=== PATIENT | male | born 1960 | race Caucasian/White ===

== ENCOUNTER → 2018-03-14 07:01 | Outpatient (CLI) | payer MEDICARE, OTHER, SELFPAY ==
--- NOTE | 2018-03-14 07:04 | NM_ITS ---
History and Indications: Chest pain, shortness of breath, tobacco use, family history Procedure: Patient received 0.4 mg of Lexiscan, resting heart rate was 86 bpm, resting blood pressure 141/101 with Lexiscan maximum heart rate achieved was 105 bpm which is less than 85% of the maximum predicted heart rate and a blood pressure was 156/94. With Lexiscan patient complained of shortness of breath. Electrocardiogram: Resting electrocardiogram showed sinus rhythm, with Lexiscan there is less than 1.[address] segment depression noted from the baseline EKG. The EKG portion of the Lexiscan Myoview is nondiagnostic. Cardiac stress and resting SPECT images: Cardiac stress and rest SPECT images were obtained using technetium 99 Myoview 30.4 mCi at stress and 10.5 mCi at rest. Gated SPECT further analysis of segmental wall motion and calculation of the ejection fraction also done. Cardiac stress and rest SPECT images show mild reduced tracer activity in the wall which improves on the resting images suggestive of reversible ischemia, computer derived ejection fraction is 53% with no obvious regional wall motion abnormality, right ventricle is normal size and contractility. Conclusion: 1. The EKG portion of the Lexiscan Myoview is nondiagnostic. 2. Scintigraphic evidence of mild reversible ischemia involving the inferior wall, either derived ejection fraction is 53% with no obvious regional wall motion abnormality, right ventricle is normal size and contractility. 3. Abnormal Lexiscan Myoview study.
--- NOTE | 2018-03-14 07:04 | CA_ITS ---
PROCEDURE: 2-D M-mode and color Doppler study INDICATIONS FOR THE TEST: Chest pain+ COPD Heart Murmur Tobacco Smoking+ Palpitations Fatigue+ Syncope Edema Hypertension+Diabetes Mellitus Rheumatic Fever SOB+CORDERO+Obesity Hyperlipidemia Family History HD Additional History tachycardia PATIENT INFORMATION HEIGHT: 63 WEIGHT: 133 GENDER: Male B/P: 156/95 2-D/M-MODE INTERPRETATION: 2-D MEASUREMENTS OBSERVED VALUES IN CMS Right Ventricular Dimension (RVDd) 1.3 Interventricular Septum (Thickness)(IVsd) 0.9 Left Ventricular Internal Dimensions(LVIDd) 4.7 Left Ventricular Posterior Wall (Thickness)(LVPWd) 0.8 Aortic Root 2.8 Aortic Cusp Separation 2.1 Left Atrial Dimensions (LAD) 3.0 2D 1. Left atrium is mildly enlarged, left ventricle is normal size, there is no concentric left ventricular hypertrophy, visually estimated ejection fraction 55% with no obvious regional wall motion abnormality. 2. The right atrium and right ventricle are normal size and contractility. 3. The aortic, mitral and tricuspid valves are grossly normal. 4. The pulmonic valve is poorly visualized. 5. No significant pericardial effusion noted. DOPPLER INTERROGATION: Doppler interrogation of the aortic, mitral and tricuspid valvular presence of mild mitral and tricuspid regurgitation, tricuspid and jet velocity is insufficient for calculation of the right ventricular systolic pressure, grade 1 diastolic dysfunction seen without tissue Doppler evidence of raised left atrial pressure. CONCLUSION: 1. Mildly enlarged left atrium, normal left ventricular size, visually estimated ejection fraction 55% with no obvious regional wall motion abnormality, grade 1 diastolic dysfunction seen without tissue Doppler evidence of raised left atrial pressure. 2. Mild mitral and tricuspid regurgitation 3. No significant pericardial effusion noted.
--- NOTE | 2018-03-14 10:37 | HMH.ITSHM ---
bismatrol voltaren zanaflex thorazine metoprolol
== END ==
PROVIDERS: PCP Emergency Medicine; Visit Provider Internal Medicine Cardiovascular Disease
DX: R07.9 Chest pain, unspecified (principal); R06.09 Other forms of dyspnea; I20.8 Other forms of angina pectoris
CPT/HCPCS: 78452; 93017; 93306; A9502; J2785

== ENCOUNTER → 2021-04-12 07:13 | Outpatient (CLI) | payer MEDICARE, OTHER, MEDICAID, SELFPAY ==
--- NOTE | 2021-04-12 07:15 | CA_ITS ---
APPROVED REPORT EXAM: Comprehensive 2D, Doppler, and color-flow Echocardiogram Snowboard Designer: ROSA Quezada, RVS Ht: 5 ft 3 in Wt: 130lbs BSA: 1.61 BP: 112/70 mmHg Indications: Chest Pain, Smoker with constant cough Echo Enhancing Agent Comments: Poor acoustic windows due to body habitus, lung impedenceand constant motion with cough. 2D Dimensions IVSd 1.50 cm LVEF (Visual) 68.50 % PWd 0.98 cm LA Volume 30.00 mL LVDd 3.70 cm LA Volume Index 18.60 mL/m2 (M/F) 16-34 LVDs 2.31 cm Aortic Root 2.88 cm Left Atrium 2.34 cm LVOT 1.78 cm (M/F) 1.5-2.5 M-Mode Dimensions LA Diam 3.14 cm (1.9-4.0) Ao Diam 2.73 cm (2.0-3.7) TAPSE 1.88 (<1.7) LV Diastology E Decel Time 157.00 (160-240 msec) E/A Ratio 0.97 MED E' 8.30 (< 7 cm/sec) MED A' 7.00 cm/s E'/MED E' Ratio 8.17 (>14) LAT E' 8.70 (<10 cm/sec) LAT A' 9.80 cm/s E/LAT E' Ratio 7.79 (>14) Aortic Valve LVOT Max 87.00 (70-110 cm/s) LVOT VTI 17.75 cm AoV Peak Pj. 94.00 (50-130 cm/s) AO Peak GR. 3.60 mmHg AO Mean GR. 1.80 (<5 mmHg) AO VTI 19.97 (18-25 cm) DEV (VTI) 2.21 (2.5-4.5 cm2) Mitral Valve MV A Velocity 70.00 (40-130 cm/s) E/A Ratio 0.97 MV Decel. Time 157.00 (160-240 ms) Pulmonary Valve PV Peak Velocity 71.00 (50-150 cm/s) Tricuspid Valve TR P. Velocity 130.00 cm/s RAP Estimate 10.00 mmHg RVSP 16.80 mmHg Left Ventricle Left atrium is qualitatively mildly enlarged, left ventricle is normal size, mild concentric left ventricular hypertrophy, visually estimated ejection fraction approximately 50% with no regional wall motion abnormality, endocardial surface a very poorly visualized. Diastolic parameters are inconclusive. Right Ventricle Right atrium and right ventricle mildly enlarged with normal contractility. Aortic Valve Aortic valve is minimally thickened and fibrosed, there is no aortic stenosis or aortic insufficiency. Mitral Valve Mitral valve grossly normal, there is trace mitral regurgitation. Tricuspid Valve Tricuspid grossly normal, there is trace tricuspid regurgitation, tricuspid regurgitation jet velocity is inadequate calculation of the right ventricular systolic pressure. Pulmonic Valve Pulmonic valve is poorly visualized. Great Vessels Aortic root is normal size. Pericardium No significant pericardial effusion noted. Conclusion 1. Mild biatrial enlargement, normal left ventricular size, mild concentric left ventricular hypertrophy, visually estimated ejection fraction 50% with no regional wall motion abnormality, endocardial surfaces are poorly visualized. 2. Mildly enlarged right ventricle with normal contractility. 3. Trace mitral and tricuspid regurgitation. 4. No significant pericardial effusion noted. Electronically signed by : Sidney Bernard MD 04/12/2021 20:38:35
--- NOTE | 2021-04-12 07:15 | NM_ITS ---
APPROVED REPORT Exam: Nuclear Stress Test Indication: Chest pain, Fatigue, Tobacco use Patient Location: Outpatient Stress Tech: Janiya Morton NM Tech:Yakelin Smith, ARRT, RT (R)(N) Ht: 5 ft 3 in Wt: 130 lbs HR: 78 bpm BP: 140/93 mmHg BSA: 1.61 m2 BMI: 23.0 History: Chest pain, Fatigue, Tobacco use Procedure: Patient received a 0.4 mg of intravenous Lexiscan, resting heart rate 78 bpm, resting blood pressure 140/93 mmHg, with Lexiscan maximum heart rate achived was 96 bpm which is Less than 85 % of the maximum predicted heart rate and blood pressure was 140/95 mmHg. With Lexiscan, patient denied any complaint of chest pain. Electrocardiogram Resting electrocardiogram shows sinus rhythm, with Lexiscan there is less than 1.[address] segment depression noted from the baseline EKG. The EKG portion of the Lexiscan Myoview is nondiagnostic. Cardiac Stress and Resting SPECT Images: Cardiac Stress and Resting SPECT images were obtained using technetium 99m Myoview 30.3 mCi stress and 9.95 mCi at rest. Gated SPECT for analysis of segmental wall motion and calculation of the ejection fraction also done, prone images were also obtained. Cardiac stress and resting SPECT images show uniform myocardial activity without segmental perfusion abnormality, computer derived ejection fraction is 54% with no regional wall motion abnormality, right ventricle is mildly enlarged with normal contractility, there is transient ischemic dilatation of the left ventricle seen, raising the concerns for presence of balanced ischemia. Conclusion: 1. The EKG portion of the Lexiscan is nondiagnostic. 2. No scintigraphic evidence of reversible ischemia seen, computer derived ejection fraction is 54% with no regional wall motion abnormality, right ventricle is mildly enlarged with normal contractility, there is transient ischemic dilatation of the left ventricle seen, raising the concerns for presence of balanced ischemia, other causes for transient ischemic dilatation of the left ventricle includes microvascular disease, elevated left ventricular end-diastolic pressure, hypertensive heart disease and diabetes. Clinical correlation is recommended. 3. Abnormal Lexiscan Myoview study. Electronically signed by : Sidney Bernard MD 04/12/2021 19:36:41
--- NOTE | 2021-04-12 07:15 | CA_ITS ---
APPROVED REPORT Exam: Pharmacologic Technologist: Janiya Morton Ht: 5 ft 3 in Wt: 130 lbs BSA: 1.61 m2 HR: 78 bpm BP: 140/93 mmHg Indications: Chest pain Medical History Medications: Omeprazole,,,,, Aspirin,,,,, Mirtazopine,,,,, ClonAZEPAM,,,,, Acetaminophen,,,,, Sertraline,,,,, BenaDRYL,,,,, Trazodone,,,,, ZYprexa,,,,, Remeron,,,,, PEPTO-Bismol,,,,, CHlorpromazine,,,,, Stress Test Details Test: LEXISCAN HR Resting HR: 77 bpm Max Heart Rate (APMHR): 162.303261 bpm Max HR Achieved: 97 bpm Target HR (85% APMHR): 137.026182 bpm % of APMHR: 59.88 Recovery HR: 84 bpm BP Resting BP: 140.0/93.0 mmHg Max BP: 150.0/94.0 mmHg Recovery BP: 150.0/102.0 mmHg ECG Resting ECG: Normal sinus rhythm Clinical Exercise duration: 04:01 min Highest Stage Achieved: Stress ECG Conclusion Symptoms: Shortness of air, mild stomach discomfort, malaise. No chest pain. Arrhythmias/Ectopy: Brief, transient bradycardia with heart block. ST-T Changes: No significant changes. Conclusion: Unremarkable Lexiscan stress. Myoview images reported separately. Electronically signed by : Sidney Bernard MD 04/12/2021 19:30:20
--- NOTE | 2021-04-12 09:01 | HMH.ITSHM ---
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 []ASA OMEPRAZOLE CHLORPROMAZINE CLONAZEPAM DIPHEN METOPROLOL MIRTAZAPINE OLANZAPINE SERTRALINE TRAZADONE
== END ==
PROVIDERS: PCP Emergency Medicine; Visit Provider Urology
DX: F17.200 Nicotine dependence, unspecified, uncomplicated (principal); F41.9 Anxiety disorder, unspecified; R07.89 Other chest pain
CPT/HCPCS: 78452; 93017; 93306; A9502; J2785

== ENCOUNTER 2022-04-13 08:04 | Inpatient (IN) | payer MEDICARE, OTHER, SELFPAY ==
[2022-04-13] VITALS (19 sets, daily range): BP systolic 114–154; BP diastolic 68–98; PULSE 76–115; RESP 18–33; TEMP 36.6–37.6; O2SAT 91–100; BMI 20.9; BMI 19.7
--- NOTE | 2022-04-13 08:17 | XR_ITS ---
FINAL REPORT CLINICAL HISTORY: cough FINDINGS: The heart size is normal. The mediastinum is normal. There is mild scarring. There is no focal infiltrate or edema. There are no pleural effusions. There is no pneumothorax. There is no osseous abnormality. IMPRESSION: No acute cardiopulmonary process Reviewed, Interpreted and Dictated by Jim Urbina III, MD Transcribed by Tyler Oakley Authenticated and [facility]
--- NOTE | 2022-04-13 08:18 | CT_ITS ---
FINAL REPORT CLINICAL HISTORY: confusion FINDINGS: Axial images of the head were obtained without contrast. Coronal reformatted images were also obtained. This study was performed with techniques to keep radiation doses as low as reasonably achievable (ALARA). Individualized dose reduction techniques using automated exposure control or adjustment of mA and/or kV according to the patient's size were employed. There is generalized age-appropriate atrophy. Periventricular low-attenuation areas are seen consistent with mild chronic ischemic changes. There is no evidence of intracranial hemorrhage or mass. There is no evidence of acute infarct. There is no evidence of shift of the midline structures. No skull abnormality is seen on the bone window images. IMPRESSION: Atrophy and mild periventricular chronic ischemic changes. No acute intracranial abnormality identified. Reviewed, Interpreted and Dictated by Jim Urbina III, MD Transcribed by Tyler Oakley Authenticated and [facility]
--- NOTE | 2022-04-13 08:44 | PC.NURSE ---
pt to ct per stretcher
--- NOTE | 2022-04-13 08:47 | HMH.EDGENADL ---
Discharge Plan Disposition Patient Disposition: Admitted As Inpatient Condition: Fair Prescriptions Prescriptions: No Action acetaminophen [Tylenol Extra Strength] 500 mg tablet 500 mg PO Q6H PRN (Reason: unknown) chlorpromazine 200 mg tablet 200 mg PO QHS olanzapine [Zyprexa] 20 mg tablet 20 mg PO QHS omeprazole 40 mg capsule,delayed release(DR/EC) 40 mg PO DAILY metoprolol succinate 100 mg tablet extended release 24 hr 100 mg PO DAILY aspirin [Adult Low Dose Aspirin] 81 mg tablet,delayed release (DR/EC) 81 mg PO DAILY trazodone 100 mg tablet 100 mg PO HS mirtazapine 45 mg tablet 45 mg PO HS clonazepam 1 mg tablet 1 mg PO QHS sertraline [Zoloft] 100 mg Tablet 100 mg PO DAILY oxcarbazepine 300 mg Tablet 300 mg PO BID Referrals Follow up/Referrals: James Menchaca MD [Primary Care Provider] - See instructions Clinical Impressions Clinical Impression: Syncope, Rhabdomyolysis due to COVID-19 Discharge ED Provider: Anupam Villaseñor General Adult HPI General Chief complaint: Fall Stated complaint: AMS Time Seen by Provider: 04/13/22 08:10 Mode of Arrival: Ambulatory Source of Information: Patient Limitations: No Limitations Description of Symptoms (Recalled from ER Triage Doc. by RN): to ed per squad pt resident tigre ortiz sent for eval after fall in shower. unwitnessed fall unsure of how long pt laid on floor. pt confused denies any c/o at present. History of Present Illness HPI narrative: This is a 61-year-old male with history of ACS, COPD, psychiatric disease who is presenting with altered mental status. Per EMS, patient was found at residence in the bathroom for unknown downtime. Confused on initial evaluation, so brought to the [facility] ED for further evaluation. No other history able to be obtained secondary to patient's mental status Related Data Home Medications Medication Instructions Recorded Confirmed acetaminophen 500 mg tablet 500 mg PO Q6H PRN unknown 02/28/18 04/13/22 (Tylenol Extra Strength) chlorpromazine 200 mg tablet 200 mg PO QHS sleep 02/28/18 04/13/22 olanzapine 20 mg tablet (Zyprexa) 20 mg PO QHS sleep 02/28/18 04/13/22 aspirin 81 mg tablet,delayed 81 mg PO DAILY Heart disease 02/28/19 04/13/22 release (Adult Low Dose Aspirin) metoprolol succinate 100 mg 100 mg PO DAILY High blood pressure 02/28/19 04/13/22 tablet,extended release 24 hr omeprazole 40 mg capsule,delayed 40 mg PO DAILY GERD 02/28/19 04/13/22 release mirtazapine 45 mg tablet 45 mg PO HS sleep 11/26/20 04/13/22 trazodone 100 mg tablet 100 mg PO HS sleep 11/26/20 04/13/22 clonazepam 1 mg tablet 1 mg PO QHS Anxiety 04/13/22 04/13/22 oxcarbazepine 300 mg tablet 300 mg PO BID unknown 04/13/22 04/13/22 sertraline 100 mg tablet (Zoloft) 100 mg PO DAILY Depression 04/13/22 04/13/22 Allergies Allergy/AdvReac Type Severity Reaction Status Date / Time No Known Allergies Allergy Verified 06/02/21 14:19 [facility] Medical History (Updated 04/13/22 @ 11:01 by Anupam Villaseñor MD) Abnormal stress test Angina, class IV Anxiety Chest pain Dyspnea Palpitations Tobacco dependence syndrome Social History Smoking Status: Current every day smoker tobacco type: cigarettes alcohol intake: former substance use type: denies use current occupational status: disabled Travel in the last 8 weeks: None ROS Obtained: Yes unobtainable due to mental status Physical Exam General General appearance: alert and other Comment: Disheveled, unkempt. No acute distress, but confused Head Head exam: atraumatic, normocephalic and normal inspection Eye Eye exam: Present normal appearance, PERRL, EOMI and conjunctival injection; Absent nystagmus ENT ENT exam: Present normal exam and mucous membranes moist Neck Neck exam: Present normal inspection and full ROM Chest Chest inspection: Present normal inspection and symmetric
--- NOTE | 2022-04-13 08:58 | PC.NURSE ---
pt return from ct
--- NOTE | 2022-04-13 08:59 | ECG_ITS ---
APPROVED REPORT Exam: Resting ECG HR:96 bpm ECG Measurements Heart Rate 96 AXES NE 137 P 69 QRSd 90 QRS 70 QT 348 T 76 QTc 402 Conclusion SINUS RHYTHM WITH OCCASIONAL SUPRAVENTRICULAR PREMATURE COMPLEXES BORDERLINE ECG UNCONFIRMED REPORT Electronically signed by : Kenji James MD 04/14/2022 17:10:07
[2022-04-13 09:12] LABS: Microscopic, Urine URINE MICROSCOPIC (MICROSCOPIC)
[2022-04-13 09:14] LABS: VBG Base Excess 6.1 mmol/L (-2.4-2.3); VBG HCO3 31.7 mmol/L (23-30); VBG Oxygen Saturation 53.4 % (50-70); VBG PCO2 58.4 mmol/L (35-51); VBG PH 7.35 mmol/L (7.31-7.41); VBG PO2 29.2 mmol/L (28-40); VBG Total CO2 33.5 mmol/L (23-27)
[2022-04-13 09:23] LABS: Influenza A, PCR Not Detected (NotDetected); Influenza B, PCR Not Detected (NotDetected)
[2022-04-13 09:27] LABS: Basophils # 0.1 K/mm3 (0-0.2); Basophils % 0.5 % (0.1-2.0); Eosinophils % 0.2 % (0.1-12.0); Hematocrit 53.6 % (42.0-52.0); Hemoglobin 16.8 g/dL (14.1-18.0); Lymphocytes # 0.2 K/mm3 (0.7-4.5); Lymphocytes % 1.3 % (10-50); Mean Corpuscular HGB Conc 31.3 g/dL (31.8-35.4); Mean Corpuscular Hemoglobin 31.9 pg (27.0-31.2); Mean Corpuscular Volume 101.9 fl (80-94); Mean Platelet Volume 7.8 fl (7.4-10.4); Monocytes # 0.9 K/mm3 (0.1-1.0); Monocytes % 7.3 % (1.7-9.3); Neutrophils # 11.7 K/mm3 (1.8-7.8); Neutrophils % 90.7 % (37.0-80.0); Platelet Count 344 K/mm3 (142-424); Red Blood Count 5.26 M/mm3 (4.60-6.20); Red Cell Distribution Width 14.3 % (11.5-17.5); White Blood Count 12.9 K/mm3 (4.8-10.8)
[2022-04-13 09:29] LABS: Appearance,Urine CLEAR (Clear); Bilirubin,Urine Negative (Negative); Blood, Urine 2+ (Negative); Color,Urine YELLOW (Yellow); Glucose,Urine (UA) Negative (Negative); Ketones,Urine Negative (Negative); Leukocyte Esterase,Urine Negative (Negative); MANUAL DIFFERENTIAL MANUAL DIFFERENTIAL (MANUAL DIFF); Nitrate,Urine Negative (Negative); PH,Urine 7.5 (5.0-8.5); Protein,Urine 1+ (Negative); Urobilinogen,Urine 0.2 EU/dl (0.2)
[2022-04-13 09:30] LABS: Lactic Acid 1.9 mmol/L (0.7-2.1)
[2022-04-13 09:32] LABS: Alanine Aminotransferase 24 U/L (12-78); Albumin Level 4.2 g/dl (3.5-5.0); Albumin/Globulin Ratio 1.3 (1.1-1.8); Alkaline Phosphatase 102 U/L (38-126); Anion Gap 9.7 mEq/L (5-15); Aspartate Amino Transferase 94 U/L (17-59); Bilirubin,Total 0.5 mg/dl (0.2-1.3); Blood Urea Nitrogen 7 mg/dl (9-20); Calcium 9.6 mg/dl (8.4-10.2); Carbon Dioxide 36 mmol/L (22.0-30.0); Chloride 92 mmol/L (98-107); Creatinine Clearance Estimated 74 mL/min (50-200); Estimated Glomerular Filt Rate 86 ml/min (>60); GFR (African American) 105 ML/MIN (>60); Globulin 3.2 g/dL (1.3-3.2); Glucose 102 mg/dl (74-100); Potassium 3.7 mmoL/L (3.5-5.1); Sodium 134 mmol/L (136-145); Total Protein,Serum 7.4 g/dl (6.3-8.2)
[2022-04-13 09:33] LABS: Ethyl Alcohol < 10 mg/dl (0-10)
[2022-04-13 09:43] LABS: Coronavirus 19, PCR Detected (NotDetected); Troponin I < 0.01 ng/ml (0.00-0.034)
[2022-04-13 09:52] LABS: Bacteria,Urine Trace /lpf; Squamous Epithelial Cell,Urine Occasional #/hpf (0-5)
[2022-04-13 10:03] LABS: Creatine Kinase 7663 U/L (55-170); Hypochromasia 1+; Lymphocytes % 3 % (10-50); Macrocytosis 1+; Monocytes % 6 % (2-9); Neutrophils % 91 % (42-76); Platelet Estimate Normal; Total Cells Counted 100
--- NOTE | 2022-04-13 10:08 | PC.NURSE ---
paged who is flight surgeon for
--- NOTE | 2022-04-13 10:45 | PC.NURSE ---
2ND CALL OUT FOR DR CABRERA
--- NOTE | 2022-04-13 10:57 | PC.NURSE ---
called care management
--- NOTE | 2022-04-13 11:29 | PC.NURSE ---
attempted to call report
--- NOTE | 2022-04-13 11:49 | PC.NURSE ---
report called to floor
--- NOTE | 2022-04-13 12:11 | PC.NURSE ---
urine output 475cc
--- NOTE | 2022-04-13 12:21 | EXP.PULM.CON ---
[facility] Medical History (Updated 04/13/22 @ 15:46 by Rose Hansen MD) Abnormal stress test Acute respiratory failure with hypoxia Angina, class IV Anxiety Chest pain Dyspnea Palpitations Pneumonia due to COVID-19 virus Tobacco dependence syndrome Social History Smoking Status: Current every day smoker tobacco type: cigarettes alcohol intake: former substance use type: denies use current occupational status: disabled Travel in the last 8 weeks: None Review of Systems Review of Systems Review of systems (narrative): Limited review of systems obtained. Constitutional Constitutional: Reports body ache(s) and Reports fatigue Eyes Eyes: Denies dry eyes, Denies irritation and Denies itchy eyes ENT Ears, Nose, Mouth, and Throat: Denies facial pain, Denies lip swelling and Denies throat swelling *Cardiovascular Cardiovascular: Reports dyspnea and Reports dyspnea on exertion *Respiratory Respiratory: Reports chest congestion, Reports cough, Reports dyspnea, Reports dyspnea on exertion and Reports wheezing *Gastrointestinal Gastrointestinal: Denies abdominal pain, Denies belching and Denies cramping *Musculoskeletal Musculoskeletal: Reports muscle weakness, Reports myalgias and Reports other (No small joint swelling or Pain) Psychiatric Psychiatric: Denies homicidal ideation and Denies suicidal ideation Endocrine Endocrine: Reports fatigue and Denies heat intolerance Hematologic/Lymphatic Hematologic/Lymphatic: Denies easy bleeding and Denies lymphadenopathy Allergic/Immunologic Allergic/Immunologic: Denies itchy eyes, Denies lip swelling, Denies throat swelling and Reports wheezing Pulmonology Exam Inpatient Vital signs and Labs for Last 24 Hours: Temp Pulse Resp BP Pulse Ox 98.7 F 92 H 18 141/91 H 100 04/13/22 08:06 04/13/22 12:00 04/13/22 12:00 04/13/22 12:00 04/13/22 12:00 Laboratory Results - last 24 hr 04/13/22 08:25: Urine Color Yellow, Urine Appearance Clear, Urine pH 7.5, Ur Specific [place] 1.010, Urine Protein 1+, Urine Glucose (UA) Negative, Urine Ketones Negative, Urine Blood 2+, Urine Nitrate Negative, Urine Bilirubin Negative, Urine Urobilinogen 0.2, Ur Leukocyte Esterase Negative, Urine RBC 5-10, Urine WBC None, Ur Squamous Epith Cells Occasional, Urine Bacteria Trace 04/13/22 08:25: WBC 12.9 H, RBC 5.26, Hgb 16.8, Hct 53.6 H, MCV 101.9 H, MCH 31.9 H, MCHC 31.3 L, RDW 14.3, Plt Count 344, MPV 7.8, Neut % (Auto) 90.7 H, Lymph % (Auto) 1.3 L, [place] % (Auto) 7.3, Eos % (Auto) 0.2, Baso % (Auto) 0.5, Neut # (Auto) 11.7 H, Lymph # (Auto) 0.2 L, [place] # (Auto) 0.9, Eos # (Auto) 0.0, Baso # (Auto) 0.1, Total Counted 100, Neutrophils % (Manual) 91 H, Lymphocytes % (Manual) 3 L, Monocytes % (Manual) 6, Platelet Estimate Normal, Hypochromasia 1+, Macrocytosis 1+ 04/13/22 08:25: Sodium 134 L, Potassium 3.7, Chloride 92 L, Carbon Dioxide 36 H, Anion Gap 9.7, BUN 7 L, Creatinine 0.90, Estimated Creat Clear 74, Estimated GFR 86, Est GFR ( Amer) 105, Glucose 102 H, Calcium 9.6, Total Bilirubin 0.5, AST 94 H, ALT 24, Alkaline Phosphatase 102, Total Creatine Kinase 7663 H*, Troponin I < 0.01, Total Protein 7.4, Albumin 4.2, Globulin 3.2, Albumin/Globulin Ratio 1.3 04/13/22 08:25: Lactate 1.9 04/13/22 08:25: SARS-CoV-2 (PCR) Detected A, Influenza A Untype (PCR) Not detected, Influenza Type B (PCR) Not detected 04/13/22 08:25: Plasma/Serum Alcohol < 10 04/13/22 08:33: VBG pH 7.35, VBG pCO2 58.4 H, VBG pO2 29.2, VBG HCO3 31.7 H, VBG Total CO2 33.5 H, VBG O2 Saturation 53.4, VBG Base Excess 6.1 H I & O for Labs for Last 24 Hours: Intake & Output 04/10/22 04/11/22 04/12/22 04/13/22 23:59 23:59 23:59 23:59 Weight 130 lb Head: normocephalic ENT: normal exam, normal oropharynx and mucous membranes moist Neck: normal inspection Respiratory: CTA bilaterally, respiratory distress, rhonchi, wheezes, diminished air movement and able to speak in complete sentences Cardiac: Tachycardia and radial pulses prese
--- NOTE | 2022-04-13 13:37 | PC.NURSE ---
patient arrived to floor by stretcher from ED
--- NOTE | 2022-04-13 14:32 | P.CONPHA_ITS ---
[facility] Pharmacy VTE Monitoring Patient Demographics Admission date: 04/13/22 Report Date: 04/13/22 Time: 14:32 Patient Allergies No Known Allergies Allergy (Verified 06/02/21 14:19) Height: 1.6 m Weight: 50.519 kg Current Active Problems (Updated 04/13/22 @ 11:01 by Anupam Villaseñor MD) Syncope (Acute) Rhabdomyolysis due to COVID-19 (Acute) VTE Risk Labs: VTE Related Lab Results Hgb 16.8 g/dL (14.1-18.0) 04/13/22 08:25 Hct 53.6 % (42.0-52.0) H 04/13/22 08:25 Plt Count 344 K/mm3 (142-424) 04/13/22 08:25 BUN 7 mg/dl (9-20) L 04/13/22 08:25 Creatinine 0.90 mg/dl (0.66-1.25) 04/13/22 08:25 Estimated Creat Clear 74 mL/min (50-200) 04/13/22 08:25 Clinical Trial Participant: Yes Prophylaxis VTE Prophylaxis Ordered?: Yes Types of VTE Prophylaxis: TEDS Knee High
--- NOTE | 2022-04-13 14:36 | P.CONPHA_ITS ---
Pharmacy Intervention Comments: verified home medication list using list from [facility] in [place]
--- NOTE | 2022-04-13 14:36 | HMH.PHAINT1 ---
Pharmacy Intervention Comments: verified home medication list using list from [facility] in [place]
--- NOTE | 2022-04-13 16:00 | PC.NURSE ---
Patient VSS, 3L NC, B/L expiratory wheezing throughout with dry cough; respiratory did PRN breathing treatment and patient states it helped. Shows no s/s of acute distress noted, call light within reach, bed at lowest level for safety; will continue to monitor.
--- NOTE | 2022-04-13 21:25 | PC.NURSE ---
received call back from [facility] that they are unable to fax patient information to us for admission documentation, states logistic manager will be here first thing in the morning with paperwork. pt is unable to answer questions.
[2022-04-14] VITALS (7 sets, daily range): BP systolic 132–149; BP diastolic 64–89; PULSE 77–109; RESP 16–20; TEMP 36.6–37.2; O2SAT 94–99; BMI 20.6
[2022-04-14 07:26] LABS: Chloride 102 mmol/L (98-107)
[2022-04-14 07:27] LABS: Sodium 135 mmol/L (136-145)
[2022-04-14 07:30] LABS: Alanine Aminotransferase 23 U/L (12-78); Albumin Level 3.3 g/dl (3.5-5.0); Albumin/Globulin Ratio 1.3 (1.1-1.8); Alkaline Phosphatase 52 U/L (38-126); Aspartate Amino Transferase 233 U/L (17-59); Bilirubin,Total 0.5 mg/dl (0.2-1.3); Blood Urea Nitrogen 10 mg/dl (9-20); Carbon Dioxide 28 mmol/L (22.0-30.0); Creatinine Clearance Estimated 99 mL/min (50-200); Estimated Glomerular Filt Rate 138 ml/min (>60); GFR (African American) 167 ML/MIN (>60); Globulin 2.5 g/dL (1.3-3.2); Total Protein,Serum 5.8 g/dl (6.3-8.2)
[2022-04-14 07:36] LABS: Calcium 8.1 mg/dl (8.4-10.2); Glucose 86 mg/dl (74-100)
--- NOTE | 2022-04-14 07:41 | PC.NURSE ---
Pt a/o x2. Pt did not voice any c/o to staff. Pt tolerating 3 L nc well with sats >90%. Call light within reach.
--- NOTE | 2022-04-14 09:36 | EXP.PULM.PN ---
Subjective *Date: 04/21/22 *Time: 14:32 Interval history: Denies any new respiratory complaints. Admits improvement in his symptoms. Pulmonology Exam Inpatient Vital signs and Labs for Last 24 Hours: Temp Pulse Resp BP Pulse Ox 98.5 F 109 H 16 148/89 H 97 04/14/22 08:00 04/14/22 08:00 04/14/22 08:00 04/14/22 08:00 04/14/22 08:00 Laboratory Results - last 24 hr 04/13/22 08:25: Urine RBC 5-10, Urine WBC None, Ur Squamous Epith Cells Occasional, Urine Bacteria Trace 04/13/22 08:25: Total Counted 100, Neutrophils % (Manual) 91 H, Lymphocytes % (Manual) 3 L, Monocytes % (Manual) 6, Platelet Estimate Normal, Hypochromasia 1+, Macrocytosis 1+ 04/13/22 08:25: Total Creatine Kinase 7663 H*, Troponin I < 0.01 04/13/22 08:25: SARS-CoV-2 (PCR) Detected A, Influenza A Untype (PCR) Not detected, Influenza Type B (PCR) Not detected 04/14/22 05:50: Sodium 135 L, Potassium 4.0, Chloride 102, Carbon Dioxide 28, Anion Gap 9.0, BUN 10 D, Creatinine 0.60 L D, Estimated Creat Clear 99, Estimated GFR 138, Est GFR ( Amer) 167 D, Glucose 86, Calcium 8.1 L, Total Bilirubin 0.5, AST 233 H D, ALT 23, Alkaline Phosphatase 52, Total Protein 5.8 L, Albumin 3.3 L D, Globulin 2.5, Albumin/Globulin Ratio 1.3 I & O for Labs for Last 24 Hours: Intake & Output 04/11/22 04/12/22 04/13/22 04/14/22 23:59 23:59 23:59 23:59 Intake Total 1158 / 1278 120 / 120 Output Total 400 / 400 Balance 758 / 878 120 / 120 Weight 111 lb 6 oz 116 lb 9 oz Head: normocephalic ENT: normal exam, normal oropharynx and mucous membranes moist Neck: normal inspection Respiratory: CTA bilaterally, respiratory distress, rhonchi, wheezes, diminished air movement or able to speak in complete sentences Cardiac: Tachycardia and radial pulses present GI: soft, distention, tenderness or guarding Rectal (male): deferred Skin: intact, cyanosis or jaundice Neuro: alert and awake Extremities: normal inspection, clubbing or cyanosis Psychiatric: normal affect and cooperative Assessment and Plan *Assessment and plan (1) Pneumonia due to COVID-19 virus: Status: Acute Category: Medical Code(s): U07.1 - COVID-19; J12.82 - Pneumonia due to coronavirus disease 2019 (2) Acute respiratory failure with hypoxia: Status: Resolved Category: Medical Code(s): J96.01 - Acute respiratory failure with hypoxia Plan #COVID-19 pneumonia: #Acute hypoxic respiratory failure: Poor historian. Limited history obtained with the patient and from chart review. Found down, presented to the ER found to be positive for COVID-19 pneumonia. Needing new oxygen requirement. Denies any oxygen usage prior On admission, Requiring 3 L nasal oxygen supplementation. Mild leukocytosis, neutrophil predominant. Lymphopenia noted. CK significantly elevated at 7663. eGFR at 74 COVID-19 PCR positive. Chest x-ray increased interstitial markings/vascular congestion noted. Interval Update: No acute respiratory events overnight. Weaned to room air this morning. Significant improvement in auscultation, no wheezing noted today Plan: -Continue nasal cannula maintain O2 saturation goal of 90% above, wean as tolerated. -Continue remdesivir x 5 days OR untill Discharge -Continue dexamethasone x5 days OR untill Discharge -Continue ceftriaxone azithromycin, can be weaned to levofloxacin to complete total of 6-day course upon discharge -Continue Advair 250 twice daily scheduled along with DuoNebs every 6 hours as needed. Recommend continuing upon discharge -Continue IV fluids at 125 mill per hour for noted rhabdomyolysis, follow repeat a.m. lab -Recommend chemical prophylactic anticoagulation and GI ulcer prophylaxis #Thank you for involving pulmonary in this patient care. We will follow the patient in pulmonary clinic in 4 to 6 weeks post discharge. This Pulmonary noted was changed to draft status (and was resigned today) due to a technical error in the EMR with physician ex
--- NOTE | 2022-04-14 10:15 | SW/DCPLANNER ---
This patient currently resides at [facility]. PT/OT has been ordered today for this patient. Once completed I will speak with patient/family regarding safe discharge plans.
--- NOTE | 2022-04-14 11:12 | HMH.PTEV ---
Physical Therapy Evaluation Rehab PT IP Evaluation Start: 04/14/22 09:57 Freq: ONCE Status: Active Protocol: Document 04/14/22 10:01 VIRGIL (Rec: 04/14/22 11:12 PHOMICHAEL [id number]) Subjective/History History History 61 yowm adm to [facility] with AMS, rhabdo, and found to be COVID+ . He reports he lives at a personal mcc and is generally independent with all mobility. Subjective Subjective Pt has no c/o this am. Rehab PT IP Eval Objective Appearance Patient Behavior Appropriate Patient Orientation Person,Place Difficulty following instructions none Speech Pattern Clear Ambulation Patient Able to Ambulate Yes Ambulation Observation IP General Gait Pattern Observation No Deviations/Normal Ambulation Distance (feet) 30 Ambulation Assistive Device None Ambulation Ability Supervision/Stand by Balance Ability to Arise Able, w/o using arms Sitting Balance Steady, safe Standing Balance Narrow stance w/o support Dynamic Sitting Balance Ability Normal Dynamic Standing Balance Ability Good Transfers Bed Transfer Ability Supervision/Stand by Chair Transfer Ability Supervision/Stand by Sit to Stand Bed Transfer Ability Supervision/Stand by Sit to Stand Chair Transfer Ability Supervision/Stand by MMT All Extremities PT MMT WFL Rehab PT IP prob,goals,plan Problems Date of Evaluation: 04/14/22 Discharge Plan PT Discharge Plan Pt is appropriate to return to prior living situation once medically stable, no inpatient therapy needs at this time. G -code Required No Eval Complexity Eval Charge Codes 20083 - Moderate Complexity PHYSICIAN CERTIFICATION: I certify the specified therapy services for Dov Abrams are required, authorized, and reviewed every 30 days.
--- NOTE | 2022-04-14 11:42 | HMH.OTEV ---
OT Inpatient Evaluation Rehab OT IP Evaluation Start: 04/14/22 10:01 Freq: ONCE Status: Complete Protocol: Document 04/14/22 11:31 SUSAN (Rec: 04/14/22 11:41 SUSAN [id number]) Rehab OT IP Assessment Subjective History Medical Decision Narrative: This is a 61-year-old male with history of ACS, COPD, psychiatric disease who is presenting with altered mental status. On arrival, patient hemodynamically stable, but tachycardic, alert, but confused and disoriented, pupils equal and reactive to light, moving all extremities spontaneously. GCS 14. Differential includes intoxication, withdrawal, intracranial bleed, seizure, stroke, intracranial mass, metabolic disturbance, hyper versus hypoglycemia, hypoxemia , hypercarbia, infectious, among others. Work-up significant for leukocytosis 13 with neutrophilic shift, nonactionable CMP. Troponin negative. VBG with chronic, compensated respiratory acidosis. CK 7600. UA negative, alcohol negative. COVID positive. Patient placed on 3 L nasal cannula given 84% on room air. Chest x-ray negative for any acute cardiopulmonary disease or airspace disease. CT head without evidence of acute intracranial abnormality. Given wheezes, altered mental status, work-up, physical exam , this likely represents a Subjective I can get up. Instructed Patient on proper hand and foot placement to complete bed mobility, transfers, ambulation and ADLs . Patient independent with all tasks. Objective Patient Orientation Person,Name Upper Extremity Gross ROM WFL Bed
--- NOTE | 2022-04-14 14:08 | EXP.HP ---
History of Present Illness *Admission Date: 04/13/22 *Reason for visit:: Syncope *History of present illness: 61-year-old male patient presented to the emergency department via EMS after being found down in room for unknown length of time. In the emergency department he denied any concerns/needs/complaints. He does have a history of COPD, long-term tobacco dependence, and CAD. Chest x-ray revealed no acute cardiopulmonary process. Head CT revealed atrophy and mild periventricular chronic ischemic changes, no acute intracranial abnormality identified Lab work revealed CK of 5900 and COVID-19 positive He received azithromycin, IV fluids, and DuoNebs in the emergency department Pulmonary consulted [facility] Medical History Abnormal stress test Acute respiratory failure with hypoxia Angina, class IV Anxiety Chest pain Dyspnea Palpitations Pneumonia due to COVID-19 virus Tobacco dependence syndrome Family History (Updated 04/14/22 @ 15:45 by Coby Cortez RN) Other Poor historian Social History (Updated 04/14/22 @ 15:45 by Coby Cortez RN) Smoking Status: Current every day smoker tobacco type: cigarettes alcohol intake: former substance use type: denies use current occupational status: disabled Travel in the last 8 weeks: None household members: other housing: assisted living facility lives independently: Yes marital status: single service: No Review of Systems Review of Systems Review of systems:: unable to obtain Review of systems (narrative): Unable to complete review of systems due to patient reports mental status and states I do not remember anything . Denies any concerns/needs before the incident Meds Home Medications and Allergies Home Medications Medication Instructions Recorded Confirmed Type acetaminophen 500 mg tablet 500 mg PO Q6H PRN Mild Pain (Scale 02/28/18 04/13/22 History (Tylenol Extra Strength) Score 1-4) chlorpromazine 200 mg tablet 200 mg PO HS sleep 02/28/18 04/13/22 History olanzapine 20 mg tablet (Zyprexa) 20 mg PO HS sleep 02/28/18 04/13/22 History aspirin 81 mg tablet,delayed 81 mg PO DAILY Heart disease 02/28/19 04/13/22 History release (Adult Low Dose Aspirin) metoprolol succinate 100 mg 100 mg PO DAILY High blood pressure 02/28/19 04/13/22 History tablet,extended release 24 hr omeprazole 40 mg capsule,delayed 40 mg PO DAILY acid reflux 02/28/19 04/13/22 History release mirtazapine 45 mg tablet 45 mg PO HS sleep 11/26/20 04/13/22 History trazodone 100 mg tablet 100 mg PO HS sleep 11/26/20 04/13/22 History clonazepam 1 mg tablet 1 mg PO HS Anxiety 04/13/22 04/13/22 History oxcarbazepine 300 mg tablet 300 mg PO BID seizures 04/13/22 04/13/22 History sertraline 100 mg tablet (Zoloft) 100 mg PO DAILY Depression 04/13/22 04/13/22 History New Prescriptions to Start Prescriptions: Allergies Allergy/AdvReac Type Severity Reaction Status Date / Time No Known Allergies Allergy Verified 06/02/21 14:19 Exam Data for Last 24 hours Vital signs and Labs for Last 24 Hours: Temp Pulse Resp BP Pulse Ox 98.9 F 93 H 18 146/85 H 94 L 04/14/22 12:00 04/14/22 12:00 04/14/22 12:00 04/14/22 12:00 04/14/22 12:00 Laboratory Results - last 24 hr 04/14/22 05:50: Sodium 135 L, Potassium 4.0, Chloride 102, Carbon Dioxide 28, Anion Gap 9.0, BUN 10 D, Creatinine 0.60 L D, Estimated Creat Clear 99, Estimated GFR 138, Est GFR ( Amer) 167 D, Glucose 86, Calcium 8.1 L, Total Bilirubin 0.5, AST 233 H D, ALT 23, Alkaline Phosphatase 52, Total Protein 5.8 L, Albumin 3.3 L D, Globulin 2.5, Albumin/Globulin Ratio 1.3 I & O for Last 24 hours: Intake & Output 04/11/22 04/12/22 04/13/22 04/14/22 23:59 23:59 23:59 23:59 Intake Total 1158 / 1278 240 / 240 Output Total 400 / 400 900 / 900 Balance 758 / 878 -660 / -660 Weight 111 lb 6 oz 116 lb 6.465 oz Co
--- NOTE | 2022-04-14 14:20 | PC.NURSE ---
Per Dr. Hansen placed Pt on Room Air. Pt SPO2 85% on Room Air. Placed Pt on 1 LPM NC. RN aware.
[2022-04-14 15:26] LABS: Creatine Kinase 20307 U/L (55-170)
--- NOTE | 2022-04-14 15:28 | PC.NURSE ---
admission documentation delayed due to difficulty obtaining paperwork from care facility
--- NOTE | 2022-04-14 17:00 | PC.NURSE ---
VSS, patient on RA with O2 sat 85% increased to 1L O2 sat >90%, no s/s of acute distress noted, call light within reach, bed at lowest level; will continue to monitor.
[2022-04-15] VITALS (7 sets, daily range): BP systolic 132–179; BP diastolic 64–94; PULSE 64–96; RESP 16–18; TEMP 36.6–37.1; O2SAT 90–96; BMI 20.6
--- NOTE | 2022-04-15 04:17 | PC.NURSE ---
Pt is alert to self only. Pt has had no complaints this shift. Pt has been up to the chair through the shift, pull alarm attached to pt clothing and working. Pt is receiving NS @ 125. Pt has been incontinent of bladder this shift, tech found urine in the floor, pt was cleaned and room cleaned up. Pt lung sounds clear, no wheezing heard, bowel sounds active, abdomen soft and nontender. O2 sat >90% on 1L NC. Call light in reach and working.
[2022-04-15 08:08] LABS: Chloride 99 mmol/L (98-107); Potassium 3.5 mmoL/L (3.5-5.1); Sodium 135 mmol/L (136-145)
[2022-04-15 08:11] LABS: Alanine Aminotransferase 27 U/L (12-78); Albumin Level 3.5 g/dl (3.5-5.0); Albumin/Globulin Ratio 1.3 (1.1-1.8); Alkaline Phosphatase 74 U/L (38-126); Anion Gap 7.5 mEq/L (5-15); Aspartate Amino Transferase 215 U/L (17-59); Blood Urea Nitrogen 11 mg/dl (9-20); Calcium 7.7 mg/dl (8.4-10.2); Carbon Dioxide 32 mmol/L (22.0-30.0); Creatinine Clearance Estimated 119 mL/min (50-200); Estimated Glomerular Filt Rate 170 ml/min (>60); GFR (African American) 206 ML/MIN (>60); Globulin 2.7 g/dL (1.3-3.2); Glucose 100 mg/dl (74-100); Total Protein,Serum 6.2 g/dl (6.3-8.2)
[2022-04-15 08:12] LABS: Bilirubin,Total < 0.1 mg/dl (0.2-1.3)
--- NOTE | 2022-04-15 10:00 | PC.NURSE ---
Patient O2 sat 90-93% on RA x 30 mins; will continue to monitor. Dr. Hansen notified and he states if medical d/c's patient he wants patient to have 1 week f/u in office. Medical provider Dr. Tan notified.
--- NOTE | 2022-04-15 11:57 | EXP.DC.SUM ---
General Admission date:: 04/13/22 Discharge date: 04/15/22 HPI HPI HPI: 61-year-old male patient presented to the emergency department via EMS after being found down in room for unknown length of time. In the emergency department he denied any concerns/needs/complaints. He does have a history of COPD, long-term tobacco dependence, and CAD. Chest x-ray revealed no acute cardiopulmonary process. Head CT revealed atrophy and mild periventricular chronic ischemic changes, no acute intracranial abnormality identified Lab work revealed CK of 5900 and COVID-19 positive He received azithromycin, IV fluids, and DuoNebs in the emergency department Pulmonary consulted Hospital Course Hospital Course Hospital Course: Patient was admitted to our service from the emergency room. Work-up in the ER was positive for COVID. He was seen in consultation with pulmonary solar sales consultant. He was also found to be in rhabdo, was given IV fluids and had normal creatinine. He was saturating in the low 90s on room air and was insisting on going home. We will send him out on Levaquin per pulmonary recommendations. We will ask him to follow-up with us later this week. Patient is a very poor historian, he relays little recollection of how he came to be here. Blood alcohol in the ER was negative, UDS was not obtained .CT of the brain showed atrophy with no acute process. Exam Data for Last 24 hours Vital signs and Labs for Last 24 Hours: Temp Pulse Resp BP Pulse Ox 98.7 F 96 H 16 134/69 90 L 04/15/22 11:33 04/15/22 11:33 04/15/22 11:33 04/15/22 11:33 04/15/22 11:33 Laboratory Results - last 24 hr 04/14/22 05:50: Total Creatine Kinase H* 04/15/22 07:55: Sodium 135 L, Potassium 3.5, Chloride 99, Carbon Dioxide 32 H, Anion Gap 7.5, BUN 11, Creatinine 0.50 L, Estimated Creat Clear 119, Estimated GFR 170, Est GFR ( Amer) 206 D, Glucose 100, Calcium 7.7 L, Total Bilirubin < 0.1 L, AST 215 H, ALT 27, Alkaline Phosphatase 74, Total Protein 6.2 L, Albumin 3.5, Globulin 2.7, Albumin/Globulin Ratio 1.3 I & O for Last 24 hours: Intake & Output 04/12/22 04/13/22 04/14/22 04/15/22 23:59 23:59 23:59 23:59 Intake Total 1158 / 1278 840 / 840 1248 / 1248 Output Total 400 / 400 1700 / 1700 0 / 0 Balance 758 / 878 -860 / -860 1248 / 1248 Weight 111 lb 6 oz 116 lb 6.465 oz 116 lb 6.465 oz Microbiology Reports for the Last 24 Hours: Microbiology 04/13/22 08:25 Blood Blood Culture - Preliminary NO GROWTH AFTER 48 HOURS 04/13/22 08:25 Blood Blood Culture - Preliminary NO GROWTH AFTER 48 HOURS Constitutional Constitutional: no acute distress and chronically ill appearing *Routine HEENT Exam Head: Present normocephalic Eye: Present EOMI ENT: Present mucous membranes moist *Routine Neck Exam Neck: Present supple *Routine Respiratory Exam Respiratory: Present decreased breath sounds; Absent accessory muscle use or respiratory distress *Routine Cardiovascular Exam Cardiovascular: Present RRR *Routine Abdominal Exam Abdominal: Present soft; Absent tenderness *Routine Extremities Exam Extremities: Absent cyanosis *Routine Skin Exam Skin: Present intact; Absent jaundice *Routine Neurological Exam Neurological: Present alert Results Data Completed and Pending Labs on day of discharge: Labs from last 24 hours 04/15/22 04/14/22 07:55 05:50 Sodium 135 L Potassium 3.5 Chloride 99 Carbon Dioxide 32 H Anion Gap 7.5 BUN 11 Creatinine 0.50 L Estimated Creat Clear 119 Estimated GFR 170 Est GFR ( Amer) 206 D Glucose 100 Calcium 7.7 L Total Bilirubin < 0.1 L AST 215 H ALT 27 Alkaline Phosphatase 74 Total Creatine Kinase 46000 H* Total Protein 6.2 L Albumin 3.5 Globulin 2.7 Albumin/Globulin Ratio 1.3 Preliminary micro results at discharge 04/13/22 08:25 Blood Culture - Preliminary Blood NO G
--- NOTE | 2022-04-15 12:40 | P.CONPHA_ITS ---
Pharmacy Intervention Comments: DISCHARGE MEDICATION COUNSELING PROVIDED. DISCUSSED SHORT-COURSE LEVAQUIN THERAPY. TAKE DAILY, WITH FOOD. WATCH FOR UPSET STOMACH, NAUSEA, DIARRHEA. RARE RISK OF TENDON RUPTURE. POSSIBLE DRUG INTERACTION WITH CHLORPROMAZINE INCREASING RISK OF ARRHYTHMIAS (IRREGULAR HEARTBEAT) WATCH FOR DIZZINESS, LIG HTHEADEDNESS, OR A FLUTTERING IN YOUR CHEST AND IF THIS HAPPENS GO TO THE ER.
--- NOTE | 2022-04-18 12:43 | CARE MANAGER ---
Spoke with someone at [facility] who states initially when the patient came back to them he seemed more short of breath and confused, but he is much better today and back to his normal self. ZBIGNIEW Rubalcava
== END 2022-04-15 13:52 | disposition home or self-care (01) | DRG 177 ==
LOC: ER 10:23 → 2ND 11:38
PROVIDERS: Internal Medicine Pulmonary Disease; Admitting Provider Emergency Medicine; Emergency Provider Emergency Medicine; PCP Emergency Medicine; Visit Provider Emergency Medicine
DX: U07.1 COVID-19 (principal); J12.82 Pneumonia due to coronavirus disease 2019; J96.01 Acute respiratory failure with hypoxia; M62.82 Rhabdomyolysis; J44.0 Chronic obstructive pulmonary disease with (acute) lower respiratory infection; F17.210 Nicotine dependence, cigarettes, uncomplicated
CPT/HCPCS: 36415; 70450; 71045; 80053; 81001; 82550; 82803; 83605; 84484; 85007; 85025; 87040; 93005; 94640; 94761; 97162; 97165; 99285; C9803; J0456; J0696; U0003; U0005

== ENCOUNTER 2022-07-14 06:09 | Inpatient (IN) | payer MEDICARE, OTHER, MEDICAID, SELFPAY ==
[2022-07-14] VITALS (10 sets, daily range): BP systolic 128–149; BP diastolic 70–85; PULSE 62–95; RESP 18–22; TEMP 36.4–39.8; O2SAT 84–99; BMI 18.2; BMI 19.6
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
--- NOTE | 2022-07-14 06:16 | ECG_ITS ---
APPROVED REPORT Exam: Resting ECG HR:96 bpm ECG Measurements Heart Rate 96 AXES [place] 136 P 74 QRSd 92 QRS 71 QT 321 T 83 QTc 374 Conclusion SINUS RHYTHM POSSIBLE LEFT ATRIAL ENLARGEMENT [-0.1mV P-WAVE IN V1/V2] BORDERLINE ECG UNCONFIRMED REPORT Electronically signed by : Kenji James MD 07/15/2022 12:15:35
[2022-07-14 06:27] LABS: ABG Base Excess 5.8 mmol/L (-2.4-2.3); ABG HCO3 30.2 mmhg (22.0-26.0); ABG Oxygen Saturation 88 % (90-100); ABG PCO2 46.7 mmhg (35.0-45.0); ABG PH 7.43 mmol/L (7.35-7.45); ABG PO2 52.8 mmhg (80-100); ABG TCO2 31.6 mmhg (23-27)
[2022-07-14 06:29] LABS: Allen's Test Acceptable; Oxygen 2L %; Source Right Radial
--- NOTE | 2022-07-14 06:31 | XR_ITS ---
FINAL REPORT CLINICAL HISTORY: fever COMPARISON: 04/13/2022 FINDINGS: SINGLE-VIEW CHEST The heart size is normal. The mediastinum is normal. There are chronic changes in both lungs, particularly in the left perihilar region and left base. There is no pneumothorax. IMPRESSION: No acute cardiopulmonary process. Reviewed, Interpreted and Dictated by Emanuel Garcia MD Transcribed by Alena Maxwell Authenticated and . [facility]
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
[2022-07-14 06:41] LABS: Coronavirus 19, PCR Not Detected (NotDetected); Influenza B, PCR Not Detected (NotDetected)
[2022-07-14 06:44] LABS: Basophils # 0.2 K/mm3 (0-0.2); Basophils % 2.4 % (0.1-2.0); Eosinophils % 0.1 % (0.1-12.0); Hematocrit 50.2 % (42.0-52.0); Hemoglobin 16.2 g/dL (14.1-18.0); Lymphocytes # 1.1 K/mm3 (0.7-4.5); Lymphocytes % 12.8 % (10-50); Mean Corpuscular HGB Conc 32.4 g/dL (31.8-35.4); Mean Corpuscular Hemoglobin 32.3 pg (27.0-31.2); Mean Corpuscular Volume 99.7 fl (80-94); Mean Platelet Volume 7.3 fl (7.4-10.4); Monocytes # 0.8 K/mm3 (0.1-1.0); Monocytes % 9.8 % (1.7-9.3); Neutrophils # 6.3 K/mm3 (1.8-7.8); Neutrophils % 74.9 % (37.0-80.0); Platelet Count 252 K/mm3 (142-424); Red Blood Count 5.03 M/mm3 (4.60-6.20); Red Cell Distribution Width 13.9 % (11.5-17.5); White Blood Count 8.5 K/mm3 (4.8-10.8)
[2022-07-14 06:47] LABS: Microscopic, Urine URINE MICROSCOPIC (MICROSCOPIC)
[2022-07-14 06:52] LABS: Chloride 90 mmol/L (98-107); Potassium 3.9 mmoL/L (3.5-5.1); Sodium 131 mmol/L (136-145)
[2022-07-14 06:55] LABS: Alanine Aminotransferase 16 U/L (12-78); Albumin Level 4.4 g/dl (3.5-5.0); Albumin/Globulin Ratio 1.5 (1.1-1.8); Alkaline Phosphatase 83 U/L (38-126); Anion Gap 9.9 mEq/L (5-15); Aspartate Amino Transferase 31 U/L (17-59); Bilirubin,Total 0.3 mg/dl (0.2-1.3); Blood Urea Nitrogen 15 mg/dl (9-20); Carbon Dioxide 35 mmol/L (22.0-30.0); Creatinine Clearance Estimated 56 mL/min (50-200); Estimated Glomerular Filt Rate 69 ml/min (>60); GFR (African American) 83 ML/MIN (>60); Total Protein,Serum 7.4 g/dl (6.3-8.2)
[2022-07-14 06:56] LABS: Calcium 9.4 mg/dl (8.4-10.2); Glucose 99 mg/dl (74-100); Lactic Acid 1.2 mmol/L (0.7-2.1)
[2022-07-14 07:01] LABS: C-Reactive Protein 41.1 mg/L (0-4)
[2022-07-14 07:05] LABS: Appearance,Urine CLEAR (Clear); Bilirubin,Urine Negative (Negative); Blood, Urine 2+ (Negative); Color,Urine YELLOW (Yellow); Glucose,Urine (UA) Negative (Negative); Ketones,Urine Negative (Negative); Leukocyte Esterase,Urine Negative (Negative); Nitrate,Urine Negative (Negative); Protein,Urine 2+ (Negative); Specific Gravity, Urine 1.015 (1.005-1.030); Urobilinogen,Urine 0.2 EU/dl (0.2)
[2022-07-14 07:09] LABS: Influenza A, PCR Detected (NotDetected)
--- NOTE | 2022-07-14 07:13 | HMH.EDAMS ---
Discharge Plan Disposition Patient Disposition: Admitted As Inpatient Chief Complaint: Altered Mental Status Clinical Impressions Clinical Impression: Tobacco dependence syndrome, Delirium due to general medical condition, COPD (chronic obstructive pulmonary disease) with acute bronchitis, Flu syndrome Discharge ED Provider: James Menchaca Altered Mental Status HPI General Chief Complaint: Altered Mental Status Stated Complaint: AMS Time Seen by Provider: 07/14/22 07:13 Mode of Arrival: EMS Source of Information: EMS Limitations: Altered Mental Status Description of Symptoms (Recalled from ER Triage Doc. by RN): EMs called out for an AMS. upin arrival pt had fever 103.7 and room air 84 History of Present Illness HPI narrative: sent from long term with fever and change in mental status - with cough MD complaint: altered mental status Onset (ago): hour(s) Timing confirmed by: caregiver Severity: moderate Associated symptoms: fever Related Data Home Medications Medication Instructions Recorded Confirmed acetaminophen 500 mg tablet 500 mg PO Q6H PRN Mild Pain (Scale 02/28/18 04/13/22 (Tylenol Extra Strength) Score 1-4) chlorpromazine 200 mg tablet 200 mg PO HS sleep 02/28/18 04/13/22 olanzapine 20 mg tablet (Zyprexa) 20 mg PO HS sleep 02/28/18 04/13/22 aspirin 81 mg tablet,delayed 81 mg PO DAILY Heart disease 02/28/19 04/13/22 release (Adult Low Dose Aspirin) metoprolol succinate 100 mg 100 mg PO DAILY High blood pressure 02/28/19 04/13/22 tablet,extended release 24 hr omeprazole 40 mg capsule,delayed 40 mg PO DAILY acid reflux 02/28/19 04/13/22 release mirtazapine 45 mg tablet 45 mg PO HS sleep 11/26/20 04/13/22 trazodone 100 mg tablet 100 mg PO HS sleep 11/26/20 04/13/22 oxcarbazepine 300 mg tablet 300 mg PO BID seizures 04/13/22 04/13/22 sertraline 100 mg tablet (Zoloft) 100 mg PO DAILY Depression 04/13/22 04/13/22 Previous Rx's Medication Instructions Recorded levofloxacin 750 mg tablet 750 mg PO DAILY 7 days #7 tabs 04/15/22 clonazepam 1 mg tablet 1 mg PO HS Anxiety #30 tabs 05/19/22 Allergies Allergy/AdvReac Type Severity Reaction Status Date / Time No Known Allergies Allergy Verified 07/14/22 08:35 [facility] Disclaimer: The information contained in this section may have been updated after the patient was seen, as this information can be updated by other users. Medical History (Updated 07/14/22 @ 08:37 by James Menchaca MD) Abnormal stress test Acute respiratory failure with hypoxia Angina, class IV Anxiety Chest pain Dyspnea Palpitations Pneumonia due to COVID-19 virus Tobacco dependence syndrome Family History (Updated 04/14/22 @ 15:45 by Coby Cortez, ZBIGNIEW) Poor historian Social History (Updated 04/14/22 @ 15:45 by Coby Cortez, ZBIGNIEW) Smoking Status: Current every day smoker tobacco type: cigarettes alcohol intake: former substance use type: denies use current occupational status: disabled Travel in the last 8 weeks: None household members: other housing: assisted living facility lives independently: Yes marital status: single service: No ROS Obtained: Yes All systems reviewed & no additional complaints except as documented Physical Exam General General appearance: alert Head Head exam: normocephalic Eye Eye exam: Present PERRL and EOMI ENT ENT exam: Present mucous membranes dry Neck Neck exam: Present trachea midline; Absent meningismus Respiratory Respiratory exam: Present wheezes and prolonged expiratory phase; Absent respiratory distress Cardiovascular Cardiovascular exam: Present regular rate Abdominal Exam Abdominal exam: Present soft Extremities Exam Extremities exam: Present full ROM Neurological Exam Neurological exam: Present alert, oriented X3 and CN II-XII intact; Absent motor sensory deficit Skin Skin exam: Absent rash Medical Decision Making Medical Records Medical records reviewed: Yes I reviewed
[2022-07-14 07:17] LABS: Bacteria,Urine Trace /lpf; Squamous Epithelial Cell,Urine Occasional #/hpf (0-5); WBC,Urine Occasional #/hpf (0-3)
--- NOTE | 2022-07-14 07:31 | PC.NURSE ---
RT at the bedside
--- NOTE | 2022-07-14 07:43 | PC.NURSE ---
Attempted to wean pt off of O2, sats decreased to 85% on room air. O2 turned back on at 3lpm. notified
[2022-07-14 07:46] LABS: Troponin I < 0.01 ng/ml (0.00-0.034)
[2022-07-14 07:48] LABS: Erythrocyte Sedimentation Rate 2 mm/hr (0-20)
--- NOTE | 2022-07-14 07:49 | PC.NURSE ---
Called care management with admission
[2022-07-14 08:11] LABS: Procalcitonin 0.056 ng/mL (0.0-2.0)
--- NOTE | 2022-07-14 08:35 | PC.NURSE ---
Called report to Dianna
--- NOTE | 2022-07-14 08:52 | PC.NURSE ---
patient arrived to floor by stretcher from ED
[2022-07-14 09:15] LABS: ABG Base Excess -4.3 mmol/L (-2.4-2.3); ABG HCO3 18.7 mmhg (22.0-26.0); ABG Oxygen Saturation 98 % (90-100); ABG PCO2 24.1 mmhg (35.0-45.0); ABG PH 7.51 mmol/L (7.35-7.45); ABG TCO2 19.5 mmhg (23-27)
[2022-07-14 09:16] LABS: Oxygen 3 %
[2022-07-14 09:17] LABS: Allen's Test acceptable; Source Left Radial
--- NOTE | 2022-07-14 10:13 | HMH.PTEV ---
Physical Therapy Evaluation Rehab PT IP Evaluation Start: 07/14/22 09:02 Freq: ONCE Status: Active Protocol: Document 07/14/22 10:07 [facility] (Rec: 07/14/22 10:13 [facility] [id number]) Subjective/History History History This is the initial IP PT evaluation for Dov Abrams. Pt is a 61 y/o male resident of [facility]. Pt was admitted thru the ED w/ flu, respiratory distress, and AMS. Subjective Subjective Pt agree to ambulate w/ PT and participate w/ OT for initial evaluation Rehab PT IP Eval Objective Appearance Patient Behavior Cooperative Patient Orientation Name,Birthday,Year Difficulty following instructions mild Speech Pattern Soft-Spoken Ambulation Patient Able to Ambulate Yes Ambulation Observation IP General Gait Pattern Observation Shuffling Step Ambulation Distance (feet) 25 Ambulation Assistive Device None Ambulation Ability Supervision/Stand by,Contact Guard/Hand Hold Balance Ability to Arise Able, uses arms to help Sitting Balance Steady, safe Standing Balance Steady, wide stance Dynamic Sitting Balance Ability Good Dynamic Standing Balance Ability Fair Transfers Bed Transfer Ability Independent Chair Transfer Ability Independent Sit to Stand Bed Transfer Ability Supervision/Stand by Sit to Stand Chair Transfer Ability Supervision/Stand by Rehab PT IP prob,goals,plan Problems Date of Evaluation: 07/14/22 PT IP Problems Transfers,Gait,Balance,Self care,Safety Rehab Potential Rehab Potential Fair Equipment Needs Assistive Devices None / NA Plan PT Intervention Plan Transfers,Gait,Balance,Self care,Safety,Therapeutic Exercise PT Plan Frequency BID Duration LOS Discharge Goals Bed Transfer Ability Independent,Supervision/Stand by Sit to Stand Chair Transfer Ability Independent,Supervision/Stand by Ambulation Assistive Device None Ambulation Distance (feet) 25 Discharge Plan PT Discharge Plan Pt will benefit from skilled therapy while in [facility] to allow return to PLOF and return to PLOI. Upon dc pt may return
--- NOTE | 2022-07-14 10:19 | HMH.OTEV ---
OT Inpatient Evaluation Rehab OT IP Evaluation Start: 07/14/22 09:02 Freq: ONCE Status: Complete Protocol: Document 07/14/22 10:06 [facility] (Rec: 07/14/22 10:18 [facility] [id number]) Rehab OT IP Assessment Subjective History Pt oriented x 3 on arrival. Pt agreeable to engage in therapy evaluation. Pt was admitted on 07/14/22 via ED due to altered mental status and cough (Flu positive). Prior to being in the hospital, pt lived at [facility]. Pt claims he was independent with ADLs such as dressing, bathing, and feeding . 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 Pt claims he did not use any type of AE during ambulation. Pt has a past medical history: Abnormal stress test Acute respiratory failure with hypoxia Angina, class IV Anxiety Chest pain Dyspnea Palpitations Pneumonia due to COVID-19 virus Tobacco dependence syndrome Subjective I think it's 2024 or something like that. Objective Patient Orientation Person,Place,Birthday Upper Extremity Gross ROM WFL Bed Mobility bed mobility-scooting,bed mobility - supine/sit,bed mobility - rolling Assist Level Contact Guard/Hand Hold Transfer Training Sit/Stand Transfer Assist Level Contact Guard/Hand Hold Lower Body Dressing Ability Assistance X1 Rehab OT IP prob,goals,plan Problems Date of Evaluation: 07/14/22 OT IP Problems Bed Mobility,Transfers,Balance ,Self care,Safety Rehab Potential Rehab Potential Good Equipment Needs Assistive Devices None / NA Plan OT intervention Plan Bed Mobility,Transfers,Balance ,Self care,Safety,Therapeutic Exercise OT Plan Frequency BID Duration
--- NOTE | 2022-07-14 10:58 | HMH.PHAINT1 ---
Pharmacy Intervention Comments: Medication reconciliation completed via chart review and MAR from Akash Robin. -Mackenzie Macario, PharmD Candidate 2022
[2022-07-14 11:21] LABS: Troponin I < 0.01 ng/ml (0.00-0.034)
--- NOTE | 2022-07-14 11:45 | EXP.DC.SUM ---
General Admission date:: 07/14/22 Exam Data for Last 24 hours Vital signs and Labs for Last 24 Hours: Temp Pulse Resp BP Pulse Ox 98.0 F 81 22 140/70 90 L 07/14/22 09:04 07/14/22 09:04 07/14/22 09:04 07/14/22 09:04 07/14/22 09:01 Laboratory Results - last 24 hr 07/14/22 06:20: Urine Color Yellow, Urine Appearance Clear, Urine pH 7.0, Ur Specific [place] 1.015, Urine Protein 2+, Urine Glucose (UA) Negative, Urine Ketones Negative, Urine Blood 2+, Urine Nitrate Negative, Urine Bilirubin Negative, Urine Urobilinogen 0.2, Ur Leukocyte Esterase Negative, Urine RBC 5-10, Urine WBC Occasional, Ur Squamous Epith Cells Occasional, Urine Bacteria Trace 07/14/22 06:20: WBC 8.5, RBC 5.03, Hgb 16.2, Hct 50.2, MCV 99.7 H, MCH 32.3 H, MCHC 32.4, RDW 13.9, Plt Count 252, MPV 7.3 L, Neut % (Auto) 74.9, Lymph % (Auto) 12.8, [place] % (Auto) 9.8 H, Eos % (Auto) 0.1, Baso % (Auto) 2.4 H, Neut # (Auto) 6.3, Lymph # (Auto) 1.1, [place] # (Auto) 0.8, Eos # (Auto) 0.0, Baso # (Auto) 0.2, ESR 2 07/14/22 06:20: Sodium 131 L, Potassium 3.9, Chloride 90 L, Carbon Dioxide 35 H, Anion Gap 9.9, BUN 15, Creatinine 1.10, Estimated Creat Clear 56, Estimated GFR 69, Est GFR ( Amer) 83, Glucose 99, Calcium 9.4, Total Bilirubin 0.3, AST 31, ALT 16, Alkaline Phosphatase 83, C-Reactive Protein 41.1 H, Total Protein 7.4, Albumin 4.4, Globulin 3.0, Albumin/Globulin Ratio 1.5, Procalcitonin 0.056 07/14/22 06:20: Lactate 1.2 07/14/22 06:20: SARS-CoV-2 (PCR) Not detected, Influenza A Untype (PCR) Detected A, Influenza Type B (PCR) Not detected 07/14/22 06:20: Troponin I < 0.01 07/14/22 06:24: Specimen Source Right radial, O2 % 2l, ABG pH 7.43, ABG pCO2 46.7 H, ABG pO2 52.8 L, ABG HCO3 30.2 H, ABG Total CO2 31.6 H, ABG O2 Saturation 88 L, ABG Base Excess 5.8 H, Beny Test Acceptable 07/14/22 07:27: Specimen Source Left radial, O2 % 3, ABG pH 7.51 H, ABG pCO2 24.1 L, ABG pO2 130.0 H, ABG HCO3 18.7 L, ABG Total CO2 19.5 L, ABG O2 Saturation 98, ABG Base Excess -4.3 L, Beny Test acceptable 07/14/22 10:42: Troponin I < 0.01 I & O for Last 24 hours: Intake & Output 07/11/22 07/12/22 07/13/22 07/14/22 23:59 23:59 23:59 23:59 Output Total 750 / 750 Balance -750 / -750 Weight 50.349 kg Results Data Completed and Pending Labs on day of discharge: Labs from last 24 hours 07/14/22 07/14/22 07/14/22 10:42 07:27 06:24 WBC RBC Hgb Hct MCV MCH MCHC RDW Plt Count MPV Neut % (Auto) Lymph % (Auto) [place] % (Auto) Eos % (Auto) Baso % (Auto) Neut # (Auto) Lymph # (Auto) [place] # (Auto) Eos # (Auto) Baso # (Auto) ESR Specimen Source Left radial Right radial O2 % 3 2l ABG pH 7.51 H 7.43 ABG pCO2 24.1 L 46.7 H ABG pO2 130.0 H 52.8 L ABG HCO3 18.7 L 30.2 H ABG Total CO2 19.5 L 31.6 H ABG O2 Saturation 98 88 L ABG Base Excess -4.3 L 5.8 H Beny Test acceptable Acceptable Sodium Potassium Chloride Carbon Dioxide Anion Gap BUN Creatinine Estimated Creat Clear Estimated GFR Est GFR ( Amer) Glucose Lactate Calcium Total Bilirubin AST ALT Alkaline Phosphatase Troponin I < 0.01 C-Reactive Protein Total Protein Albumin Globulin Albumin/Globulin Ratio Procalcitonin Urine Color Urine Appearance Urine pH Ur Specific [place] Urine Protein Urine Glucose (UA) Urine Ketones Urine Blood Urine Nitrate Urine Bilirubin Urine Urobilinogen Ur Leukocyte Esterase Urine RBC Urine WBC Ur Squamous Epith Cells Urine Bacteria SARS-CoV-2 (PCR) Influenza A Untype (PCR) Influenza Type B (PCR) 07/14/22 07/14/22 07/14/22 06:20 06:20 06:20 WBC RBC Hgb Hct MCV MCH MCHC RDW Plt Count MPV Neut % (Auto) Lymph % (Auto) [place] % (Auto) Eos % (Auto) Baso % (Auto) Neut # (Auto)
--- NOTE | 2022-07-14 14:00 | CARE MANAGER ---
Addendum entered by Annabel Pendleton 07/17/22 11:27: The plan for this patient is to return to [facility] Personal correction today. Pili hollins/ Akash Robin is fine with this patient discharging back w/ O2 requirement as long as puts instructions for weaning O2. Pili will transport this patient once O2 is set up at [facility] and discharge orders are in place. Original Note: Spoke with Pili Nelson from [facility]. Discussed patient's health status and care. They will be able to take patient back as long as he is not on Oxygen and functioning at his baseline. ZBIGNIEW Rubalcava
[2022-07-14 15:20] LABS: Troponin I < 0.01 ng/ml (0.00-0.034)
--- NOTE | 2022-07-14 17:26 | EXP.HP ---
History of Present Illness *Admission Date: 07/14/22 *Reason for visit:: Shortness of breath, flu *History of present illness: Mr. Abrams is a 61-year-old male who [facility] He was brought to the ER via EMS due to cough, mild confusion, and fever of 103.7. Patient's saturations were 84% on room air. On arrival he appears fatigued, is hypoxic and febrile. Initiated on 4 L nasal cannula oxygen. Testing on arrival positive for flu A. Chest imaging with no acute process or airspace disease. Given oxygen requirement, patient unable to return back to his personal residential. Admitted for further management. Medicine contacted for admission. After arriving to the floor, patient is pleasant but unable to give much history or review of systems. Appears comfortable and is tolerating 2 L nasal cannula [facility] Disclaimer: The information contained in this section may have been updated after the patient was seen, as this information can be updated by other users. Medical History Abnormal stress test Acute respiratory failure with hypoxia Angina, class IV Anxiety Chest pain Dyspnea Palpitations Pneumonia due to COVID-19 virus Tobacco dependence syndrome Family History Poor historian Social History Smoking Status: Current every day smoker tobacco type: cigarettes alcohol intake: former substance use type: denies use current occupational status: disabled Travel in the last 8 weeks: None household members: other housing: assisted living facility lives independently: Yes marital status: single service: No Review of Systems Review of Systems Review of systems (narrative): 14 point review of systems performed, pertinent positives and negatives as per HPI. Difficult to obtain as patient is a poor historian Meds Home Medications and Allergies Home Medications Medication Instructions Recorded Confirmed Type acetaminophen 500 mg tablet 500 mg PO Q6H PRN Mild Pain (Scale 02/28/18 07/14/22 History (Tylenol Extra Strength) Score 1-4) chlorpromazine 200 mg tablet 200 mg PO HS sleep 02/28/18 07/14/22 History olanzapine 20 mg tablet (Zyprexa) 20 mg PO HS mood 02/28/18 07/14/22 History aspirin 81 mg tablet,delayed 81 mg PO DAILY Heart disease 02/28/19 07/14/22 History release (Adult Low Dose Aspirin) metoprolol succinate 100 mg 100 mg PO DAILY High blood pressure 02/28/19 07/14/22 History tablet,extended release 24 hr omeprazole 40 mg capsule,delayed 40 mg PO DAILY acid reflux 02/28/19 07/14/22 History release mirtazapine 45 mg tablet 45 mg PO HS sleep 11/26/20 07/14/22 History trazodone 100 mg tablet 100 mg PO HS sleep 11/26/20 07/14/22 History oxcarbazepine 300 mg tablet 300 mg PO BID seizures 04/13/22 07/14/22 History sertraline 100 mg tablet (Zoloft) 100 mg PO DAILY Depression 04/13/22 07/14/22 History clonazepam 1 mg tablet 1 mg PO HS Anxiety #30 tabs 05/19/22 07/14/22 Rx bismuth subsalicylate 262 mg/15 mL 524 mg PO Q3HP PRN Diarrhea 07/14/22 07/14/22 History oral suspension diphenhydramine HCl 25 mg capsule 25 mg PO Q6HP PRN allergies 07/14/22 07/14/22 History (Banophen) guaifenesin 100 mg/5 mL oral syrup 200 mg PO Q4H PRN Cough 07/14/22 07/14/22 History New Prescriptions to Start Prescriptions: Allergies Allergy/AdvReac Type Severity Reaction Status Date / Time No Known Allergies Allergy Verified 07/14/22 08:35 Exam Data for Last 24 hours Vital signs and Labs for Last 24 Hours: Temp Pulse Resp BP Pulse Ox 97.5 F L 67 20 128/71 99 07/14/22 16:00 07/14/22 16:00 07/14/22 16:00 07/14/22 16:00 07/14/22 16:00 Laboratory Results - last 24 hr 07/14/22 06:20: Urine Color Yellow, Urine Appearance Clear, Urine pH 7.0, Ur Specific [place] 1.015, Urine Protein 2+, Urine Gluco
--- NOTE | 2022-07-14 21:08 | PC.NURSE ---
Pt is A/O to self. He has been up to the chair most of the day. I was able to wean down o2 to 2L NC. He has tolerated diet well.
[2022-07-15] VITALS (9 sets, daily range): BP systolic 123–148; BP diastolic 62–89; PULSE 56–98; RESP 16–18; TEMP 36.6–37.8; O2SAT 89–96; BMI 20.4
--- NOTE | 2022-07-15 05:26 | PC.NURSE ---
NO ACUTE CHANGES SINCE PREVIOUS ASSESSMENT. PT HAS RESTED WELL THIS SHIFT. PT WAS PLACED ON 4L NASAL CANNULA AT THE START OF THE SHIFT AND IS NOW ON 1L. BED ALARM IN PLACE FOR PT SAFETY.
--- NOTE | 2022-07-15 06:39 | PC.NURSE ---
PT DESATED TO 86% ON 1L SO PT TITRATED BACK UP TO 3L AND PT IS NOW AT 90%
[2022-07-15 07:32] LABS: Basophils # 0.2 K/mm3 (0-0.2); Basophils % 1.6 % (0.1-2.0); Eosinophils # 0.1 K/mm3 (0.0-0.4); Eosinophils % 0.6 % (0.1-12.0); Hematocrit 48.1 % (42.0-52.0); Hemoglobin 14.9 g/dL (14.1-18.0); Lymphocytes # 1.6 K/mm3 (0.7-4.5); Lymphocytes % 16.4 % (10-50); Mean Corpuscular Hemoglobin 31.3 pg (27.0-31.2); Mean Platelet Volume 7.7 fl (7.4-10.4); Monocytes # 0.8 K/mm3 (0.1-1.0); Monocytes % 8.8 % (1.7-9.3); Neutrophils # 6.9 K/mm3 (1.8-7.8); Neutrophils % 72.7 % (37.0-80.0); Platelet Count 219 K/mm3 (142-424); Red Blood Count 4.76 M/mm3 (4.60-6.20); Red Cell Distribution Width 13.8 % (11.5-17.5); White Blood Count 9.5 K/mm3 (4.8-10.8)
[2022-07-15 07:34] LABS: Chloride 94 mmol/L (98-107)
[2022-07-15 07:35] LABS: Potassium 4.1 mmoL/L (3.5-5.1); Sodium 132 mmol/L (136-145)
[2022-07-15 07:37] LABS: Alanine Aminotransferase 12 U/L (12-78); Aspartate Amino Transferase 34 U/L (17-59); Blood Urea Nitrogen 17 mg/dl (9-20); Creatinine Clearance Estimated 84 mL/min (50-200); Estimated Glomerular Filt Rate 115 ml/min (>60); GFR (African American) 140 ML/MIN (>60)
[2022-07-15 07:38] LABS: Albumin Level 3.3 g/dl (3.5-5.0); Albumin/Globulin Ratio 1.3 (1.1-1.8); Alkaline Phosphatase 72 U/L (38-126); Anion Gap 7.1 mEq/L (5-15); Calcium 8.5 mg/dl (8.4-10.2); Carbon Dioxide 35 mmol/L (22.0-30.0); Globulin 2.6 g/dL (1.3-3.2); Glucose 84 mg/dl (74-100); Magnesium 1.7 mg/dl (1.6-2.3); Total Protein,Serum 5.9 g/dl (6.3-8.2)
[2022-07-15 07:43] LABS: Bilirubin,Total 0.1 mg/dl (0.2-1.3)
--- NOTE | 2022-07-15 13:53 | EXP.ACUTE.PN ---
Subjective *Date: 07/15/22 *Time: 13:53 Interval history: Improved mentation today. Sitting up at bedside to eat meals. Tolerating oxygen wean, still requiring 1 to 2 L nasal cannula oxygen. Cough improved. Denies nausea, vomiting, chest pain, headache. Afebrile, vitals within normal limits Medical Exam Vital signs and Labs for Last 24 Hours: Vital Signs Temp Pulse Pulse Resp BP Pulse Ox 07/15/22 11:50 74 07/15/22 11:50 72 07/15/22 12:00 98.2 F 98 H 18 131/74 89 L 07/15/22 08:00 98.2 F 87 18 135/71 96 07/15/22 06:15 72 07/15/22 06:15 70 07/15/22 06:15 94 L 07/15/22 04:00 97.9 F 74 16 123/62 96 07/15/22 00:25 56 L 07/15/22 00:25 56 L 07/14/22 23:38 98.4 F 62 18 140/82 98 07/14/22 19:35 97.9 F 66 20 133/78 92 L 07/14/22 16:00 97.5 F L 67 20 128/71 99 Intake and Output 07/14/22 07/15/22 07/15/22 23:59 07:59 15:59 Intake Total 480 / 600 Output Total 550 / 1300 250 / 1250 1000 / 1250 Balance -70 / -700 -250 / -1250 -1000 / -1250 Intake: Intake, Oral Amount 480 / 600 Output: Output, Urine Amount 550 / 1300 250 / 1250 1000 / 1250 Other: Number of Unmeasured Voids 0 0 Number of Bowel Movements 1 Weight 52.277 kg Patient Weight 07/15/22 23:59 Weight 52.277 kg Laboratory Results - last 24 hr 07/14/22 13:33: Troponin I < 0.01 07/15/22 06:50: WBC 9.5, RBC 4.76, Hgb 14.9, Hct 48.1, MCV 101.0 H, MCH 31.3 H, MCHC 31.0 L, RDW 13.8, Plt Count 219, MPV 7.7, Neut % (Auto) 72.7, Lymph % (Auto) 16.4, [place] % (Auto) 8.8, Eos % (Auto) 0.6, Baso % (Auto) 1.6, Neut # (Auto) 6.9, Lymph # (Auto) 1.6, [place] # (Auto) 0.8, Eos # (Auto) 0.1, Baso # (Auto) 0.2 07/15/22 06:50: Sodium 132 L, Potassium 4.1, Chloride 94 L, Carbon Dioxide 35 H, Anion Gap 7.1, BUN 17, Creatinine 0.70 D, Estimated Creat Clear 84, Estimated GFR 115, Est GFR ( Amer) 140 D, Glucose 84, Calcium 8.5, Magnesium 1.7, Total Bilirubin 0.1 L, AST 34, ALT 12, Alkaline Phosphatase 72, Total Protein 5.9 L, Albumin 3.3 L D, Globulin 2.6, Albumin/Globulin Ratio 1.3 I & O for Labs for Last 24 Hours: Intake & Output 07/12/22 07/13/22 07/14/22 07/15/22 23:59 23:59 23:59 23:59 Intake Total 600 / 600 Output Total 1300 / 1300 1250 / 1250 Balance -700 / -700 -1250 / -1250 Weight 50.349 kg 52.277 kg Constitutional: Present no acute distress, thin and chronically ill appearing Head: Present atraumatic and normocephalic ENT: Present normal exam Neck: Present normal inspection Respiratory: Present wheezes and normal respiratory effort; Absent accessory muscle use, rhonchi or crackles Cardiac: Present Reg Rate and Rhythm GI: Present normal bowel sounds; Absent tenderness Extremities: Present normal inspection and full ROM Skin: Present intact; Absent erythema Neuro: Present Grossly Intact, alert, awake and moves all extremities Assessment and Plan *Assessment and plan (1) Influenza A: Status: Acute Category: Medical Code(s): J10.1 - Influenza due to other identified influenza virus with other respiratory manifestations (2) COPD (chronic obstructive pulmonary disease) with acute bronchitis: Status: Acute Category: Medical Code(s): J44.0 - Chronic obstructive pulmonary disease with (acute) lower respiratory infection; J20.9 - Acute bronchitis, unspecified (3) Delirium due to general medical condition: Status: Acute Category: Medical Code(s): F05 - Delirium due to known physiological condition (4) Anxiety: Status: Chronic Category: Medical Code(s): F41.9 - Anxiety disorder, unspecified (5) Tobacco dependence syndrome: Status: Chronic Category: Medical Code(s): F17.200 - Nicotine dependence, unspecified, uncomplicated (6) Moderate protein-calorie malnutrition: Status: Acute Category: Medical Code(s): E44.0 - Moderate protein-damian
[2022-07-16] VITALS (11 sets, daily range): BP systolic 115–142; BP diastolic 60–74; PULSE 70–90; RESP 16–18; TEMP 36.8–37.3; O2SAT 81–92; BMI 19.5
--- NOTE | 2022-07-16 04:33 | PC.NURSE ---
NO ACUTE CHANGES SINCE PREVIOUS ASSESSMENT. PT ALERT TO SELF. PT IS CURRENTLY ON 1.5 L NC W/ O2 SAT OF 92% AT REST. LUNG SOUNDS - WHEEZES. PT HAS RESTED WELL THIS SHIFT. PT IS TOLERATING DIET WELL. NO NEEDS VOICED AT THIS TIME. CALL LIGHT IN REACH.
--- NOTE | 2022-07-16 06:55 | PC.NURSE ---
AFTER PT GOT UP FROM BED TO CHAIR AND GOT CLEANED UP - PT WAS 83% ON 1.5 L NC. RT INCREASED PTS O2 TO 3 L NC. RT SAID SHE WILL ATTEMPT TO WEAN HIM LATER ON.
[2022-07-16 10:36] LABS: Chloride 91 mmol/L (98-107); Potassium 4.1 mmoL/L (3.5-5.1); Sodium 128 mmol/L (136-145)
[2022-07-16 10:39] LABS: Anion Gap 7.1 mEq/L (5-15); Blood Urea Nitrogen 15 mg/dl (9-20); Calcium 9.1 mg/dl (8.4-10.2); Carbon Dioxide 34 mmol/L (22.0-30.0); Creatinine Clearance Estimated 80 mL/min (50-200); Estimated Glomerular Filt Rate 115 ml/min (>60); GFR (African American) 140 ML/MIN (>60); Glucose 104 mg/dl (74-100)
--- NOTE | 2022-07-16 11:12 | PC.NURSE ---
O2 TITRATED TO 1LNC O2 SATS 92% AT THIS TIME.
--- NOTE | 2022-07-16 13:52 | EXP.ACUTE.PN ---
Subjective *Date: 07/16/22 *Time: 13:52 Interval history: Baseline mentation. Ambulating independently to bathroom. Continues to require oxygen however. Currently on 1 L. Unable to go back to personal retirement as long as he requires oxygen. Aggressively weaning today. Cough improved. Denies nausea, vomiting, chest pain, headache. Afebrile, vitals within normal limits Medical Exam Vital signs and Labs for Last 24 Hours: Vital Signs Temp Pulse Pulse Resp BP Pulse Ox 07/16/22 12:59 73 07/16/22 12:59 74 07/16/22 12:59 91 L 07/16/22 11:11 98.2 F 77 18 130/74 92 L 07/16/22 07:31 98.4 F 83 18 116/67 90 L 07/16/22 06:53 77 07/16/22 06:53 78 07/16/22 04:00 98.4 F 70 18 115/65 92 L 07/16/22 00:00 98.5 F 83 16 141/66 H 92 L 07/15/22 19:57 100.0 F H 89 18 134/74 91 L 07/15/22 17:26 86 07/15/22 17:26 83 07/15/22 17:26 92 L 07/15/22 16:00 98.1 F 84 18 148/89 H 92 L Intake and Output 07/15/22 07/16/22 07/16/22 23:59 07:59 15:59 Intake Total 240 / 600 480 / 840 360 / 840 Output Total 1200 / 2450 450 / 450 Balance -960 / -1850 30 / 390 360 / 390 Intake: Intake, Oral Amount 240 / 600 480 / 840 360 / 840 Output: Output, Urine Amount 1200 / 2450 450 / 450 Output, Urine Amount (Catheter) 0 / 0 Joseph 0 / 0 Other: Number of Unmeasured Voids 0 0 0 Weight 50.065 kg 50 kg Patient Weight 07/16/22 23:59 Weight 50 kg Laboratory Results - last 24 hr 07/16/22 10:00: Sodium 128 L, Potassium 4.1, Chloride 91 L, Carbon Dioxide 34 H, Anion Gap 7.1, BUN 15, Creatinine 0.70, Estimated Creat Clear 80, Estimated GFR 115, Est GFR ( Amer) 140, Glucose 104 H, Calcium 9.1 I & O for Labs for Last 24 Hours: Intake & Output 07/13/22 07/14/22 07/15/22 07/16/22 23:59 23:59 23:59 23:59 Intake Total 600 / 600 480 / 600 840 / 840 Output Total 1300 / 1300 2450 / 2450 450 / 450 Balance -700 / -700 -1970 / -1850 390 / 390 Weight 50.349 kg 52.277 kg 50 kg Microbiology Reports for the Last 24 Hours: Microbiology 07/14/22 06:20 Blood Blood Culture - Preliminary NO GROWTH AFTER 48 HOURS 07/14/22 06:20 Blood Blood Culture - Preliminary NO GROWTH AFTER 48 HOURS Constitutional: Present no acute distress, thin and chronically ill appearing Head: Present atraumatic and normocephalic ENT: Present normal exam Neck: Present normal inspection Respiratory: Present wheezes and normal respiratory effort; Absent accessory muscle use, rhonchi or crackles Cardiac: Present Reg Rate and Rhythm GI: Present normal bowel sounds; Absent tenderness Extremities: Present normal inspection and full ROM Skin: Present intact; Absent erythema Neuro: Present Grossly Intact, alert, awake and moves all extremities Assessment and Plan *Assessment and plan (1) Influenza A: Status: Acute Category: Medical Code(s): J10.1 - Influenza due to other identified influenza virus with other respiratory manifestations (2) COPD (chronic obstructive pulmonary disease) with acute bronchitis: Status: Acute Category: Medical Code(s): J44.0 - Chronic obstructive pulmonary disease with (acute) lower respiratory infection; J20.9 - Acute bronchitis, unspecified (3) Delirium due to general medical condition: Status: Acute Category: Medical Code(s): F05 - Delirium due to known physiological condition (4) Anxiety: Status: Chronic Category: Medical Code(s): F41.9 - Anxiety disorder, unspecified (5) Tobacco dependence syndrome: Status: Chronic Category: Medical Code(s): F17.200 - Nicotine dependence, unspecified, uncomplicated (6) Moderate protein-calorie malnutrition: Status: Acute Category: Medical Code(s): E44.0 - Moderate protein-calorie malnutrition Plan 61-year-old
[2022-07-16 14:20] LABS: Basophils % 0.4 % (0.1-2.0); Eosinophils # 0.1 K/mm3 (0.0-0.4); Eosinophils % 0.6 % (0.1-12.0); Hematocrit 49.8 % (42.0-52.0); Hemoglobin 15.6 g/dL (14.1-18.0); Lymphocytes # 1.4 K/mm3 (0.7-4.5); Lymphocytes % 15.5 % (10-50); Mean Corpuscular HGB Conc 31.4 g/dL (31.8-35.4); Mean Corpuscular Hemoglobin 31.8 pg (27.0-31.2); Mean Corpuscular Volume 101.3 fl (80-94); Mean Platelet Volume 7.3 fl (7.4-10.4); Monocytes # 0.4 K/mm3 (0.1-1.0); Monocytes % 4.3 % (1.7-9.3); Neutrophils # 7.3 K/mm3 (1.8-7.8); Neutrophils % 79.2 % (37.0-80.0); Platelet Count 212 K/mm3 (142-424); Red Blood Count 4.92 M/mm3 (4.60-6.20); Red Cell Distribution Width 13.8 % (11.5-17.5); White Blood Count 9.2 K/mm3 (4.8-10.8)
--- NOTE | 2022-07-16 18:13 | PC.NURSE ---
pt was up to chair for most of shift. 1 lnc for o2 support and tolerated well. nelson removed this evening
[2022-07-17] VITALS: BP 133/80; PULSE 84; RESP 20; TEMP 37.7; O2SAT 98
[2022-07-17 04:00] VITALS: BP 129/78; PULSE 81; RESP 20; TEMP 36.9; O2SAT 93
[2022-07-17 04:43] VITALS: BMI 19.9
--- NOTE | 2022-07-17 05:15 | PC.NURSE ---
PT 86% ON 2 L NC WHILE SLEEPING. INCREASED O2 TO 3.5 L NC FOR O2 SAT OF 90%. WASHCLOTH FOLDER AWARE.
[2022-07-17 06:34] VITALS: PULSE 78; PULSE 79; O2SAT 92
[2022-07-17 06:45] LABS: Basophils % 0.5 % (0.1-2.0); Eosinophils # 0.1 K/mm3 (0.0-0.4); Hematocrit 46.1 % (42.0-52.0); Hemoglobin 14.8 g/dL (14.1-18.0); Lymphocytes # 1.8 K/mm3 (0.7-4.5); Lymphocytes % 20.2 % (10-50); Mean Corpuscular Hemoglobin 32.3 pg (27.0-31.2); Mean Corpuscular Volume 100.9 fl (80-94); Mean Platelet Volume 7.9 fl (7.4-10.4); Monocytes # 0.7 K/mm3 (0.1-1.0); Neutrophils # 6.2 K/mm3 (1.8-7.8); Neutrophils % 70.4 % (37.0-80.0); Platelet Count 243 K/mm3 (142-424); Red Blood Count 4.57 M/mm3 (4.60-6.20); Red Cell Distribution Width 13.9 % (11.5-17.5); White Blood Count 8.9 K/mm3 (4.8-10.8)
[2022-07-17 06:48] LABS: Chloride 92 mmol/L (98-107)
[2022-07-17 06:49] LABS: Sodium 129 mmol/L (136-145)
[2022-07-17 06:52] LABS: Blood Urea Nitrogen 15 mg/dl (9-20); Calcium 8.5 mg/dl (8.4-10.2); Carbon Dioxide 36 mmol/L (22.0-30.0); Creatinine Clearance Estimated 96 mL/min (50-200); Estimated Glomerular Filt Rate 138 ml/min (>60); GFR (African American) 167 ML/MIN (>60); Glucose 88 mg/dl (74-100)
[2022-07-17 07:18] VITALS: BP 137/79; PULSE 75; RESP 18; TEMP 37.3; O2SAT 95
[2022-07-17 10:59] VITALS: BP 117/78; PULSE 85; RESP 18; TEMP 36.9; O2SAT 92
--- NOTE | 2022-07-17 11:26 | EXP.DC.SUM ---
General Admission date:: 07/14/22 Discharge date: 07/17/22 HPI HPI HPI: Mr. Abrams is a 61-year-old male who resides at [facility]. He was brought to the ER via EMS due to cough, mild confusion, and fever of 103.7. Patient's saturations were 84% on room air. On arrival he appears fatigued, is hypoxic and febrile. Initiated on 4 L nasal cannula oxygen. Testing on arrival positive for flu A. Chest imaging with no acute process or airspace disease. Given oxygen requirement, patient unable to return back to his personal intermediate. Admitted for further management. Medicine contacted for admission. After arriving to the floor, patient is pleasant but unable to give much history or review of systems. Appears comfortable and is tolerating 2 L nasal cannula Hospital Course Hospital Course Hospital Course: 61-year-old male who resides in a personal intermediate.? Presents with new oxygen requirement and COPD exacerbation secondary to influenza A.? Admitted to medicine for further management.? Problems addressed as follows: Influenza A COPD exacerbation Acute hypoxemic respiratory failure -Admitted for flu and oxygen requirement. Patient has remained stable for the past 48 hours. Requiring 1 L oxygen during the day, 3 L at night when he sleeps. Room air saturation of 86% on day of discharge. Anticipate he will have an oxygen requirement for the next few weeks during the day, would benefit from continuous nighttime oxygen moving forward. Recommend 3 L nightly continuous. Would recommend weaning daytime oxygen as tolerated based on daily pulse ox monitoring. Recommend pulse ox in the morning after breakfast and in the evening after dinner. Goal saturation greater than 90% to wean off oxygen during the day. Initiated LABA LAMA combo for daytime as needed usage and once a day long-acting usage. Finish Tamiflu as ordered, 5 more doses. First oral dose at personal intermediate this evening. Patient otherwise stable for transfer back to personal intermediate to continue to wean oxygen. Resume remainder of chronic medications for his chronic conditions including his psychiatric diagnoses. Patient has been tolerating good oral intake and ambulating independently to the bathroom without difficulty during admission. Recommend close follow-up/reevaluation at personal care facility to assess for continued improvement. Continue medications for chronic conditions including extensive psychiatric panel.? See med list for full details. Exam Data for Last 24 hours Vital signs and Labs for Last 24 Hours: Temp Pulse Resp BP Pulse Ox 98.4 F 85 18 117/78 92 L 07/17/22 10:59 07/17/22 10:59 07/17/22 10:59 07/17/22 10:59 07/17/22 10:59 Laboratory Results - last 24 hr 07/16/22 14:10: WBC 9.2, RBC 4.92, Hgb 15.6, Hct 49.8, MCV 101.3 H, MCH 31.8 H, MCHC 31.4 L, RDW 13.8, Plt Count 212, MPV 7.3 L, Neut % (Auto) 79.2, Lymph % (Auto) 15.5, [place] % (Auto) 4.3, Eos % (Auto) 0.6, Baso % (Auto) 0.4, Neut # (Auto) 7.3, Lymph # (Auto) 1.4, [place] # (Auto) 0.4, Eos # (Auto) 0.1, Baso # (Auto) 0.0 07/17/22 06:03: WBC 8.9, RBC 4.57 L, Hgb 14.8, Hct 46.1, MCV 100.9 H, MCH 32.3 H, MCHC 32.0, RDW 13.9, Plt Count 243, MPV 7.9, Neut % (Auto) 70.4, Lymph % (Auto) 20.2, [place] % (Auto) 8.0, Eos % (Auto) 1.0, Baso % (Auto) 0.5, Neut # (Auto) 6.2, Lymph # (Auto) 1.8, [place] # (Auto) 0.7, Eos # (Auto) 0.1, Baso # (Auto) 0.0 07/17/22 06:03: Sodium 129 L, Potassium 4.0, Chloride 92 L, Carbon Dioxide 36 H, Anion Gap 5.0, BUN 15, Creatinine 0.60 L, Estimated Creat Clear 96, Estimated GFR 138, Est GFR ( Amer) 167, Glucose 88, Calcium 8.5 I & O for Last 24 hours: Intake & Output 07/14/22 07/15/22 07/16/22 07/17/22 23:59 23:59 23:59 23:59 Intake Total 600 / 600 480 / 600 1200 / 1680 720 / 720 Output Total 1300 / 1300 2450 / 2450 850 / 1150 300 / 300 Balance -700 / -700 -1969 / -1849 350 / 530 420 / 420 Weight 50.349 kg 52.277 kg 50 kg 51 kg Microbiology
--- NOTE | 2022-07-18 13:28 | CARE MANAGER ---
Attempted post-discharge phone interview with Akash Robin, no answer.
== END 2022-07-17 14:35 | disposition home or self-care (01) | DRG 193 ==
LOC: ER 06:19 → 2ND 08:12
PROVIDERS: Admitting Provider Internal Medicine Adolescent Medicine; Emergency Provider Emergency Medicine; PCP Emergency Medicine; Visit Provider Internal Medicine Adolescent Medicine
DX: J10.1 Influenza due to other identified influenza virus with other respiratory manifestations (principal); J96.01 Acute respiratory failure with hypoxia; E44.0 Moderate protein-calorie malnutrition; J44.0 Chronic obstructive pulmonary disease with (acute) lower respiratory infection; Z68.1 Body mass index [BMI] 19.9 or less, adult; J44.1 Chronic obstructive pulmonary disease with (acute) exacerbation; F17.210 Nicotine dependence, cigarettes, uncomplicated; J20.9 Acute bronchitis, unspecified; F41.9 Anxiety disorder, unspecified
CPT/HCPCS: 36415; 51702; 71045; 80048; 80053; 81001; 82803; 83605; 83735; 84145; 84484; 85025; 85651; 86140; 87040; 93005; 94640; 94761; 97110; 97161; 97165; 97530; 99285; C9803; U0003; U0005

== ENCOUNTER 2022-10-09 14:40 | Inpatient (IN) | payer MEDICARE, OTHER, SELFPAY ==
[2022-10-09] VITALS (20 sets, daily range): BP systolic 97–147; BP diastolic 63–84; PULSE 97–154; RESP 20–41; TEMP 37.1–39.8; O2SAT 62–97; BMI 18.8; BMI 16.9
--- NOTE | 2022-10-09 14:37 | ECG_ITS ---
APPROVED REPORT Exam: Resting ECG HR:152 bpm ECG Measurements Heart Rate 152 AXES NC 123 P 77 QRSd 90 QRS 17 QT 271 T 84 QTc 357 Conclusion SINUS TACHYCARDIA, POSSIBLE ATRIAL FLUTTER CRITICAL TEST RESULT UNCONFIRMED REPORT Electronically signed by : Kenji James MD 10/10/2022 20:30:31
[2022-10-09 14:45] LABS: ABG HCO3 30.4 mmhg (22.0-26.0); ABG Oxygen Saturation 92 % (90-100); ABG PH 7.36 mmol/L (7.35-7.45); ABG PO2 65.3 mmhg (80-100); Allen's Test Acceptable; Oxygen 100% %; Source Right Radial
[2022-10-09 14:46] LABS: ABG PCO2 54.6 mmhg (35.0-45.0)
--- NOTE | 2022-10-09 14:52 | HMH.EDGENADL ---
Discharge Plan Disposition Patient Disposition: Admitted As Inpatient Condition: Serious Prescriptions Prescriptions: No Action metoprolol succinate 100 mg tablet extended release 24 hr 100 mg PO DAILY oxcarbazepine 300 mg tablet 300 mg PO BID omeprazole 40 mg capsule,delayed release(DR/EC) 40 mg PO DAILY trazodone 100 mg tablet 100 mg PO HS mirtazapine 45 mg tablet 45 mg PO HS aspirin 81 mg tablet,chewable 81 mg PO DAILY chlorpromazine 200 mg tablet 200 mg PO HS sertraline 50 mg tablet 50 mg PO DAILY olanzapine 20 mg tablet 20 mg PO HS Anoro Ellipta 62.5-25 mcg/actuation Blister With Device 1 inh INHALATION DAILY Referrals Follow up/Referrals: James Menchaca MD [Primary Care Provider] - See instructions Discharge ED Provider: Anupam Bailey General Adult HPI General Chief complaint: Fever Stated complaint: soa Time Seen by Provider: 10/09/22 14:44 History of Present Illness HPI narrative: Patient presents with a 3 to 4-day history of fever. Symptoms are described as moderate without exacerbating alleviating factors. He denies cough he denies UTI symptoms such as hematuria dysuria. Related Data Home Medications Medication Instructions Recorded Confirmed aspirin 81 mg chewable tablet 81 mg PO DAILY Heart 10/09/22 10/09/22 chlorpromazine 200 mg tablet 200 mg PO HS Anxiety 10/09/22 10/09/22 metoprolol succinate 100 mg 100 mg PO DAILY Heart 10/09/22 10/09/22 tablet,extended release 24 hr mirtazapine 45 mg tablet 45 mg PO HS Mood 10/09/22 10/09/22 olanzapine 20 mg tablet 20 mg PO HS Mood 10/09/22 10/09/22 omeprazole 40 mg capsule,delayed 40 mg PO DAILY GERD 10/09/22 10/09/22 release oxcarbazepine 300 mg tablet 300 mg PO BID Seizure Control 10/09/22 10/09/22 sertraline 50 mg tablet 50 mg PO DAILY Mood 10/09/22 10/09/22 trazodone 100 mg tablet 100 mg PO HS Sleep 10/09/22 10/09/22 umeclidinium 62.5 mcg-vilanterol 1 inh inhalation DAILY Lungs 10/09/22 10/09/22 25 mcg/actuation powdr for inhalation (Anoro Ellipta) Allergies Allergy/AdvReac Type Severity Reaction Status Date / Time No Known Allergies Allergy Verified 07/14/22 08:35 [facility] Disclaimer: The information contained in this section may have been updated after the patient was seen, as this information can be updated by other users. Medical History Abnormal stress test Acute respiratory failure with hypoxia Angina, class IV Anxiety Chest pain Dyspnea Palpitations Pneumonia due to COVID-19 virus Tobacco dependence syndrome Family History Other Poor historian Social History Smoking Status: Current every day smoker tobacco type: cigarettes alcohol intake: former substance use type: denies use current occupational status: disabled Travel in the last 8 weeks: None household members: other housing: assisted living facility lives independently: Yes marital status: single service: No ROS Obtained: Yes All systems reviewed & no additional complaints except as documented Physical Exam General General appearance: lethargic (Patient appears mildly lethargic but is oriented person place although thought year was 2023.) Head Head exam: atraumatic Eye Eye exam: Present normal appearance ENT ENT exam: Present normal exam Neck Neck exam: Present normal inspection Chest Chest inspection: Present normal inspection Respiratory Respiratory exam: Present other (Diffuse rhonchi) Cardiovascular Cardiovascular exam: Present tachycardia Abdominal Exam Abdominal exam: Present soft; Absent tenderness Extremities Exam Extremities exam: Present normal inspection Back Exam Back exam: Present normal inspection Neurological Exam Neurological exam: Present other (Mild lethargy); Absent oriente
[2022-10-09 15:10] LABS: Activated Partial Thrombo Time 27.3 seconds (22.8-30.6); INR 1.12 (0.9-1.1)
[2022-10-09 15:14] LABS: Basophils # 0.1 K/mm3 (0-0.2); Basophils % 0.3 % (0.1-2.0); Eosinophils # 0.1 K/mm3 (0.0-0.4); Eosinophils % 0.5 % (0.1-12.0); Hematocrit 51.1 % (42.0-52.0); Hemoglobin 16.4 g/dL (14.1-18.0); Lymphocytes # 0.5 K/mm3 (0.7-4.5); Lymphocytes % 2.6 % (10-50); Mean Corpuscular HGB Conc 32.1 g/dL (31.8-35.4); Mean Corpuscular Hemoglobin 33.2 pg (27.0-31.2); Mean Corpuscular Volume 103.2 fl (80-94); Mean Platelet Volume 7.8 fl (7.4-10.4); Monocytes % 4.6 % (1.7-9.3); Platelet Count 325 K/mm3 (142-424); Red Blood Count 4.96 M/mm3 (4.60-6.20); Red Cell Distribution Width 14.8 % (11.5-17.5); White Blood Count 20.6 K/mm3 (4.8-10.8)
[2022-10-09 15:16] LABS: Alanine Aminotransferase 21 U/L (12-78); Albumin Level 4.4 g/dl (3.5-5.0); Alkaline Phosphatase 112 U/L (38-126); Anion Gap 8.3 mEq/L (5-15); Aspartate Amino Transferase 45 U/L (17-59); Bilirubin,Direct 0.6 mg/dl (0.0-0.4); Bilirubin,Indirect 0.5 mg/dL (0.0-0.9); Bilirubin,Total 1.1 mg/dl (0.2-1.3); Bilirubin,Unconjugated 0.5 mg/dL (0.0-1.1); Blood Urea Nitrogen 51 mg/dl (9-20); Carbon Dioxide 37 mmol/L (22.0-30.0); Chloride 97 mmol/L (98-107); Creatinine Clearance Estimated 38 mL/min (50-200); Estimated Glomerular Filt Rate 44 ml/min (>60); GFR (African American) 54 ML/MIN (>60); Glucose 125 mg/dl (74-100); Potassium 4.3 mmoL/L (3.5-5.1); Sodium 138 mmol/L (136-145); Total Protein,Serum 8.6 g/dl (6.3-8.2)
[2022-10-09 15:19] LABS: Ethyl Alcohol < 10 mg/dl (0-10)
[2022-10-09 15:20] LABS: MANUAL DIFFERENTIAL MANUAL DIFFERENTIAL (MANUAL DIFF)
[2022-10-09 15:24] LABS: Coronavirus 19, PCR Not Detected (NotDetected); Influenza A, PCR Not Detected (NotDetected); Influenza B, PCR Not Detected (NotDetected)
--- NOTE | 2022-10-09 15:26 | XR_ITS ---
FINAL REPORT CLINICAL HISTORY: soa COMPARISON: 07/14/2022 FINDINGS: A portable view of the chest was obtained. Cardiac and mediastinal silhouettes are within normal limits. New bilateral interstitial opacities with peripheral airspace disease on the right favored to be pneumonia. Underlying pulmonary edema not excluded. There is no pleural effusion or pneumothorax. IMPRESSION: Findings favoring pneumonia. Recommend follow-up to resolution. Reviewed, Interpreted and Dictated by Aimee Mcnamara MD Transcribed by Jayshree Moncada Authenticated and [facility]
--- NOTE | 2022-10-09 15:27 | PC.NURSE ---
Spoke to attending regarding WBC 20, Lactate 20, and his GFR which was lower than anticipated. CT PE study canceled and changing to plain film
--- NOTE | 2022-10-09 15:27 | HMH.ITSTN ---
GFR only 44 I advised he wants to hold on scan
[2022-10-09 15:28] LABS: Troponin I 0.08 ng/ml (0.00-0.034)
[2022-10-09 15:33] LABS: Procalcitonin 1.81 ng/mL (0.0-2.0)
--- NOTE | 2022-10-09 15:33 | PC.NURSE ---
Attending has deferred sepsis abx at this time. Awaiting UA and CXR
[2022-10-09 15:44] LABS: Microscopic, Urine URINE MICROSCOPIC (MICROSCOPIC)
[2022-10-09 15:46] LABS: Appearance,Urine CLEAR (Clear); Blood, Urine 2+ (Negative); Color,Urine YELLOW (Yellow); Glucose,Urine (UA) Negative (Negative); Ketones,Urine Negative (Negative); Leukocyte Esterase,Urine Negative (Negative); Nitrate,Urine Negative (Negative); PH,Urine 7.5 (5.0-8.5); Protein,Urine 3+ (Negative); Specific Gravity, Urine 1.015 (1.005-1.030)
[2022-10-09 15:49] LABS: Magnesium 2.3 mg/dl (1.6-2.3)
[2022-10-09 15:50] LABS: Bilirubin,Urine 1+ (Negative)
--- NOTE | 2022-10-09 15:59 | PC.NURSE ---
Patient titrated from 15L 100% NRB mask to 10L 100% NRB mask. Tolerating well. Per attending, we will keep saturation >88%. Will attempt to change to NC.
--- NOTE | 2022-10-09 16:34 | PC.NURSE ---
Patient tried on NC at 2, 4, 6 LPM, but did not tolerate well. Dropped saturation 78%-80% almost immediately. Placed back on 15L 100% NRB. Breathing tx given. Placed on Venturi Mask at 50%/15L. Tolerating well with saturations >88%
[2022-10-09 16:37] LABS: Lymphocytes % 6 % (10-50); Monocytes % 4 % (2-9); Neutrophils % 90 % (42-76); Platelet Estimate Normal; RBC Morphology Normal; Total Cells Counted 100
--- NOTE | 2022-10-09 16:39 | PC.NURSE ---
Patient's saturations staying 80%-83%. Spoke to attending and will now start Vapotherm
[2022-10-09 16:42] LABS: RBC,Urine Occasional #/hpf (0-3); Squamous Epithelial Cell,Urine Occasional #/hpf (0-5)
--- NOTE | 2022-10-09 16:50 | PC.NURSE ---
Patient now on 30L/80% Vapotherm. Tolerating well with saturations >88%
--- NOTE | 2022-10-09 17:09 | EXP.HP ---
[facility] Disclaimer: The information contained in this section may have been updated after the patient was seen, as this information can be updated by other users. Medical History Abnormal stress test Acute respiratory failure with hypoxia Angina, class IV Anxiety Chest pain Dyspnea Palpitations Pneumonia due to COVID-19 virus Tobacco dependence syndrome Family History Other Poor historian Social History Smoking Status: Current every day smoker tobacco type: cigarettes alcohol intake: former substance use type: denies use current occupational status: disabled Travel in the last 8 weeks: None household members: other housing: assisted living facility lives independently: Yes marital status: single service: No Meds Home Medications and Allergies Home Medications Medication Instructions Recorded Confirmed Type aspirin 81 mg chewable tablet 81 mg PO DAILY Heart 10/09/22 10/09/22 History chlorpromazine 200 mg tablet 200 mg PO HS Anxiety 10/09/22 10/09/22 History metoprolol succinate 100 mg 100 mg PO DAILY Heart 10/09/22 10/09/22 History tablet,extended release 24 hr mirtazapine 45 mg tablet 45 mg PO HS Mood 10/09/22 10/09/22 History olanzapine 20 mg tablet 20 mg PO HS Mood 10/09/22 10/09/22 History omeprazole 40 mg capsule,delayed 40 mg PO DAILY GERD 10/09/22 10/09/22 History release oxcarbazepine 300 mg tablet 300 mg PO BID Seizure Control 10/09/22 10/09/22 History sertraline 50 mg tablet 50 mg PO DAILY Mood 10/09/22 10/09/22 History trazodone 100 mg tablet 100 mg PO HS Sleep 10/09/22 10/09/22 History umeclidinium 62.5 mcg-vilanterol 1 inh inhalation DAILY Lungs 10/09/22 10/09/22 History 25 mcg/actuation powdr for inhalation (Anoro Ellipta) New Prescriptions to Start Prescriptions: Allergies Allergy/AdvReac Type Severity Reaction Status Date / Time No Known Allergies Allergy Verified 07/14/22 08:35 Exam Data for Last 24 hours Vital signs and Labs for Last 24 Hours: Temp Pulse Resp BP Pulse Ox FiO2 99.6 F 125 H 22 111/71 90 L 50 10/09/22 16:51 10/09/22 16:51 10/09/22 16:51 10/09/22 16:30 10/09/22 16:51 10/09/22 16:38 Laboratory Results - last 24 hr 10/09/22 14:40: WBC 20.6 H*, RBC 4.96, Hgb 16.4, Hct 51.1, MCV 103.2 H, MCH 33.2 H, MCHC 32.1, RDW 14.8, Plt Count 325, MPV 7.8, Neut % (Auto) 92.0 H, Lymph % (Auto) 2.6 L, [place] % (Auto) 4.6, Eos % (Auto) 0.5, Baso % (Auto) 0.3, Neut # (Auto) 19.0 H, Lymph # (Auto) 0.5 L, [place] # (Auto) 1.0, Eos # (Auto) 0.1, Baso # (Auto) 0.1, Total Counted 100, Neutrophils % (Manual) 90 H, Lymphocytes % (Manual) 6 L, Monocytes % (Manual) 4, Platelet Estimate Normal, RBC Morphology Normal 10/09/22 14:40: Sodium 138, Potassium 4.3, Chloride 97 L, Carbon Dioxide 37 H, Anion Gap 8.3, BUN 51 H, Creatinine 1.60 H, Estimated Creat Clear 38, Estimated GFR 44 L, Est GFR ( Amer) 54 L, Glucose 125 H, Calcium 9.0, Total Bilirubin 1.1, Direct Bilirubin 0.6 H, Conjugated Bilirubin 0.0, Indirect Bilirubin 0.5, Unconjugated Bilirubin 0.5, AST 45, ALT 21, Alkaline Phosphatase 112, Troponin I 0.08 H, Total Protein 8.6 H D, Albumin 4.4 10/09/22 14:40: Plasma/Serum Alcohol < 10 10/09/22 14:40: Lactate 2.0 10/09/22 14:40: Procalcitonin 1.81 10/09/22 14:40: PT 12.0, INR 1.12 H, APTT 27.3 10/09/22 14:40: Magnesium 2.3 10/09/22 14:42: Specimen Source Right radial, O2 % 100%, ABG pH 7.36, ABG pCO2 54.6 H, ABG pO2 65.3 L, ABG HCO3 30.4 H, ABG Total CO2 32.0 H, ABG O2 Saturation 92, ABG Base Excess 5.0 H, Beny Test Acceptable 10/09/22 15:07: SARS-CoV-2 (PCR) Not detected, Influenza A Untype (PCR) Not detected, Influenza Type B (PCR) Not detected 10/09/22 15:38: Urine Color Yellow, Urine Appearance Clear, Urine pH 7.5, Ur Specific [place] 1.015, Urine Protein 3+, Urine Glucose (UA) Negative, Urin
--- NOTE | 2022-10-09 18:04 | PC.NURSE ---
[id number] BED ASSIGNMENT REQUESTED, ROOM 207. ALL STAFF NOTIFIED
--- NOTE | 2022-10-09 18:14 | PC.NURSE ---
Attempted to call report, asked to call back in 15 min
[2022-10-09 20:13] LABS: ABG Base Excess 0.6 mmol/L (-2.4-2.3); ABG HCO3 27.9 mmhg (22.0-26.0); ABG Oxygen Saturation 91 % (90-100); ABG PH 7.25 mmol/L (7.35-7.45); ABG PO2 70.9 mmhg (80-100); ABG TCO2 29.9 mmhg (23-27)
--- NOTE | 2022-10-09 20:14 | ECG_ITS ---
APPROVED REPORT Exam: Resting ECG HR:113 bpm ECG Measurements Heart Rate 113 AXES AL 124 P 64 QRSd 92 QRS 65 QT 322 T 81 QTc 389 Conclusion SINUS TACHYCARDIA Left atrial abnormality O/w normal ECG UNCONFIRMED REPORT Electronically signed by : Kenji James MD 10/10/2022 20:30:01
[2022-10-09 20:16] LABS: Allen's Test Acceptable; Source Right Radial
[2022-10-09 20:17] LABS: ABG PCO2 65.2 mmhg (35.0-45.0)
--- NOTE | 2022-10-09 20:25 | PC.NURSE ---
Received pt report from Renaldo Ibrahim to assume pt care at this time.
--- NOTE | 2022-10-09 20:43 | EXP.HP ---
History of Present Illness *Admission Date: 10/09/22 *Reason for visit:: Fevers, Shortness of air *History of present illness: Mr. Abrams is a 62-year-old male who is a resident of a local Assisted Living Facility, [facility]. He has a past medical history per chart review of Chronic Tobacco Use, history of Covid Pneumonia, history of Admissions for acute hypoxic respiratory failure, Schizophrenia, HTN and CAD. He presented to [facility] due to a 3-4 day history of fevers. On evaluation of the patient on admission to the floor he is lethargic and unable to answer subjective questioning. In the ER on admission he was noted to be hypoxic, oxygen saturation on admission was noted to be 62 on 2L, also in the ER he was documented to be 82% on 15L. ABG obtained on admission showed a pH of 7.36, pCO2 54.6, pO2 65.3, HCO3 30.4. On arrival to the Medical Surgical unit he was on 30L 80% FiO2 and per REPOSSESSION AGENT his SpO2 was 89%. ABG was obtained upon arrival to the floor, pH is 7.25, pCO2 65.2, pO2 70.9, HCO3 27.9, spO2 91%. In the ER on admission the patient had a CBC that showed WBC 20.6, Temperature was 103.6, HR was 154, RR was 41. Cxray showed new bilateral interstitial opacities with peripheral airspace disease on the right. Troponin was elevated in the ER at 0.08. EKG obtained on the floor showed ST with Rate of [address] segment elevation or depression. The patient will be admitted with initial impression: Sepsis, Acute Hypoxic and Hypercapnic Respiratory Failure, Acute Respiratory Acidosis, Pneumonia, NSTEMI, JASS. The patient was placed on the step-down unit for close monitoring, ABG will be repeated on the BIPAP after 2 hours. Pulmonary will be consulted for the am. [facility] Disclaimer: The information contained in this section may have been updated after the patient was seen, as this information can be updated by other users. Medical History Abnormal stress test Acute respiratory failure with hypoxia Acute respiratory failure with hypoxia and hypercapnia JASS (acute kidney injury) Angina, class IV Anxiety Chest pain COPD (chronic obstructive pulmonary disease) with acute bronchitis Coronary artery disease Dyspnea Elevated brain natriuretic peptide (BNP) level Elevated d-dimer Elevated troponin Hypertension NSTEMI (non-ST elevated myocardial infarction) Palpitations Pneumonia Pneumonia due to COVID-19 virus Respiratory acidosis Schizophrenia Sepsis Tobacco dependence syndrome Family History Other Poor historian Social History Smoking Status: Current every day smoker tobacco type: cigarettes alcohol intake: former substance use type: denies use current occupational status: disabled Travel in the last 8 weeks: None household members: other housing: assisted living facility lives independently: Yes marital status: single service: No Review of Systems Review of Systems Review of systems:: unable to obtain Meds Home Medications and Allergies Home Medications Medication Instructions Recorded Confirmed Type aspirin 81 mg chewable tablet 81 mg PO DAILY Heart health 10/09/22 10/09/22 History chlorpromazine 200 mg tablet 200 mg PO HS Anxiety 10/09/22 10/09/22 History metoprolol succinate 100 mg 100 mg PO DAILY High blood pressure 10/09/22 10/09/22 History tablet,extended release 24 hr mirtazapine 45 mg tablet 45 mg PO HS Depression 10/09/22 10/09/22 History olanzapine 20 mg tablet 20 mg PO HS Depression 10/09/22 10/09/22 History omeprazole 40 mg capsule,delayed 40 mg PO DAILY acid reflux 10/09/22 10/09/22 History release oxcarbazepine 300 mg tablet 300 mg PO BID Seizure Control 10/09/22 10/09/22 History trazodone 100 mg tablet 100 mg PO HS Sleep 10/09/22 10/09/22 History umeclidinium 62.5 mcg-vilanterol 1 inh
[2022-10-09 20:47] LABS: NT Pro Brain Natriuretic Pep. 1010 pg/mL (0-125)
[2022-10-09 20:51] LABS: Troponin I 0.07 ng/ml (0.00-0.034)
[2022-10-09 20:55] LABS: Procalcitonin 1.51 ng/mL (0.0-2.0)
[2022-10-09 21:28] LABS: Adenovirus,PCR Not Detected (NotDetected); Bordetella Pertussis Not Detected (NotDetected); Chlamydophila Pneumoniae, PCR Not Detected (NotDetected); Coronavirus 19, PCR Not Detected (NotDetected); Coronavirus 229E Not Detected (NotDetected); Coronavirus NL63 Not Detected (NotDetected); Coronavirus OC43 Not Detected (NotDetected); Coronovirus HKU1,PCR Not Detected (NotDetected); Human Metapneumovirus Not Detected (NotDetected); Influenza A, PCR Not Detected (NotDetected); Influenza AH1, 2009 Not Detected (NotDetected); Influenza AH1, PCR Not Detected (NotDetected); Influenza AH3,PCR Not Detected (NotDetected); Influenza B, PCR Not Detected (NotDetected); Mycoplasma Pneumoniae, PCR Not Detected (NotDetected); Parainfluenza 1, PCR Not Detected (NotDetected); Parainfluenza 2, PCR Not Detected (NotDetected); Parainfluenza 3, PCR Not Detected (NotDetected); Parainfluenza 4, PCR Not Detected (NotDetected); Respiratory Syncytial Virus Not Detected (NotDetected); Rhinovirus/Enterovirus Not Detected (NotDetected)
[2022-10-09 22:58] LABS: ABG Base Excess 3.3 mmol/L (-2.4-2.3); ABG HCO3 30.5 mmhg (22.0-26.0); ABG Oxygen Saturation 96 % (90-100); ABG PH 7.26 mmol/L (7.35-7.45); ABG PO2 96.5 mmhg (80-100); ABG TCO2 32.6 mmhg (23-27)
[2022-10-09 22:59] LABS: Oxygen 80 %
[2022-10-09 23:00] LABS: Allen's Test Acceptable; Source Right Radial; Vent Rate 20
[2022-10-09 23:03] LABS: ABG PCO2 70.3 mmhg (35.0-45.0)
--- NOTE | 2022-10-09 23:40 | EXP.SEPSISRE ---
[facility] Tissue Perfusion Eval Sepsis Re-Evaluation Performed: Yes Date Performed: 10/09/22 Time Performed: 22:00
[2022-10-09 23:45] LABS: Troponin I 0.05 ng/ml (0.00-0.034)
[2022-10-10] VITALS (31 sets, daily range): BP systolic 105–135; BP diastolic 71–86; PULSE 82–113; RESP 20–31; TEMP 35.9–36.6; O2SAT 90–99; BMI 16.9
[2022-10-10 00:23] LABS: ABG Base Excess -1.3 mmol/L (-2.4-2.3); ABG HCO3 25.7 mmhg (22.0-26.0); ABG Oxygen Saturation 91 % (90-100); ABG PH 7.26 mmol/L (7.35-7.45); ABG PO2 69.3 mmhg (80-100); ABG TCO2 27.5 mmhg (23-27)
[2022-10-10 00:24] LABS: Allen's Test Acceptable; Oxygen 50 %; Source Right Radial; Vent Rate 20
[2022-10-10 00:25] LABS: ABG PCO2 58.8 mmhg (35.0-45.0)
--- NOTE | 2022-10-10 03:35 | PC.NURSE ---
Notified GAMBLING COUNSELLOR pt has not been able to produce urine t/o shift. GAMBLING COUNSELLOR states to insert nelson at this time.
--- NOTE | 2022-10-10 03:46 | PC.NURSE ---
Notified MASH PREPARATORY OPERATOR pt is very lethargic. Pt had no response to insertion of nelson catheter. Slightly opened eyes to sternal rub. MASH PREPARATORY OPERATOR states to notify RT to get ABG.
[2022-10-10 04:01] LABS: ABG Base Excess 2.2 mmol/L (-2.4-2.3); ABG Oxygen Saturation 94 % (90-100); ABG PH 7.28 mmol/L (7.35-7.45); ABG PO2 77.9 mmhg (80-100); ABG TCO2 30.9 mmhg (23-27)
[2022-10-10 04:02] LABS: Oxygen 50 %; Vent Rate 20
[2022-10-10 04:03] LABS: ABG PCO2 63.4 mmhg (35.0-45.0); Allen's Test Acceptable; Source Left Radial
--- NOTE | 2022-10-10 06:11 | EXP.EVENT.NO ---
Patient monitored closely overnight, had sitter at bedside. Overnight the patient became more alert, requested a drink. Given a bipap break, unable to urinate. No urine output recorded since admission to the floor. Joseph placed resulted in 1200 ml. Placed back on bipap commercial glazier. At bedside commercial glazier arouses to touch on bipap. Able to answer questioning. Sitter at bedside.
[2022-10-10 06:46] LABS: Chloride 104 mmol/L (98-107); Sodium 139 mmol/L (136-145)
[2022-10-10 06:47] LABS: Potassium 4.5 mmoL/L (3.5-5.1)
[2022-10-10 06:49] LABS: Alanine Aminotransferase 14 U/L (12-78); Albumin Level 3.3 g/dl (3.5-5.0); Alkaline Phosphatase 80 U/L (38-126); Anion Gap 7.5 mEq/L (5-15); Aspartate Amino Transferase 34 U/L (17-59); Bilirubin,Total 0.5 mg/dl (0.2-1.3); Blood Urea Nitrogen 36 mg/dl (9-20); Carbon Dioxide 32 mmol/L (22.0-30.0); Creatinine Clearance Estimated 68 mL/min (50-200); Estimated Glomerular Filt Rate 99 ml/min (>60); GFR (African American) 119 ML/MIN (>60); Globulin 3.3 g/dL (1.3-3.2); Total Protein,Serum 6.6 g/dl (6.3-8.2)
[2022-10-10 06:50] LABS: Calcium 7.7 mg/dl (8.4-10.2); Glucose 129 mg/dl (74-100)
[2022-10-10 06:55] LABS: Basophils # 0.1 K/mm3 (0-0.2); Basophils % 0.3 % (0.1-2.0); Eosinophils # 0.1 K/mm3 (0.0-0.4); Eosinophils % 0.5 % (0.1-12.0); Hematocrit 44.7 % (42.0-52.0); Lymphocytes # 0.9 K/mm3 (0.7-4.5); Lymphocytes % 4.6 % (10-50); Mean Corpuscular HGB Conc 30.1 g/dL (31.8-35.4); Mean Corpuscular Hemoglobin 31.8 pg (27.0-31.2); Mean Corpuscular Volume 105.4 fl (80-94); Mean Platelet Volume 7.8 fl (7.4-10.4); Monocytes # 0.6 K/mm3 (0.1-1.0); Monocytes % 3.2 % (1.7-9.3); Neutrophils # 17.2 K/mm3 (1.8-7.8); Neutrophils % 91.5 % (37.0-80.0); Platelet Count 297 K/mm3 (142-424); Red Blood Count 4.24 M/mm3 (4.60-6.20); Red Cell Distribution Width 15.3 % (11.5-17.5); White Blood Count 18.8 K/mm3 (4.8-10.8)
[2022-10-10 06:56] LABS: Hemoglobin 13.5 g/dL (14.1-18.0); MANUAL DIFFERENTIAL MANUAL DIFFERENTIAL (MANUAL DIFF); NT Pro Brain Natriuretic Pep. 702 pg/mL (0-125)
[2022-10-10 07:34] LABS: Lymphocytes % 4 % (10-50); Monocytes % 2 % (2-9); Neutrophils % 94 % (42-76); Platelet Estimate Normal; RBC Morphology Normal; Total Cells Counted 100
--- NOTE | 2022-10-10 08:03 | EXP.PHA.CONS ---
Pharmacy Consult Date: 10/10/22 Time: 08:03 Referring provider: DR BEST Reason for Consult:: VANCOMYCIN DOSING CONSULT Allergies Allergy/AdvReac Type Severity Reaction Status Date / Time No Known Allergies Allergy Verified 07/14/22 08:35 Home Medications Medication Instructions Recorded Confirmed Type aspirin 81 mg chewable tablet 81 mg PO DAILY Heart 10/09/22 10/09/22 History chlorpromazine 200 mg tablet 200 mg PO HS Anxiety 10/09/22 10/09/22 History metoprolol succinate 100 mg 100 mg PO DAILY Heart 10/09/22 10/09/22 History tablet,extended release 24 hr mirtazapine 45 mg tablet 45 mg PO HS Mood 10/09/22 10/09/22 History olanzapine 20 mg tablet 20 mg PO HS Mood 10/09/22 10/09/22 History omeprazole 40 mg capsule,delayed 40 mg PO DAILY GERD 10/09/22 10/09/22 History release oxcarbazepine 300 mg tablet 300 mg PO BID Seizure Control 10/09/22 10/09/22 History sertraline 50 mg tablet 50 mg PO DAILY Mood 10/09/22 10/09/22 History trazodone 100 mg tablet 100 mg PO HS Sleep 10/09/22 10/09/22 History umeclidinium 62.5 mcg-vilanterol 1 inh inhalation DAILY Lungs 10/09/22 10/09/22 History 25 mcg/actuation powdr for inhalation (Anoro Ellipta) New Prescriptions to Start Prescriptions: Height: 1.7 m Weight: 48.988 kg Laboratory Results:: Laboratory Results - last 24 hr 10/09/22 14:40: WBC 20.6 H*, RBC 4.96, Hgb 16.4, Hct 51.1, MCV 103.2 H, MCH 33.2 H, MCHC 32.1, RDW 14.8, Plt Count 325, MPV 7.8, Neut % (Auto) 92.0 H, Lymph % (Auto) 2.6 L, [place] % (Auto) 4.6, Eos % (Auto) 0.5, Baso % (Auto) 0.3, Neut # (Auto) 19.0 H, Lymph # (Auto) 0.5 L, [place] # (Auto) 1.0, Eos # (Auto) 0.1, Baso # (Auto) 0.1, Total Counted 100, Neutrophils % (Manual) 90 H, Lymphocytes % (Manual) 6 L, Monocytes % (Manual) 4, Platelet Estimate Normal, RBC Morphology Normal 10/09/22 14:40: Sodium 138, Potassium 4.3, Chloride 97 L, Carbon Dioxide 37 H, Anion Gap 8.3, BUN 51 H, Creatinine 1.60 H, Estimated Creat Clear 38, Estimated GFR 44 L, Est GFR ( Amer) 54 L, Glucose 125 H, Calcium 9.0, Total Bilirubin 1.1, Direct Bilirubin 0.6 H, Conjugated Bilirubin 0.0, Indirect Bilirubin 0.5, Unconjugated Bilirubin 0.5, AST 45, ALT 21, Alkaline Phosphatase 112, Troponin I 0.08 H, Total Protein 8.6 H D, Albumin 4.4 10/09/22 14:40: Plasma/Serum Alcohol < 10 10/09/22 14:40: Lactate 2.0 10/09/22 14:40: Procalcitonin 1.81 10/09/22 14:40: PT 12.0, INR 1.12 H, APTT 27.3 10/09/22 14:40: Magnesium 2.3 10/09/22 14:42: Specimen Source Right radial, O2 % 100%, ABG pH 7.36, ABG pCO2 54.6 H, ABG pO2 65.3 L, ABG HCO3 30.4 H, ABG Total CO2 32.0 H, ABG O2 Saturation 92, ABG Base Excess 5.0 H, Beny Test Acceptable 10/09/22 15:07: SARS-CoV-2 (PCR) Not detected, Influenza A Untype (PCR) Not detected, Influenza Type B (PCR) Not detected 10/09/22 15:07: Chlamy pneumoniae PCR Not detected, Adenovirus (PCR) Not detected, B. pertussis DNA (PCR) Not detected, Coronavirus OC43 (PCR) Not detected, Coronavirus HKU1 (PCR) Not detected, Coronavirus 229E (PCR) Not detected, SARS-CoV-2 (PCR) Not detected, Coronavirus NL63 (PCR) Not detected, Human Metapneumovir PCR Not detected, Influenza A (H1) PCR Not detected, Influ A (H1N1/09) PCR Not detected, Influenza A (H3) PCR Not detected, Influenza Type A (PCR) Not detected, Influenza Type B (PCR) Not detected, M. pneumoniae (PCR) Not detected, Parainfluenza 1 (PCR) Not detected, Parainfluenza 2 (PCR) Not detected, Parainfluenza 3 (PCR) Not detected, Parainfluenza 4 (PCR) Not detected, RSV (PCR) Not detected, Entero/Rhino (PCR) Not detected 10/09/22 15:38: Urine Color Yellow, Urine Appearance Clear, Urine pH 7.5, Ur Specific [place] 1.015, Urine Protein 3+, Urine Glucose (UA) Negative, Urine Ketones Negative, Urine Blood 2+, Urine Nitrate Negative, Urine Bilirubin 1+ A, Urine Urobilinogen 1.0, Ur Leukocyte Esterase Negative, Urine RBC Occasional, Urine WBC None, Ur Squamous Epith Cells Occasional, Urine Bacteria None 10/09/22 20:00: Specimen Source Right radial, O2 % 3
--- NOTE | 2022-10-10 08:15 | PC.NURSE ---
RESP CARE NOTE: Pt BIPAP settings changed to 22/6 cmH2O, Rate 20 bpm, and FIO2 decreased to 35% to adjust ABG values, Dr Tejeda aware and at bedside to approve setting changes. ABG to be drawn in 1-2 hours to confirm adjustments.
--- NOTE | 2022-10-10 08:23 | EXP.ACUTE.PN ---
Subjective *Date: 10/10/22 *Time: 16:43 Interval history: Patient had worsening respiratory acidosis and hypercarbia on initial ABG this morning. Made some adjustments prior to pulmonology's arrival, so no improvement. Pulmonology took over and has made significant improvement in patient's respiratory acidosis. More alert as the day has gone on. Denies chest pain. No nausea or vomiting. Afebrile. Remains tachycardic with heart rate in the low 100s. Blood pressure within a normal range. Medical Exam Vital signs and Labs for Last 24 Hours: Vital Signs Temp Pulse Pulse Resp BP BP Pulse Ox 10/10/22 07:08 96.7 F L 103 H 24 119/71 99 10/10/22 06:00 101 H 23 124/73 98 10/10/22 06:00 90 10/10/22 04:00 103 H 99 10/10/22 05:27 102 H 10/10/22 05:27 107 H 10/10/22 05:27 10/10/22 04:00 97.8 F 10/10/22 04:00 90 26 H 115/84 97 10/10/22 00:00 110 H 10/09/22 20:01 120 H 10/09/22 22:00 96 10/10/22 01:45 10/10/22 02:00 102 H 24 114/74 97 10/10/22 02:00 10/10/22 00:00 97.5 F L 10/09/22 23:20 98 H 10/09/22 23:20 101 H 10/10/22 00:00 94 H 28 H 121/79 94 L 10/09/22 20:00 104 H 97 10/09/22 22:00 97 H 24 97/66 L 97 10/09/22 20:50 10/09/22 21:02 98.9 F 10/09/22 20:53 98.9 F 10/09/22 20:30 112 H 32 H 127/79 95 10/09/22 19:24 98.7 F 41 H 117/73 89 L 10/09/22 18:30 124 H 28 H 134/82 90 L 10/09/22 18:00 120 H 28 H 117/71 89 L 10/09/22 17:30 130 H 28 H 126/84 88 L 10/09/22 18:45 99 F 120 H 21 117/63 10/09/22 17:00 123 H 24 123/76 92 L 10/09/22 16:51 99.6 F 125 H 22 90 L 10/09/22 16:30 132 H 111/71 94 L 10/09/22 16:00 131 H 120/72 97 10/09/22 14:41 22 64 L 10/09/22 15:30 143 H 20 132/72 97 10/09/22 16:38 82 L 10/09/22 14:41 103.6 F H 154 H 22 147/83 H 62 L FiO2 10/10/22 07:08 10/10/22 06:00 10/10/22 06:00 10/10/22 04:00 10/10/22 05:27 10/10/22 05:27 10/10/22 05:27 50 10/10/22 04:00 10/10/22 04:00 10/10/22 00:00 10/09/22 20:01 10/09/22 22:00 80 10/10/22 01:45 50 10/10/22 02:00 10/10/22 02:00 50 10/10/22 00:00 10/09/22 23:20 10/09/22 23:20 10/10/22 00:00 10/09/22 20:00 10/09/22 22:00 10/09/22 20:50 80 10/09/22 21:02 10/09/22 20:53 10/09/22 20:30 10/09/22 19:24 10/09/22 18:30 10/09/22 18:00 10/09/22 17:30 10/09/22 18:45 10/09/22 17:00 10/09/22 16:51 10/09/22 16:30 10/09/22 16:00 10/09/22 14:41 10/09/22 15:30 10/09/22 16:38 50 10/09/22 14:41 Intake and Output 10/09/22 10/10/22 10/10/22 23:59 07:59 15:59 Intake Total 2200 / 2200 0 / 0 Output Total 1650 / 1650 Balance 2200 / 2200 -1650 / -1650 Intake: Intake, Oral Amount 200 / 200 0 / 0 Intake, Total IV Amount 1999 Output: Output, Urine Amount 165 / 165 Other: Number of Voids 1 Number of Unmeasured Voids 0 Weight 49.073 kg 48.988 kg 48.988 kg Patient Weight 10/10/22 23:59 Weight 48.988 kg Laboratory Results - last 24 hr 10/09/22 14:40: WBC 20.6 H*, RBC 4.96, Hgb 16.4, Hct 51.1, MCV 103.2 H, MCH 33.2 H, MCHC 32.1, RDW 14.8, Plt Count 325, MPV 7.8, Neut % (Auto) 92.0 H, Lymph % (Auto) 2.6 L, [place] % (Auto) 4.6, Eos % (Auto) 0.5, Baso % (Auto) 0.3, Neut # (Auto) 19.0 H, Lymph # (Auto) 0.5 L, [place] # (Auto) 1.0, Eos # (Auto) 0.1, Baso # (Auto) 0.1, Total Counted 100, Neutrophils % (Manual) 90 H, Lymphocytes % (Manual) 6 L, Monocytes % (Manual) 4, Platelet Estimate Normal, RBC Morphology Normal 10/09/22 14:40: Sodium 138, Potassium 4.3, Chloride 97 L, Carbon Dioxide 37 H, Anion Gap 8.3, BUN 51 H, Creatinine 1.60 H, Estimated Creat Clear 38, Estimated GFR 44 L, Est GFR ( Amer) 54 L, Glucose 125 H, Calcium 9.0, Total Bilirubin 1.1, Direct Bilirubin 0.6 H
[2022-10-10 08:26] LABS: ABG Base Excess 1.2 mmol/L (-2.4-2.3); ABG HCO3 29.5 mmhg (22.0-26.0); ABG Oxygen Saturation 95 % (90-100); ABG PO2 93.2 mmhg (80-100); ABG TCO2 31.9 mmhg (23-27)
[2022-10-10 08:27] LABS: Allen's Test acceptable; Oxygen 50 %; Pressure Support BIPAP 18/6; Source Right Radial; Vent Rate 20
--- NOTE | 2022-10-10 08:27 | HMH.PHAINT1 ---
Pharmacy Intervention Comments: Medication reconciliation completed using MAR from nursing facility
[2022-10-10 08:28] LABS: ABG PH 7.18 mmol/L (7.35-7.45)
--- NOTE | 2022-10-10 08:43 | XR_ITS ---
FINAL REPORT CLINICAL HISTORY: worsening ABG FINDINGS: A portable view of the chest was obtained. Comparison is made to a prior exam dated 10/09/2022. The heart and mediastinum are stable. Increased interstitial markings is unchanged. There has been slight improvement in peripheral right lung opacity but slight worsening of medial basilar opacities bilaterally. There is no pleural effusion or pneumothorax. IMPRESSION: Slight improvement in peripheral right lung opacity but slight worsening of medial basilar opacities bilaterally, pneumonia not excluded. Recommend continued follow-up. Reviewed, Interpreted and Dictated by Aimee Mcnamara MD Transcribed by Mariajose Casillas Authenticated and [facility]
--- NOTE | 2022-10-10 09:29 | EXP.PULM.CON ---
History of Present Illness History of present illness: Much of the history is obtained from chart review and primary team. Patient altered and barely responding to verbal commands. Mr. Abrams is a 62-year-old male prior history of tach ongoing tobacco abuse, schizophrenia hypertension CAD presented to the hospital with 3 to 4-day history of fevers and worsening respiratory distress upon admission patient found to be in hypoxic respiratory failure, altered mentation needing high flow nasal cannula and BiPAP, pulmonary was called for further evaluation. [facility] Disclaimer: The information contained in this section may have been updated after the patient was seen, as this information can be updated by other users. Medical History Abnormal stress test Acute respiratory failure with hypoxia Angina, class IV Anxiety Chest pain Dyspnea Palpitations Pneumonia due to COVID-19 virus Tobacco dependence syndrome Family History Other Poor historian Social History Smoking Status: Current every day smoker tobacco type: cigarettes alcohol intake: former substance use type: denies use current occupational status: disabled Travel in the last 8 weeks: None household members: other housing: assisted living facility lives independently: Yes marital status: single service: No Review of Systems Review of Systems Review of systems:: unable to obtain Pulmonology Exam Inpatient Vital signs and Labs for Last 24 Hours: Temp Pulse Resp BP Pulse Ox FiO2 96.7 F L 103 H 24 119/71 90 L 50 10/10/22 07:08 10/10/22 08:00 10/10/22 07:08 10/10/22 07:08 10/10/22 08:00 10/10/22 08:00 Laboratory Results - last 24 hr 10/09/22 14:40: WBC 20.6 H*, RBC 4.96, Hgb 16.4, Hct 51.1, MCV 103.2 H, MCH 33.2 H, MCHC 32.1, RDW 14.8, Plt Count 325, MPV 7.8, Neut % (Auto) 92.0 H, Lymph % (Auto) 2.6 L, [place] % (Auto) 4.6, Eos % (Auto) 0.5, Baso % (Auto) 0.3, Neut # (Auto) 19.0 H, Lymph # (Auto) 0.5 L, [place] # (Auto) 1.0, Eos # (Auto) 0.1, Baso # (Auto) 0.1, Total Counted 100, Neutrophils % (Manual) 90 H, Lymphocytes % (Manual) 6 L, Monocytes % (Manual) 4, Platelet Estimate Normal, RBC Morphology Normal 10/09/22 14:40: Sodium 138, Potassium 4.3, Chloride 97 L, Carbon Dioxide 37 H, Anion Gap 8.3, BUN 51 H, Creatinine 1.60 H, Estimated Creat Clear 38, Estimated GFR 44 L, Est GFR ( Amer) 54 L, Glucose 125 H, Calcium 9.0, Total Bilirubin 1.1, Direct Bilirubin 0.6 H, Conjugated Bilirubin 0.0, Indirect Bilirubin 0.5, Unconjugated Bilirubin 0.5, AST 45, ALT 21, Alkaline Phosphatase 112, Troponin I 0.08 H, Total Protein 8.6 H D, Albumin 4.4 10/09/22 14:40: Plasma/Serum Alcohol < 10 10/09/22 14:40: Lactate 2.0 10/09/22 14:40: Procalcitonin 1.81 10/09/22 14:40: PT 12.0, INR 1.12 H, APTT 27.3 10/09/22 14:40: Magnesium 2.3 10/09/22 14:42: Specimen Source Right radial, O2 % 100%, ABG pH 7.36, ABG pCO2 54.6 H, ABG pO2 65.3 L, ABG HCO3 30.4 H, ABG Total CO2 32.0 H, ABG O2 Saturation 92, ABG Base Excess 5.0 H, Beny Test Acceptable 10/09/22 15:07: SARS-CoV-2 (PCR) Not detected, Influenza A Untype (PCR) Not detected, Influenza Type B (PCR) Not detected 10/09/22 15:07: Chlamy pneumoniae PCR Not detected, Adenovirus (PCR) Not detected, B. pertussis DNA (PCR) Not detected, Coronavirus OC43 (PCR) Not detected, Coronavirus HKU1 (PCR) Not detected, Coronavirus 229E (PCR) Not detected, SARS-CoV-2 (PCR) Not detected, Coronavirus NL63 (PCR) Not detected, Human Metapneumovir PCR Not detected, Influenza A (H1) PCR Not detected, Influ A (H1N1/09) PCR Not detected, Influenza A (H3) PCR Not detected, Influenza Type A (PCR) Not detected, Influenza Type B (PCR) Not detected, M. pneumoniae (PCR) Not detected, Parainfluenza 1 (PCR) Not detected, Parainfluenza 2 (PCR) Not detected, Parainfluenza 3 (PCR) Not detected, Parainflue
[2022-10-10 09:36] LABS: ABG Base Excess 0.7 mmol/L (-2.4-2.3); ABG HCO3 29.2 mmhg (22.0-26.0); ABG Oxygen Saturation 91 % (90-100); ABG PO2 70.6 mmhg (80-100); ABG TCO2 31.7 mmhg (23-27)
[2022-10-10 09:38] LABS: Allen's Test ACCEPTABLE; Oxygen 35 %; Pressure Support BIPAP 22/6; Vent Rate 22
[2022-10-10 09:39] LABS: Source Right Radial
[2022-10-10 09:41] LABS: ABG PH 7.17 mmol/L (7.35-7.45)
[2022-10-10 09:42] LABS: ABG PCO2 81.5 mmhg (35.0-45.0)
--- NOTE | 2022-10-10 10:34 | EXP.CARD.CON ---
History of Present Illness History of Present Illness Consult date: 10/10/22 Requesting physician: Ford Tejeda Chief complaint: elevated troponin, alteres mental status History of present illness: This is a 62-year-old white gentleman who presented to the emergency department from [facility] with a 3 to 4-day history of fevers. The patient was lethargic and unable to answer questions when he got to the emergency department. Most of the patient's history and review of systems is obtained from chart review and the hospitalist team. The patient is still pretty altered this morning and is not really following any of my commands. He does sometimes answer simple yes and no questions but he is very lethargic and I am not sure that his review of systems is reliable. The patient does have a history of tobacco use, schizophrenia, hypertension and coronary artery disease. He denies chest pain or pressure this morning. He denies shortness of breath. Those are the only questions that he answers by shaking his head no. The rest of my questions he does not answer are acknowledged that I am talking to him and he does not respond to any of my other verbal commands. On admission the patient was found to be in hypoxic respiratory failure with altered mentation. He was put on high flow oxygen and then subsequently ended up on BiPAP. He remains on BiPAP this morning. He appears to be in no distress this morning. [facility] Disclaimer: The information contained in this section may have been updated after the patient was seen, as this information can be updated by other users. Medical History Abnormal stress test Acute respiratory failure with hypoxia Acute respiratory failure with hypoxia and hypercapnia JASS (acute kidney injury) Angina, class IV Anxiety Chest pain COPD (chronic obstructive pulmonary disease) with acute bronchitis Coronary artery disease Dyspnea Elevated brain natriuretic peptide (BNP) level Elevated d-dimer Elevated troponin Hypertension NSTEMI (non-ST elevated myocardial infarction) Palpitations Pneumonia Pneumonia due to COVID-19 virus Respiratory acidosis Schizophrenia Sepsis Tobacco dependence syndrome Family History Other Poor historian Social History Smoking Status: Current every day smoker tobacco type: cigarettes alcohol intake: former substance use type: denies use current occupational status: disabled Travel in the last 8 weeks: None household members: other housing: assisted living facility lives independently: Yes marital status: single service: No Review of Systems Review of Systems Review of systems:: unable to obtain Constitutional Constitutional: Reports fever(s) *Cardiovascular Cardiovascular: Denies chest pain and Denies dyspnea *Respiratory Respiratory: Denies dyspnea Exam Data for Last 24 hours Vital signs and Labs for Last 24 Hours: Temp Pulse Resp BP Pulse Ox FiO2 97.3 F L 109 H 26 H 123/74 96 50 10/10/22 10:00 10/10/22 10:00 10/10/22 10:00 10/10/22 10:00 10/10/22 10:00 10/10/22 08:00 Laboratory Results - last 24 hr 10/09/22 14:40: WBC 20.6 H*, RBC 4.96, Hgb 16.4, Hct 51.1, MCV 103.2 H, MCH 33.2 H, MCHC 32.1, RDW 14.8, Plt Count 325, MPV 7.8, Neut % (Auto) 92.0 H, Lymph % (Auto) 2.6 L, [place] % (Auto) 4.6, Eos % (Auto) 0.5, Baso % (Auto) 0.3, Neut # (Auto) 19.0 H, Lymph # (Auto) 0.5 L, [place] # (Auto) 1.0, Eos # (Auto) 0.1, Baso # (Auto) 0.1, Total Counted 100, Neutrophils % (Manual) 90 H, Lymphocytes % (Manual) 6 L, Monocytes % (Manual) 4, Platelet Estimate Normal, RBC Morphology Normal 10/09/22 14:40: Sodium 138, Potassium 4.3, Chloride 97 L, Carbon Dioxide 37 H, Anion Gap 8.3, BUN 51 H, Creatinine 1.60 H, Estimated Creat Clear 38, Estimated GFR 44 L, Est GFR ( Amer) 54 L, Glucose 125 H, John
--- NOTE | 2022-10-10 10:43 | CA_ITS ---
APPROVED REPORT EXAM: Comprehensive 2D, Doppler, and color-flow Echocardiogram Snagger: Tierra Osborne CRT Ht: 5 ft 6 in Wt: 108lbs BSA: 1.54 BP: 123/74 mmHg Indications: COPD, Palpitations, CAD, Hypertension/HDD, pneumonia, bipap, smoker, schizophrenia 2D Dimensions LVOT 1.89 cm (M/F) 1.5-2.5 LA Volume 17.40 mL LA Volume Index 11.30 mL/m2 (M/F) 16-34 M-Mode Dimensions RVDd 2.24 cm (0.9-2.6) LA Diam 2.14 cm (1.9-4.0) LVDd 3.64 cm (3.5-5.7) Ao Diam 3.78 cm (2.0-3.7) LVDs 2.76 cm (3.5-5.7) IVSd 1.33 cm (0.6-1.1) PWd 0.66 cm (0.6-1.1) EF (Teich) 49.00% FS 24.20% EDV (Teich) 55.90 mL TAPSE 1.48 (<1.7) ESV (Teich) 28.50 mL LV Diastology E Decel Time 213.00 (160-240 msec) E/A Ratio 0.70 MED E' 7.90 (< 7 cm/sec) MED A' 15.00 cm/s E'/MED E' Ratio 5.78 (>14) LAT E' 9.20 (<10 cm/sec) LAT A' 12.10 cm/s E/LAT E' Ratio 4.97 (>14) Aortic Valve AO Peak GR. 3.40 mmHg Mitral Valve MV E Max Pj. 46.00 (40-130 cm/s) MV A Velocity 65.00 (40-130 cm/s) E/A Ratio 0.70 MV Decel. Time 213.00 (160-240 ms) MV PHT 62.00 ms Pulmonary Valve PV Peak Velocity 76.00 (50-150 cm/s) Tricuspid Valve TR P. Velocity 283.00 cm/s Left Ventricle Left atrium is normal size, left ventricle is normal size, estimated ejection fraction 55% with no regional wall motion abnormality, Doppler evidence of impaired LV relaxation seen. Right Ventricle Right atrium and right ventricle are normal size and contractility. Aortic Valve Aortic valve is grossly normal there is no aortic stenosis aortic insufficiency Mitral Valve Mitral valve grossly normal there is trace mitral regurgitation. Tricuspid Valve Tricuspid valve grossly normal, there is trace tricuspid regurgitation, tricuspid regurgitation jet velocity is inadequate for calculation of the right ventricular systolic pressure. Pulmonic Valve Pulmonic valve is poorly visualized. Great Vessels Aortic root is normal size. Inferior vena cava normal size with normal inspiratory collapse. Pericardium No significant pericardial effusion noted. Conclusion 1. Normal left ventricular size preserved left ventricular systolic function, estimated ejection fraction 55% with no regional wall motion abnormality, Doppler evidence of impaired relaxation seen. 2. Trace mitral and tricuspid regurgitation. 3. No significant pericardial effusion noted. 4. Inferior vena cava is normal size with normal inspiratory collapse. Electronically signed by : Sidney Bernard MD 10/10/2022 18:50:51
[2022-10-10 12:01] LABS: ABG Base Excess 3.1 mmol/L (-2.4-2.3); ABG HCO3 30.4 mmhg (22.0-26.0); ABG Oxygen Saturation 93 % (90-100); ABG PH 7.25 mmol/L (7.35-7.45); ABG PO2 72.7 mmhg (80-100); ABG TCO2 32.6 mmhg (23-27)
[2022-10-10 12:06] LABS: Allen's Test ACCEPTABLE; Oxygen 35 %; Pressure Support BIPAP 22/8; Source Right Radial; Vent Rate 24
[2022-10-10 12:09] LABS: ABG PCO2 71.2 mmhg (35.0-45.0)
--- NOTE | 2022-10-10 13:10 | XR_ITS ---
FINAL REPORT CLINICAL HISTORY: Hypoxia FINDINGS: A portable view of the chest was obtained. Comparison is made to a prior exam dated 10/10/2022. Cardiac and mediastinal silhouettes are within normal limits. Interstitial opacities appears slightly improved. There is no new infiltrate, pleural effusion or pneumothorax. IMPRESSION: Slight improvement in interstitial opacities.. Reviewed, Interpreted and Dictated by Aimee Mcnamara MD Transcribed by Mariajose Casillas Authenticated and [facility]
[2022-10-10 14:22] LABS: ABG Base Excess 2.9 mmol/L (-2.4-2.3); ABG HCO3 29.7 mmhg (22.0-26.0); ABG Oxygen Saturation 92 % (90-100); ABG PH 7.28 mmol/L (7.35-7.45); ABG PO2 65.6 mmhg (80-100); ABG TCO2 31.7 mmhg (23-27)
[2022-10-10 14:28] LABS: Allen's Test ACCEPTABLE; Oxygen 35 %; Source Right Radial; Vent Rate 24
[2022-10-10 14:29] LABS: ABG PCO2 65.4 mmhg (35.0-45.0)
--- NOTE | 2022-10-10 17:00 | PC.NURSE ---
pt settings on bipap have been adjusted several times this shift by Tenant Relations Coordinator. pt has tolerated well. lung sounds contain coarse wheezes/rhonchi. bowel sounds active in all quads. nad. pt has nelson cath draining clear dark yellow urine. skin intact. pt is alert to self and time. pt frequently asks for something to drink, pt is npo per MD at this time r/t potential aspiration. pt mouth swabbed q2 and prn. pt q2 turn.
[2022-10-11] VITALS (26 sets, daily range): BP systolic 95–153; BP diastolic 50–90; PULSE 84–116; RESP 18–30; TEMP 36.4–36.8; O2SAT 90–100; BMI 16.9
[2022-10-11 06:34] LABS: Basophils % 0.3 % (0.1-2.0); Eosinophils % 0.2 % (0.1-12.0); Hemoglobin 12.4 g/dL (14.1-18.0); Lymphocytes % 6.3 % (10-50); Mean Corpuscular HGB Conc 30.3 g/dL (31.8-35.4); Mean Corpuscular Hemoglobin 32.6 pg (27.0-31.2); Mean Corpuscular Volume 107.7 fl (80-94); Mean Platelet Volume 7.8 fl (7.4-10.4); Monocytes # 0.8 K/mm3 (0.1-1.0); Monocytes % 4.9 % (1.7-9.3); Neutrophils # 13.4 K/mm3 (1.8-7.8); Neutrophils % 88.3 % (37.0-80.0); Platelet Count 301 K/mm3 (142-424); Red Blood Count 3.81 M/mm3 (4.60-6.20); Red Cell Distribution Width 15.2 % (11.5-17.5); White Blood Count 15.1 K/mm3 (4.8-10.8)
[2022-10-11 06:36] LABS: MANUAL DIFFERENTIAL MANUAL DIFFERENTIAL (MANUAL DIFF)
[2022-10-11 06:40] LABS: Blood Urea Nitrogen 36 mg/dl (9-20); Calcium 8.2 mg/dl (8.4-10.2); Carbon Dioxide 30 mmol/L (22.0-30.0); Chloride 107 mmol/L (98-107); Chol/HDL Ratio 5.6 (1-3.5); Cholesterol 141 mg/dl (140-200); Creatinine Clearance Estimated 60 mL/min (50-200); Estimated Glomerular Filt Rate 86 ml/min (>60); GFR (African American) 104 ML/MIN (>60); Glucose 92 mg/dl (74-100); HDL Cholesterol 25 mg/dl (40-60); Sodium 135 mmol/L (136-145); Triglycerides 186 mg/dl (30-150); VLDL Cholesterol 37 mg/dL (0-40)
[2022-10-11 06:52] LABS: Direct LDL Cholesterol 64.86 mg/dL (100-129)
[2022-10-11 07:59] LABS: Lymphocytes % 3 % (10-50); Monocytes % 4 % (2-9); Neutrophils % 93 % (42-76); Platelet Estimate Normal; RBC Morphology Normal; Total Cells Counted 100
--- NOTE | 2022-10-11 09:20 | EXP.PULM.PN ---
Subjective *Date: 10/11/22 *Time: 09:59 Interval history: No acute respiratory vents overnight. Weaned off BiPAP this morning. Denies any new respiratory complaints. Complains of cough. Pulmonology Exam Inpatient Vital signs and Labs for Last 24 Hours: Temp Pulse Resp BP Pulse Ox FiO2 97.6 F 116 H 20 127/90 99 35 10/11/22 07:36 10/11/22 08:15 10/11/22 08:00 10/11/22 08:00 10/11/22 08:00 10/11/22 05:45 Laboratory Results - last 24 hr 10/10/22 09:30: Specimen Source Right radial, O2 % 35, ABG pH 7.17 L*, ABG pCO2 81.5 H, ABG pO2 70.6 L, ABG HCO3 29.2 H, ABG Total CO2 31.7 H, ABG O2 Saturation 91, ABG Base Excess 0.7, Beny Test Acceptable, Vent Rate 10/10/22 12:00: Specimen Source Right radial, O2 % 35, ABG pH 7.25 L, ABG pCO2 71.2 H, ABG pO2 72.7 L, ABG HCO3 30.4 H, ABG Total CO2 32.6 H, ABG O2 Saturation 93, ABG Base Excess 3.1 H, Beny Test Acceptable, Vent Rate 10/10/22 14:19: Specimen Source Right radial, O2 % 35, ABG pH 7.28 L, ABG pCO2 65.4 H, ABG pO2 65.6 L, ABG HCO3 29.7 H, ABG Total CO2 31.7 H, ABG O2 Saturation 92, ABG Base Excess 2.9 H, Beny Test Acceptable, Vent Rate 10/11/22 05:40: WBC 15.1 H, RBC 3.81 L, Hgb 12.4 L, Hct 41.0 L, MCV 107.7 H, MCH 32.6 H, MCHC 30.3 L, RDW 15.2, Plt Count 301, MPV 7.8, Neut % (Auto) 88.3 H, Lymph % (Auto) 6.3 L, [place] % (Auto) 4.9, Eos % (Auto) 0.2, Baso % (Auto) 0.3, Neut # (Auto) 13.4 H, Lymph # (Auto) 1.0, [place] # (Auto) 0.8, Eos # (Auto) 0.0, Baso # (Auto) 0.0, Total Counted 100, Neutrophils % (Manual) 93 H, Lymphocytes % (Manual) 3 L, Monocytes % (Manual) 4, Platelet Estimate Normal, RBC Morphology Normal 10/11/22 05:40: Sodium 135 L, Potassium 4.0, Chloride 107, Carbon Dioxide 30, Anion Gap 2.0 L, BUN 36 H, Creatinine 0.90, Estimated Creat Clear 60, Estimated GFR 86, Est GFR ( Amer) 104, Glucose 92, Calcium 8.2 L, Triglycerides 186 H, Cholesterol 141, LDL Cholesterol Direct 64.86 L, VLDL Cholesterol 37, HDL Cholesterol 25 L, Cholesterol/HDL Ratio 5.6 H I & O for Labs for Last 24 Hours: Intake & Output 10/08/22 10/09/22 10/10/22 10/11/22 23:59 23:59 23:59 23:59 Intake Total 2200 / 2200 975 / 975 100 / 100 Output Total 2500 / 2700 200 / 200 Balance 2200 / 2200 -1525 / -1725 -100 / -100 Weight 108 lb 3 oz 107 lb 12.897 oz 107 lb 12.897 oz Constitutional: Present moderate distress Head: Present normocephalic and atraumatic ENT: Present normal exam, normal oropharynx and mucous membranes moist Neck: Present normal inspection and full ROM Respiratory: Present prolonged expiratory phase, respiratory distress and wheezes; Absent diminished air movement or able to speak in complete sentences Cardiac: Present S1/S2, Tachycardia and radial pulses present GI: Present soft and distention; Absent tenderness or guarding Skin: Present intact; Absent cyanosis or jaundice Neuro: Present alert, awake and oriented x 3 Extremities: Present normal inspection; Absent clubbing or cyanosis Psychiatric: Present normal affect and cooperative Assessment and Plan *Assessment and plan (1) Acute respiratory failure with hypoxia and hypercapnia: Status: Acute Category: Medical Code(s): J96.01 - Acute respiratory failure with hypoxia; J96.02 - Acute respiratory failure with hypercapnia (2) Pneumonia: Status: Acute Category: Medical Code(s): J18.9 - Pneumonia, unspecified organism Plan Mr. Abrams is a 62-year-old male prior history of tach ongoing tobacco abuse, schizophrenia hypertension CAD presented to the hospital with 3 to 4-day history of fevers and worsening respiratory distress upon admission patient found to be in hypoxic respiratory failure, altered mentation eventually needing high flow nasal cannula and BiPAP and pulmonary was called for further evaluation. #Acute hypoxic and hypercarbic respiratory failure: #Pneumonia History of tobacco abuse. Presented with worsening respiratory distress and altered mentation. Initial pH was 7.36 can
--- NOTE | 2022-10-11 10:28 | DIET.NUTRFU ---
Addendum entered by Kareen Mckenna RD, LD 10/11/22 15:24: SPECIAL LOAN OFFICER evaluated patient, patient is edentulous and c/o sore gums. Therefore patient requested a puree did not want to trial solids. SPECIAL LOAN OFFICER did see a risk for aspiration with liquid intake, recommends thin liquids. Kitchen aware of change in diet. Will monitor po intake to determine if meeting nutritional needs Original Note: Patient has shown some improvement over night, now on 4 liters during day. Pulmonary ordered speech eval for oral diet. Will follow their recommendations.
[2022-10-11 11:35] LABS: Magnesium 2.8 mg/dl (1.6-2.3)
--- NOTE | 2022-10-11 12:47 | PC.NURSE ---
LATE ENTRY: 929-PT OFF BIPAP AT THIS TIME. REMAINS ON NC, 3.5L AT THIS TIME. TOLERATING WELL. BEDSIDE SWALLOW EVAL AND PT/OT ORDERED. PT HAS LONG COUGHING SPELLS AFTER SIPS OF WATER.
[2022-10-11 12:57] LABS: ABG Base Excess 2.9 mmol/L (-2.4-2.3); ABG HCO3 28.4 mmhg (22.0-26.0); ABG Oxygen Saturation 90 % (90-100); ABG PH 7.36 mmol/L (7.35-7.45); ABG PO2 58.1 mmhg (80-100)
[2022-10-11 12:59] LABS: Allen's Test ACCEPTABLE; Oxygen 3.5 LPM %; Source Right Radial
--- NOTE | 2022-10-11 13:07 | PC.NURSE ---
ABG WNL. OKAY TO WEAR NASAL CANULA, EVEN AT NIGHT TIME, UNLESS MENTAL STATUS CHANGES. IF SO, ORDER ABG, AND THEN SEE ABOUT REPLACING BIPAP.
--- NOTE | 2022-10-11 13:20 | PC.NURSE ---
PT/OT AT BEDSIDE GETTING PT UP. TOLERATING WELL.
--- NOTE | 2022-10-11 13:33 | PC.NURSE ---
PT TOLERATED SWALLOW EVAL WELL. PT OKAY TO DRINK AND HAS REQUESTED A PUREED DIET DUE TO DENTURES BEING AT HOME AND HE SAYS IT HURTS HIS GUMS TO CHEW WITHOUT THEM.
--- NOTE | 2022-10-11 13:53 | HMH.OTEV ---
OT Inpatient Evaluation Rehab OT IP Evaluation Start: 10/11/22 09:39 Freq: ONCE Status: Active Protocol: [facility]11[facility]22 13[facility]Rec: 10/11/22 13:53 [facility] [id number]) Rehab OT IP Assessment Subjective History Pt oriented x 3 on arrival. Pt agreeable to engage in therapy evaluation. Pt was admitted on 10/09/22 due to B/L PNA and Respiratory failure. Prior to being in the hospital, pt lived at [facility]. Pt claims he was independent with all ADLs such as dressing, bathing, and feeding. He was dependent upon staff to complete all IADLs. Pt did not require any type of AE during ambulation/functional transfers. Pt has a past medical history of: Abnormal stress test Acute respiratory failure with hypoxia Acute respiratory failure with hypoxia and hypercapnia JASS (acute kidney injury) Angina, class IV Anxiety Chest pain COPD (chronic obstructive pulmonary disease) with acute bronchitis Coronary artery disease Dyspnea Elevated brain natriuretic peptide (BNP) level Elevated d-dimer Elevated troponin Hypertension NSTEMI (non-ST elevated myocardial infarction) Palpitations Pneumonia Pneumonia due to COVID-19 virus Respiratory acidosis Schizophrenia Sepsis Tobacco dependence syndrome Subjective I need to look out this window for my mom. Objective Patient Orientation Person,Place,Birthday
--- NOTE | 2022-10-11 13:59 | HMH.PTEV ---
Physical Therapy Evaluation Rehab PT IP Evaluation Start: 10/11/22 09:39 Freq: .once Status: Active Protocol: Document 10/11/22 13:55 VIRGIL (Rec: 10/11/22 13:58 [email or web address] [id number]) Subjective/History History History 62 yowm adm to [facility] with PNA and acute resp failure [facility]. He reports he is generally independent with all mobility without AD. Subjective Subjective He currently c/o nelson cath bothering him, but otherwise feels better. Rehab PT IP Eval Objective Appearance Patient Behavior Appropriate Patient Orientation Person,Place,Time Difficulty following instructions none Speech Pattern Clear Ambulation Patient Able to Ambulate Yes Ambulation Observation IP General Gait Pattern Observation Shuffling Step Ambulation Distance (feet) 25 Ambulation Assistive Device None Ambulation Ability Supervision/Stand by Balance Ability to Arise Able, uses arms to help Sitting Balance Steady, safe Standing Balance Steady, wide stance Dynamic Sitting Balance Ability Good Dynamic Standing Balance Ability Good Transfers Bed Transfer Ability Supervision/Stand by Chair Transfer Ability Supervision/Stand by Sit to Stand Bed Transfer Ability Supervision/Stand by Sit to Stand Chair Transfer Ability Supervision/Stand by ROM All Extremities PT ROM Status WFL MMT All Extremities PT MMT WFL Rehab PT IP prob,goals,plan Problems Date of Evaluation: 10/11/22 Discharge Plan PT Discharge Plan Pt currently appears to be at baseline for all transfers and ambulation. He is appropriate to return to prior living situation once medically stable for d/c. G -code Required No Eval Complexity Eval Charge Codes 08170 - Moderate Complexity PHYSICIAN CERTIFICATION: I certify the specified therapy services for Dov Abrams are required, authorized, and reviewed every 30 days.
--- NOTE | 2022-10-11 14:32 | SW/DCPLANNER ---
Addendum entered by [facility] 10/17/22 08:48: Patient will discharge to [place] today SNF level of care. COVID swab has been ordered prior to discharge. Addendum entered by [facility] 10/16/22 14:12: Elli hollins/ [facility] stated that she can accept this patient SNF level of care tomorrow. I have updated Pili hollins/ Akash Robin. Addendum entered by [facility] 10/16/22 13:22: Due to patient's O2 level dropping I have faxed patient information to Elli hollins/ [facility]. Patient is medically stable for discharge. I have updated Pili hollins/ Akash Robin. Addendum entered by [facility] 10/16/22 10:19: The plan for this patient is to return to [facility] today. I have called and updated Kim. Alejandre was onsite this AM to evaluate this patient. Original Note: This patient currently resides at [facility]. I called and followed up with Magaly at [facility] regarding this patient. PT evaluated patient and stated that physically he could [facility] if able to wean off of O2. I will continue to follow up with MD prudencio and [facility].
--- NOTE | 2022-10-11 14:48 | PC.NURSE ---
PT UP TO BEDSIDE COMMODE, TOLERATED WELL. HAD LARGE BM. ADEQUATE U/O THROUGH F/.C.
--- NOTE | 2022-10-11 15:05 | HMH.SLDYSPHA ---
Speech & Language Evaluation Speech/Language Dysphagia Evaluation Start: 10/11/22 14:05 Freq: ONCE Status: Active Protocol: Document 10/11/22 14:05 VENUS (Rec: 10/11/22 15:05 VENUS [id number]) Dysphagia Assess/Goals/Plan Assessment Date of Evaluation: 10/11/22 Evaluation Type Initial Certification Assessment/Problems Pt NPO pending TUBE BACKER evaluation given concerns for aspiration. Does Patient Qualify for Service No Qualify/Failure Comment Based on the results of the clinical swallow evaluation, no further skilled ST services are warranted at this time. Recommendations PHYSICIAN CERTIFICATION: The specified therapy services are required, authorized, and reviewed every 30 days. Diet Recommendations Pt requesting puree for comfort. Liquid Type Recommendations Normal/Thin SL Swallow Guidelines Alt bite w/sip thru meal,Eat at slow rate Dysphagia Swallow Precautions/Strategies Sitting Upright (90 deg),Small Bites and Sips,Alternate Liquids/Solids Plan Pt/Guardian verbally ack understanding Yes of dx/prognosis/goals Pt/Guardian verbally ack understanding Yes of/consent to tx prog G -code Required No Education Instructions provided Evaluation results and recommendations discussed with pt, care management, and nursing, who expressed understanding. Pt/Caregiver able to recall information Able to recall/restate Reinforcement needed No Speech & Language HPI History Present Illness Description of Patient Problem Mr. Abrams is a 62 y.o. male presenting to [facility] ED with a history of fevers for 3-4 days . He came from [facility], a local assisted living facility . He was admitted with sepsis, acute hypoxia, hypercapnic respiratory failure, acute respiratory acidosis, pneumonia, NSTEMI, and JASS. PMH is significant for chronic tobacco use, COVID pneumonia, history of admissions for acute respiratory failure, schizophrenia, HTN, and CAD. He was weaned off the bipap this weekend and is currently
--- NOTE | 2022-10-11 15:57 | PC.NURSE ---
PT REMAINS ALERT TO PERSON AND AT TIMES PLACE. PT HAS HAD INTERMITTENT DRY COUGH, STILL UNABLE TO PRODUCE SPUTUM. TOLERATING 3.5L NC AT THIS TIME. PT HAS BEEN UP TO BEDSIDE COMMODE, IS X1 ASSIST. F/C DRAINING DARK YELLOW URINE. O2 SAT GOAL 90-95%. HAS HAD A BIG APPETITE, HAS EATEN MULTIPLE PUDDINGS AND APPLESAUCE. NO NEEDS OR C/O NOTED, VSS.
[2022-10-11 18:12] LABS: ABG Base Excess 2.3 mmol/L (-2.4-2.3); ABG HCO3 27.5 mmhg (22.0-26.0); ABG Oxygen Saturation 89 % (90-100); ABG PCO2 48.5 mmhg (35.0-45.0); ABG PH 7.37 mmol/L (7.35-7.45); ABG PO2 56.4 mmhg (80-100); Allen's Test Acceptable; Oxygen 3.5 LPM %; Source Right Radial
--- NOTE | 2022-10-11 18:14 | EXP.PN ---
Subjective *Date: 10/11/22 *Time: 18:14 Interval history: Date of service October 11, 2022 The patient reports improved dyspnea. Nursing staff report that he remains afebrile with improved heart rates and stable blood pressures. He is saturating appropriately on 3.5 L of oxygen via nasal cannula. Pulmonology continues to follow with cardiology has signed off. Exam Data for Last 24 hours Vital signs and Labs for Last 24 Hours: Temp Pulse Resp BP Pulse Ox FiO2 98.3 F 112 H 21 111/70 96 35 10/11/22 15:27 10/11/22 16:00 10/11/22 16:00 10/11/22 16:00 10/11/22 16:00 10/11/22 05:45 Laboratory Results - last 24 hr 10/11/22 05:40: WBC 15.1 H, RBC 3.81 L, Hgb 12.4 L, Hct 41.0 L, MCV 107.7 H, MCH 32.6 H, MCHC 30.3 L, RDW 15.2, Plt Count 301, MPV 7.8, Neut % (Auto) 88.3 H, Lymph % (Auto) 6.3 L, [place] % (Auto) 4.9, Eos % (Auto) 0.2, Baso % (Auto) 0.3, Neut # (Auto) 13.4 H, Lymph # (Auto) 1.0, [place] # (Auto) 0.8, Eos # (Auto) 0.0, Baso # (Auto) 0.0, Total Counted 100, Neutrophils % (Manual) 93 H, Lymphocytes % (Manual) 3 L, Monocytes % (Manual) 4, Platelet Estimate Normal, RBC Morphology Normal 10/11/22 05:40: Sodium 135 L, Potassium 4.0, Chloride 107, Carbon Dioxide 30, Anion Gap 2.0 L, BUN 36 H, Creatinine 0.90, Estimated Creat Clear 60, Estimated GFR 86, Est GFR ( Amer) 104, Glucose 92, Calcium 8.2 L, Triglycerides 186 H, Cholesterol 141, LDL Cholesterol Direct 64.86 L, VLDL Cholesterol 37, HDL Cholesterol 25 L, Cholesterol/HDL Ratio 5.6 H 10/11/22 10:35: Magnesium 2.8 H 10/11/22 12:54: Specimen Source Right radial, O2 % 3.5 lpm, ABG pH 7.36, ABG pCO2 52.0 H, ABG pO2 58.1 L, ABG HCO3 28.4 H, ABG Total CO2 30.0 H, ABG O2 Saturation 90, ABG Base Excess 2.9 H, Beny Test Acceptable 10/11/22 18:11: Specimen Source Right radial, O2 % 3.5 lpm, ABG pH 7.37, ABG pCO2 48.5 H, ABG pO2 56.4 L, ABG HCO3 27.5 H, ABG Total CO2 29.0 H, ABG O2 Saturation 89 L, ABG Base Excess 2.3, Beny Test Acceptable I & O for Last 24 hours: Intake & Output 10/08/22 10/09/22 10/10/22 10/11/22 23:59 23:59 23:59 23:59 Intake Total 2200 / 2200 975 / 975 570 / 570 Output Total 2500 / 2700 1000 / 1000 Balance 2200 / 2200 -1525 / -1725 -430 / -430 Weight 49.073 kg 48.9 kg 48.9 kg Microbiology Reports for the Last 24 Hours: Microbiology 10/09/22 14:47 Blood Blood Culture - Preliminary NO GROWTH AFTER 48 HOURS 10/09/22 14:47 Blood Blood Culture - Preliminary NO GROWTH AFTER 48 HOURS Constitutional Constitutional: no acute distress, thin, chronically ill appearing, disheveled and agitated *Routine HEENT Exam Head: Present normocephalic Eye: Present EOMI and PERRL ENT: Present mucous membranes moist *Routine Neck Exam Neck: Present supple; Absent lymphadenopathy *Routine Respiratory Exam Respiratory: Present rhonchi, wheezes, normal respiratory effort and symmetric chest movement *Routine Cardiovascular Exam Cardiovascular: Present RRR *Routine Abdominal Exam Abdominal: Present soft and normoactive bowel sounds; Absent tenderness *Routine Extremities Exam Extremities: Absent cyanosis, clubbing or edema *Routine Skin Exam Skin: Present warm; Absent rash *Routine Neurological Exam Neurological: Present alert and moving all extremities Routine Psychiatric Exam Psychiatric: Present agitated Assessment and Plan *Assessment and plan (1) Acute respiratory failure with hypoxia and hypercapnia: Status: Acute Category: Medical Code(s): J96.01 - Acute respiratory failure with hypoxia; J96.02 - Acute respiratory failure with hypercapnia (2) Sepsis: Status: Acute Category: Medical Code(s): A41.9 - Sepsis, unspecified organism (3) Respiratory acidosis: Status: Acute Category: Medical Code(s): E87.29 - Other acidosis (4) NSTEMI (non-ST elevated myocardial infarction): Status: Acute Category: Medical Code(s):
[2022-10-12] VITALS (15 sets, daily range): BP systolic 126–165; BP diastolic 79–95; PULSE 78–120; RESP 17–33; TEMP 36.5–37.3; O2SAT 87–100; BMI 18.0
--- NOTE | 2022-10-12 01:29 | PC.NURSE ---
notified BHAVYA Rosas via telephone that pt very confused, attempting to pull all lines and catheters, refusing to stay in bed and very agitated; 1mg ativan IV ordered and given COAT PADDER to bedside, another 1mg ativan IV verbally ordered at bedside and given
[2022-10-12 03:28] LABS: Vancomycin,Trough 9.2 ug/mL (5.0-10.0)
--- NOTE | 2022-10-12 07:47 | EXP.PN ---
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 His blood pressures are stable. He is saturating appropriately on 4 L of oxygen via nasal cannula. He missed his nightly benzodiazepine dose. Exam Data for Last 24 hours Vital signs and Labs for Last 24 Hours: Temp Pulse Resp BP Pulse Ox FiO2 98.4 F 83 28 H 141/79 H 87 L 35 10/12/22 03:54 10/12/22 06:25 10/12/22 06:00 10/12/22 06:00 10/12/22 06:25 10/11/22 05:45 Laboratory Results - last 24 hr 10/11/22 05:40: Total Counted 100, Neutrophils % (Manual) 93 H, Lymphocytes % (Manual) 3 L, Monocytes % (Manual) 4, Platelet Estimate Normal, RBC Morphology Normal 10/11/22 10:35: Magnesium 2.8 H 10/11/22 12:54: Specimen Source Right radial, O2 % 3.5 lpm, ABG pH 7.36, ABG pCO2 52.0 H, ABG pO2 58.1 L, ABG HCO3 28.4 H, ABG Total CO2 30.0 H, ABG O2 Saturation 90, ABG Base Excess 2.9 H, Beny Test Acceptable 10/11/22 18:11: Specimen Source Right radial, O2 % 3.5 lpm, ABG pH 7.37, ABG pCO2 48.5 H, ABG pO2 56.4 L, ABG HCO3 27.5 H, ABG Total CO2 29.0 H, ABG O2 Saturation 89 L, ABG Base Excess 2.3, Beny Test Acceptable 10/12/22 02:40: Vancomycin Trough 9.2 I & O for Last 24 hours: Intake & Output 10/09/22 10/10/22 10/11/22 10/12/22 23:59 23:59 23:59 23:59 Intake Total 2200 / 2200 975 / 975 570 / 570 Output Total 2500 / 2700 1200 / 1400 200 / 200 Balance 2200 / 2200 -1525 / -1725 -630 / -830 -200 / -200 Weight 49.073 kg 48.9 kg 48.9 kg 52.219 kg Microbiology Reports for the Last 24 Hours: Microbiology 10/09/22 14:47 Blood Blood Culture - Preliminary NO GROWTH AFTER 48 HOURS 10/09/22 14:47 Blood Blood Culture - Preliminary NO GROWTH AFTER 48 HOURS Constitutional Constitutional: no acute distress, thin, chronically ill appearing, disheveled and agitated *Routine HEENT Exam Head: Present normocephalic Eye: Present EOMI and PERRL ENT: Present mucous membranes moist *Routine Neck Exam Neck: Present supple; Absent lymphadenopathy *Routine Respiratory Exam Respiratory: Present rhonchi, wheezes, normal respiratory effort and symmetric chest movement *Routine Cardiovascular Exam Cardiovascular: Present RRR *Routine Abdominal Exam Abdominal: Present soft and normoactive bowel sounds; Absent tenderness *Routine Extremities Exam Extremities: Absent cyanosis, clubbing or edema *Routine Skin Exam Skin: Present warm; Absent rash *Routine Neurological Exam Neurological: Present alert and moving all extremities Routine Psychiatric Exam Psychiatric: Present agitated Assessment and Plan *Assessment and plan (1) Acute respiratory failure with hypoxia and hypercapnia: Status: Acute Category: Medical Code(s): J96.01 - Acute respiratory failure with hypoxia; J96.02 - Acute respiratory failure with hypercapnia (2) Sepsis: Status: Acute Category: Medical Code(s): A41.9 - Sepsis, unspecified organism (3) Respiratory acidosis: Status: Acute Category: Medical Code(s): E87.29 - Other acidosis (4) NSTEMI (non-ST elevated myocardial infarction): Status: Acute Category: Medical Code(s): I21.4 - Non-ST elevation (NSTEMI) myocardial infarction (5) Elevated brain natriuretic peptide (BNP) level: Status: Acute Category: Medical Code(s): R79.89 - Other specified abnormal findings of blood chemistry (6) JASS (acute kidney injury): Status: Acute Category: Medical Code(s): N17.9 - Acute kidney failure, unspecified (7) Schizophrenia: Status: Acute Category: Medical Code(s): F20.9 - Schizophrenia, unspecified (8) Elevated d-dimer: Status: Acute Category: Medical Code(s): R79.89 - Other specified abnormal findings o
--- NOTE | 2022-10-12 08:55 | EXP.PHA.PN ---
Subjective *Date: 10/12/22 *Time: 08:55 Medical Exam Vital signs and Labs for Last 24 Hours: Vital Signs Temp Pulse Pulse Resp BP Pulse Ox 10/12/22 08:00 110 H 20 138/94 H 100 10/12/22 07:54 99 10/12/22 07:48 99.2 F 10/12/22 06:00 106 H 28 H 141/79 H 100 10/12/22 06:25 83 10/12/22 06:25 94 H 10/12/22 06:25 87 L 10/12/22 04:00 120 H 10/12/22 00:00 90 10/11/22 20:00 90 10/12/22 03:54 98.4 F 10/12/22 02:00 118 H 26 H 130/82 90 L 10/12/22 00:00 98 H 33 H 126/95 H 96 10/12/22 00:00 98.1 F 10/11/22 22:40 89 10/11/22 22:00 84 30 H 117/67 90 L 10/11/22 20:00 87 28 H 95/50 L 92 L 10/11/22 19:50 97.6 F 10/11/22 18:00 85 22 130/78 98 10/11/22 18:19 98 H 10/11/22 18:19 98 H 10/11/22 18:19 97 10/11/22 16:00 100 H 10/11/22 16:00 112 H 21 111/70 96 10/11/22 15:27 98.3 F 10/11/22 14:00 102 H 18 114/72 93 L 10/11/22 13:10 98 H 10/11/22 13:10 98 H 10/11/22 12:00 110 H 10/11/22 12:00 101 H 20 126/55 L 97 10/11/22 11:13 98.2 F 10/11/22 10:00 101 H 20 153/80 H 93 L 10/11/22 09:50 110 H 10/11/22 09:50 115 H Intake and Output 10/11/22 10/12/22 10/12/22 23:59 07:59 15:59 Intake Total 470 / 570 300 / 300 Output Total 200 / 1400 200 / 200 Balance 270 / -830 100 / 100 Intake: Intake, Oral Amount 120 / 120 300 / 300 Intake, Total IV Amount 350 / 450 Cefepime HCl 2 gm In 0.9 % 100 / 200 Sodium Chloride 100 ml @ 200 mls/hr IV Q8H [facility] Rx#:[id number] Vancomycin HCl 1,000 mg In 0.9 250 / 250 % Sodium Chloride 250 ml @ 125 mls/hr IV Q18H [facility] Rx#:[id number] Output: Output, Urine Amount 200 / 1200 0 / 0 Output, Urine Amount (Catheter) 200 / 200 Joseph 200 / 200 Other: Number of Unmeasured Voids 0 0 Number of Bowel Movements 1 1 Weight 52.219 kg Patient Weight 10/12/22 23:59 Weight 52.219 kg Laboratory Results - last 24 hr 10/11/22 10:35: Magnesium 2.8 H 10/11/22 12:54: Specimen Source Right radial, O2 % 3.5 lpm, ABG pH 7.36, ABG pCO2 52.0 H, ABG pO2 58.1 L, ABG HCO3 28.4 H, ABG Total CO2 30.0 H, ABG O2 Saturation 90, ABG Base Excess 2.9 H, Beny Test Acceptable 10/11/22 18:11: Specimen Source Right radial, O2 % 3.5 lpm, ABG pH 7.37, ABG pCO2 48.5 H, ABG pO2 56.4 L, ABG HCO3 27.5 H, ABG Total CO2 29.0 H, ABG O2 Saturation 89 L, ABG Base Excess 2.3, Beny Test Acceptable 10/12/22 02:40: Vancomycin Trough 9.2 I & O for Labs for Last 24 Hours: Intake & Output 10/09/22 10/10/22 10/11/22 10/12/22 23:59 23:59 23:59 23:59 Intake Total 2200 / 2200 975 / 975 570 / 570 300 / 300 Output Total 2500 / 2700 1200 / 1400 200 / 200 Balance 2200 / 2200 -1525 / -1725 -630 / -830 100 / 100 Weight 49.073 kg 48.9 kg 48.9 kg 52.219 kg Microbiology Reports for the Last 24 Hours: Microbiology 10/09/22 14:47 Blood Blood Culture - Preliminary NO GROWTH AFTER 48 HOURS 10/09/22 14:47 Blood Blood Culture - Preliminary NO GROWTH AFTER 48 HOURS The patient's infection will respond to the chosen ABx?: Yes (BLOOD CULTURES NO GROWTH, SPUTUM UNCOLLECTED.) Is the patient receiving the right drug, dose, and route?: Yes Could a more targeted ABx be ordered?: No
--- NOTE | 2022-10-12 09:16 | EXP.PHA.CONS ---
Pharmacy Consult Date: 10/12/22 Time: 09:16 Referring provider: DR CARDOZA Reason for Consult:: VANCOMYCIN DOSE ADJUSTMENT BASED ON TROUGH LEVEL OBTAINED. Allergies Allergy/AdvReac Type Severity Reaction Status Date / Time No Known Allergies Allergy Verified 07/14/22 08:35 Home Medications Medication Instructions Recorded Confirmed Type aspirin 81 mg chewable tablet 81 mg PO DAILY Heart health 10/09/22 10/09/22 History chlorpromazine 200 mg tablet 200 mg PO HS Anxiety 10/09/22 10/09/22 History metoprolol succinate 100 mg 100 mg PO DAILY High blood pressure 10/09/22 10/09/22 History tablet,extended release 24 hr mirtazapine 45 mg tablet 45 mg PO HS Depression 10/09/22 10/09/22 History olanzapine 20 mg tablet 20 mg PO HS Depression 10/09/22 10/09/22 History omeprazole 40 mg capsule,delayed 40 mg PO DAILY acid reflux 10/09/22 10/09/22 History release oxcarbazepine 300 mg tablet 300 mg PO BID Seizure Control 10/09/22 10/09/22 History trazodone 100 mg tablet 100 mg PO HS Sleep 10/09/22 10/09/22 History umeclidinium 62.5 mcg-vilanterol 1 inh inhalation DAILY Breathing 10/09/22 10/09/22 History 25 mcg/actuation powdr for problems inhalation (Anoro Ellipta) acetaminophen 500 mg tablet 500 mg PO Q6H PRN Pain 10/10/22 10/10/22 History (Acetaminophen Extra Strength) bismuth subsalicylate 262 mg/15 mL 524 mg PO Q2HP PRN Diarrhea 10/10/22 10/10/22 History oral suspension clonazepam 1 mg tablet 1 mg PO HS Anxiety 10/10/22 10/10/22 History diphenhydramine HCl 25 mg capsule 25 mg PO QIDP PRN allergies 10/10/22 10/10/22 History (Banophen) guaifenesin 100 mg/5 mL oral 200 mg PO Q4HP PRN Cough 10/10/22 10/10/22 History liquid (Siltussin SA) ipratropium 20 mcg-albuterol 100 1 puff inhalation Q6HP PRN 10/10/22 10/10/22 History mcg/actuation mist for inhalation breathing problems (Combivent Respimat) nicotine 21 mg/24 hr daily 1 patch transdermal DAILYP PRN 10/10/22 10/10/22 History transdermal patch smoking cessation sertraline 100 mg tablet 100 mg PO DAILY Depression 10/10/22 10/10/22 History New Prescriptions to Start Prescriptions: Height: 1.7 m Weight: 52.219 kg Laboratory Results:: Laboratory Results - last 24 hr 10/11/22 10:35: Magnesium 2.8 H 10/11/22 12:54: Specimen Source Right radial, O2 % 3.5 lpm, ABG pH 7.36, ABG pCO2 52.0 H, ABG pO2 58.1 L, ABG HCO3 28.4 H, ABG Total CO2 30.0 H, ABG O2 Saturation 90, ABG Base Excess 2.9 H, Beny Test Acceptable 10/11/22 18:11: Specimen Source Right radial, O2 % 3.5 lpm, ABG pH 7.37, ABG pCO2 48.5 H, ABG pO2 56.4 L, ABG HCO3 27.5 H, ABG Total CO2 29.0 H, ABG O2 Saturation 89 L, ABG Base Excess 2.3, Beny Test Acceptable 10/12/22 02:40: Vancomycin Trough 9.2 Medical History: Medical History (Updated 10/10/22 @ 10:41 by Ratna Conrad APRN) Abnormal stress test Acute respiratory failure with hypoxia Acute respiratory failure with hypoxia and hypercapnia JASS (acute kidney injury) Angina, class IV Anxiety Chest pain COPD (chronic obstructive pulmonary disease) with acute bronchitis Coronary artery disease Dyspnea Elevated brain natriuretic peptide (BNP) level Elevated d-dimer Elevated troponin Hypertension NSTEMI (non-ST elevated myocardial infarction) Palpitations Pneumonia Pneumonia due to COVID-19 virus Respiratory acidosis Schizophrenia Sepsis Tobacco dependence syndrome Assessment and Plan Assessment and plan all Dx Assessment and Plan for all problems:: Pharmacokinetic dosing service Weight: 52.219 Kilograms Vancomycin single level analysis: Current dose being given: 1000 mg Current dosing interval: 18 hrs Current infusion time (hrs): 2 Single level Trough Data: Trough level obtained: 9.2 mcg/ml Timing of trough - # of hrs before next dose: 0.5 Hrs (10/12/22 02:40) Desired peak: 35 mcg/ml Desired trough: 12.5 mcg/ml Estimated PK Parameters: New rate constant (trish): 0.076 hr-1 H
--- NOTE | 2022-10-12 10:21 | EXP.PULM.PN ---
Subjective *Date: 10/12/22 *Time: 10:21 Interval history: No acute respiratory events overnight. Continues to remain on nasal cannula at 3 to 4 L saturations maintained at 90% and above. Pulmonology Exam Inpatient Vital signs and Labs for Last 24 Hours: Temp Pulse Resp BP Pulse Ox FiO2 99.2 F 102 H 21 136/84 95 35 10/12/22 07:48 10/12/22 10:00 10/12/22 10:00 10/12/22 10:00 10/12/22 10:00 10/11/22 05:45 Laboratory Results - last 24 hr 10/11/22 10:35: Magnesium 2.8 H 10/11/22 12:54: Specimen Source Right radial, O2 % 3.5 lpm, ABG pH 7.36, ABG pCO2 52.0 H, ABG pO2 58.1 L, ABG HCO3 28.4 H, ABG Total CO2 30.0 H, ABG O2 Saturation 90, ABG Base Excess 2.9 H, Beny Test Acceptable 10/11/22 18:11: Specimen Source Right radial, O2 % 3.5 lpm, ABG pH 7.37, ABG pCO2 48.5 H, ABG pO2 56.4 L, ABG HCO3 27.5 H, ABG Total CO2 29.0 H, ABG O2 Saturation 89 L, ABG Base Excess 2.3, Beny Test Acceptable 10/12/22 02:40: Vancomycin Trough 9.2 I & O for Labs for Last 24 Hours: Intake & Output 10/09/22 10/10/22 10/11/22 10/12/22 23:59 23:59 23:59 23:59 Intake Total 2200 / 2200 975 / 975 570 / 570 300 / 300 Output Total 2500 / 2700 1200 / 1400 200 / 200 Balance 2200 / 2200 -1525 / -1725 -630 / -830 100 / 100 Weight 108 lb 3 oz 107 lb 12.897 oz 107 lb 12.897 oz 115 lb 1.979 oz Microbiology Reports for the Last 24 Hours: Microbiology 10/09/22 14:47 Blood Blood Culture - Preliminary NO GROWTH AFTER 48 HOURS 10/09/22 14:47 Blood Blood Culture - Preliminary NO GROWTH AFTER 48 HOURS Constitutional: Present moderate distress Head: Present normocephalic and atraumatic ENT: Present normal exam, normal oropharynx and mucous membranes moist Neck: Present normal inspection and full ROM Respiratory: Present prolonged expiratory phase and respiratory distress; Absent wheezes, diminished air movement or able to speak in complete sentences Cardiac: Present S1/S2, Tachycardia and radial pulses present GI: Present soft and distention; Absent tenderness or guarding Skin: Present intact; Absent cyanosis or jaundice Neuro: Present alert, awake and oriented x 3 Extremities: Present normal inspection; Absent clubbing or cyanosis Psychiatric: Present normal affect and cooperative Assessment and Plan *Assessment and plan (1) Acute respiratory failure with hypoxia and hypercapnia: Status: Acute Category: Medical Code(s): J96.01 - Acute respiratory failure with hypoxia; J96.02 - Acute respiratory failure with hypercapnia (2) Pneumonia: Status: Acute Category: Medical Code(s): J18.9 - Pneumonia, unspecified organism Plan Mr. Abrams is a 62-year-old male prior history of tach ongoing tobacco abuse, schizophrenia hypertension CAD presented to the hospital with 3 to 4-day history of fevers and worsening respiratory distress upon admission patient found to be in hypoxic respiratory failure, altered mentation eventually needing high flow nasal cannula and BiPAP and pulmonary was called for further evaluation. #Acute hypoxic and hypercarbic respiratory failure: #Pneumonia History of tobacco abuse. Presented with worsening respiratory distress and altered mentation. Initial pH was 7.36 cannot explain patient's altered mentation especially with PCO2 54.6. CT head admission no acute findings Chest x-ray admission bilateral patchy airspace disease right greater than left. X-ray also concerning for increasing interstitial markings. Significant leukocytosis on admission. Lactate from this morning within normal limits. On admission - Patient initiated on vancomycin and cefepime as per sepsis protocol pending cultures. Patient also received 2 g of magnesium upon admission, post infusion magnesium was at 3.0. Interval update: No acute respiratory vents overnight continue to remain on 3 to 4 L nasal cannula. ABG on room air from yesterday evening did not show any evide
--- NOTE | 2022-10-12 10:24 | XR_ITS ---
FINAL REPORT CLINICAL HISTORY: hypoxia FINDINGS: A portable view of the chest was obtained. Comparison is made to a prior exam dated 10/10/2022. Cardiac and mediastinal silhouettes are within normal limits. There has been interval worsening of interstitial opacities, pulmonary edema is not excluded. Bibasilar opacities have increased, favor atelectasis.. There is no pleural effusion or pneumothorax. IMPRESSION: 1. Worsening interstitial opacities, pulmonary edema not excluded. 2. Increase in bibasilar opacities, favor atelectasis. . Reviewed, Interpreted and Dictated by Aimee Mcnamara MD Transcribed by Mariajose Casillas Authenticated and [facility]
--- NOTE | 2022-10-12 11:27 | PC.NURSE ---
spoke with Dr. Canas about taking pt out of stepdown, he stated it was ok to take patient out of stepdown and that he did not need monitors on
--- NOTE | 2022-10-12 13:24 | PC.NURSE ---
THIS NURSE FED PT LUNCH, PT WAS UNABLE TO HOLD FORK TO EAT. WITH HELP, PT ATE 100% OF MEAL.
[2022-10-12 14:13] LABS: Body Fluid Culture, Sterile Not indicated. (.); Legionella pneumophila Urinary Negative (Negative); Organism ID Not indicated. (.); Specimen Source Urine (.); Streptococcus pneumoniae Ag Negative (Negative)
--- NOTE | 2022-10-12 18:22 | PC.NURSE ---
PT HAS BEEN VERY CONFUSED, RESTLESS AND COMBATIVE T/O MAJORITY OF SHIFT. PT HAS REQUIRED 1X1 STAFFING. TOLERATING 4LNC, BUT CONTINUALLY REMOVES O2 AND OTHER WIRES. PT HAS REMOVED IV FROM L HAND. PT HAS BEEN INCONTINENT OF BOWEL AND BLADDER SINCE REMOVAL OF F/C. BED ALARM ON. PT HAS HAD NO NEEDS OR C/O. HAS HAD VERY LARGE APPETITE. NO TROUBLE SWALLOWING FOOD OR DRINK. VSS.
[2022-10-13] VITALS (9 sets, daily range): BP systolic 138–154; BP diastolic 71–96; PULSE 64–107; RESP 16–36; TEMP 36.5–37.1; O2SAT 91–96; BMI 18.1
[2022-10-13 06:23] LABS: Basophils # 0.1 K/mm3 (0-0.2); Basophils % 0.4 % (0.1-2.0); Eosinophils # 0.3 K/mm3 (0.0-0.4); Eosinophils % 2.3 % (0.1-12.0); Hematocrit 39.4 % (42.0-52.0); Hemoglobin 12.5 g/dL (14.1-18.0); Lymphocytes # 1.6 K/mm3 (0.7-4.5); Lymphocytes % 12.2 % (10-50); Mean Corpuscular HGB Conc 31.7 g/dL (31.8-35.4); Mean Corpuscular Hemoglobin 32.9 pg (27.0-31.2); Mean Corpuscular Volume 103.7 fl (80-94); Mean Platelet Volume 7.7 fl (7.4-10.4); Monocytes # 0.9 K/mm3 (0.1-1.0); Monocytes % 7.1 % (1.7-9.3); Platelet Count 357 K/mm3 (142-424); Red Cell Distribution Width 15.1 % (11.5-17.5); White Blood Count 12.8 K/mm3 (4.8-10.8)
[2022-10-13 06:29] LABS: Alanine Aminotransferase 21 U/L (12-78); Albumin Level 3.1 g/dl (3.5-5.0); Albumin/Globulin Ratio 1.1 (1.1-1.8); Alkaline Phosphatase 67 U/L (38-126); Anion Gap 4.4 mEq/L (5-15); Aspartate Amino Transferase 40 U/L (17-59); Bilirubin,Total 0.8 mg/dl (0.2-1.3); Blood Urea Nitrogen 12 mg/dl (9-20); Calcium 8.1 mg/dl (8.4-10.2); Carbon Dioxide 34 mmol/L (22.0-30.0); Chloride 98 mmol/L (98-107); Creatinine Clearance Estimated 97 mL/min (50-200); Estimated Glomerular Filt Rate 137 ml/min (>60); GFR (African American) 166 ML/MIN (>60); Globulin 2.8 g/dL (1.3-3.2); Glucose 97 mg/dl (74-100); Potassium 3.4 mmoL/L (3.5-5.1); Sodium 133 mmol/L (136-145); Total Protein,Serum 5.9 g/dl (6.3-8.2)
--- NOTE | 2022-10-13 08:28 | EXP.PULM.PN ---
Subjective *Date: 10/13/22 *Time: 11:25 Interval history: No acute respiratory vents overnight. Stable oxygen requirements. Patient not engaging in conversation. Pulmonology Exam Inpatient Vital signs and Labs for Last 24 Hours: Temp Pulse Resp BP Pulse Ox FiO2 98.8 F 84 16 144/71 H 91 L 35 10/13/22 04:00 10/13/22 06:12 10/13/22 04:00 10/13/22 04:00 10/13/22 06:12 10/11/22 05:45 Laboratory Results - last 24 hr 10/10/22 03:48: Fluid Culture Not indicated., S. pneumoniae Antigen Negative, S. pneumoniae Ag Source Urine, Organism ID Not indicated. 10/10/22 03:48: Ur L.pneumophila Ag Negative 10/13/22 05:45: WBC 12.8 H, RBC 3.80 L, Hgb 12.5 L, Hct 39.4 L, MCV 103.7 H, MCH 32.9 H, MCHC 31.7 L, RDW 15.1, Plt Count 357, MPV 7.7, Neut % (Auto) 78.0, Lymph % (Auto) 12.2, [place] % (Auto) 7.1, Eos % (Auto) 2.3, Baso % (Auto) 0.4, Neut # (Auto) 10.0 H, Lymph # (Auto) 1.6, [place] # (Auto) 0.9, Eos # (Auto) 0.3, Baso # (Auto) 0.1 10/13/22 05:45: Sodium 133 L, Potassium 3.4 L, Chloride 98, Carbon Dioxide 34 H, Anion Gap 4.4 L, BUN 12 D, Creatinine 0.60 L D, Estimated Creat Clear 97, Estimated GFR 137, Est GFR ( Amer) 166 D, Glucose 97, Calcium 8.1 L, Total Bilirubin 0.8, AST 40, ALT 21, Alkaline Phosphatase 67, Total Protein 5.9 L, Albumin 3.1 L, Globulin 2.8, Albumin/Globulin Ratio 1.1 I & O for Labs for Last 24 Hours: Intake & Output 10/10/22 10/11/22 10/12/22 10/13/22 23:59 23:59 23:59 23:59 Intake Total 975 / 975 570 / 570 600 / 600 Output Total 2500 / 2700 1200 / 1400 2250 / 2250 0 / 0 Balance -1525 / -1725 -630 / -830 -1650 / -1650 0 / 0 Weight 107 lb 12.897 oz 107 lb 12.897 oz 115 lb 1.979 oz 115 lb 9 oz Microbiology Reports for the Last 24 Hours: Microbiology 10/09/22 14:47 Blood Blood Culture - Preliminary NO GROWTH AFTER 48 HOURS 10/09/22 14:47 Blood Blood Culture - Preliminary NO GROWTH AFTER 48 HOURS Constitutional: Present moderate distress Head: Present normocephalic and atraumatic ENT: Present normal exam, normal oropharynx and mucous membranes moist Neck: Present normal inspection and full ROM Respiratory: Present prolonged expiratory phase, respiratory distress and rhonchi; Absent wheezes, diminished air movement or able to speak in complete sentences Cardiac: Present S1/S2, Tachycardia and radial pulses present GI: Present soft and distention; Absent tenderness or guarding Skin: Present intact; Absent cyanosis or jaundice Neuro: Present awake; Absent alert or oriented x 3 Extremities: Present normal inspection; Absent clubbing or cyanosis Psychiatric: Present normal affect and cooperative Assessment and Plan *Assessment and plan (1) Acute respiratory failure with hypoxia and hypercapnia: Status: Acute Category: Medical Code(s): J96.01 - Acute respiratory failure with hypoxia; J96.02 - Acute respiratory failure with hypercapnia (2) Pneumonia: Status: Acute Category: Medical Code(s): J18.9 - Pneumonia, unspecified organism Plan Mr. Abrams is a 62-year-old male prior history of tach ongoing tobacco abuse, schizophrenia hypertension CAD presented to the hospital with 3 to 4-day history of fevers and worsening respiratory distress upon admission patient found to be in hypoxic respiratory failure, altered mentation eventually needing high flow nasal cannula and BiPAP and pulmonary was called for further evaluation. #Acute hypoxic and hypercarbic respiratory failure: #Pneumonia History of tobacco abuse. Presented with worsening respiratory distress and altered mentation. Initial pH was 7.36 cannot explain patient's altered mentation especially with PCO2 54.6. CT head admission no acute findings Chest x-ray admission bilateral patchy airspace disease right greater than left. X-ray also concerning for increasing interstitial markings. Significant leukocytosis on admission. Lactate from this morning withi
--- NOTE | 2022-10-13 16:02 | EXP.PN ---
Subjective *Date: 10/13/22 *Time: 16:19 Interval history: Date of service October 13, 2022 The patient is sitting up in his bedside chair is more alert and interactive. Nursing staff report that he remains afebrile with stable vital signs and saturating appropriately on his nasal cannula oxygen. Pulmonology continues to follow. We have reviewed and discussed his morning labs which include an improved CBC with a downward trending leukocytoses white blood cell count 12.8, hemoglobin stable 12.5, MCV 104, platelet count 357. His electrolytes identify a potassium 3.4, sodium 133 CO2 34 BUN of 12 and creatinine 0.6. His total bilirubin and LFTs are normal. His blood cultures identified no growth to date. His chest x-ray identifies concerns with pulmonary edema and loop diuretic therapy has been ordered. Case management is assisting with next site of care. PT and OT evaluations have been noted. Exam Data for Last 24 hours Vital signs and Labs for Last 24 Hours: Temp Pulse Resp BP Pulse Ox FiO2 97.9 F 64 20 138/76 96 35 10/13/22 12:00 10/13/22 12:10/13/22 12:10/13/22 12:10/13/22 12:00 10/11/22 05:45 Laboratory Results - last 24 hr 10/13/22 05:45: WBC 12.8 H, RBC 3.80 L, Hgb 12.5 L, Hct 39.4 L, MCV 103.7 H, MCH 32.9 H, MCHC 31.7 L, RDW 15.1, Plt Count 357, MPV 7.7, Neut % (Auto) 78.0, Lymph % (Auto) 12.2, [place] % (Auto) 7.1, Eos % (Auto) 2.3, Baso % (Auto) 0.4, Neut # (Auto) 10.0 H, Lymph # (Auto) 1.6, [place] # (Auto) 0.9, Eos # (Auto) 0.3, Baso # (Auto) 0.1 10/13/22 05:45: Sodium 133 L, Potassium 3.4 L, Chloride 98, Carbon Dioxide 34 H, Anion Gap 4.4 L, BUN 12 D, Creatinine 0.60 L D, Estimated Creat Clear 97, Estimated GFR 137, Est GFR ( Amer) 166 D, Glucose 97, Calcium 8.1 L, Total Bilirubin 0.8, AST 40, ALT 21, Alkaline Phosphatase 67, Total Protein 5.9 L, Albumin 3.1 L, Globulin 2.8, Albumin/Globulin Ratio 1.1 I & O for Last 24 hours: Intake & Output 10/10/22 10/11/22 10/12/22 10/13/22 23:59 23:59 23:59 23:59 Intake Total 975 / 975 570 / 570 600 / 600 Output Total 2500 / 2700 1200 / 1400 2250 / 2250 0 / 0 Balance -1525 / -1725 -630 / -830 -1650 / -1650 0 / 0 Weight 48.9 kg 48.9 kg 52.219 kg 52.418 kg Constitutional Constitutional: no acute distress, thin, chronically ill appearing, disheveled and somnolent *Routine HEENT Exam Head: Present normocephalic Eye: Present EOMI and PERRL ENT: Present mucous membranes moist *Routine Neck Exam Neck: Present supple; Absent lymphadenopathy *Routine Respiratory Exam Respiratory: Present rhonchi, wheezes, normal respiratory effort and symmetric chest movement *Routine Cardiovascular Exam Cardiovascular: Present RRR *Routine Abdominal Exam Abdominal: Present soft and normoactive bowel sounds; Absent tenderness *Routine Extremities Exam Extremities: Absent cyanosis, clubbing or edema *Routine Skin Exam Skin: Present warm; Absent rash *Routine Neurological Exam Neurological: Present alert, moving all extremities, vision grossly intact and hearing grossly intact; Absent sensory deficit or motor deficit Routine Psychiatric Exam Psychiatric: Present unable to assess Assessment and Plan *Assessment and plan (1) Sepsis: Status: Acute Category: Medical Code(s): A41.9 - Sepsis, unspecified organism (2) Acute respiratory failure with hypoxia and hypercapnia: Status: Acute Category: Medical Code(s): J96.01 - Acute respiratory failure with hypoxia; J96.02 - Acute respiratory failure with hypercapnia (3) Pneumonia: Status: Acute Category: Medical Code(s): J18.9 - Pneumonia, unspecified organism (4) NSTEMI (non-ST elevated myocardial infarction): Status: Acute Category: Medical Code(s): I21.4 - Non-ST elevation (NSTEMI) myocardial infarction (5) JASS (acute kidney injury): Status: Acute Category: Medical Code(s): N17.9 - Acute kidney failure, unspecified (6) Eladioi
--- NOTE | 2022-10-13 20:29 | PC.NURSE ---
He is alert to name and year. States, right here when asked where he is at. He is unable to name the building he is located in when asked more specifically. Reoriented to place. He continues in seizure precautions. He has continously tried to get out of bed and has been setting off the safety alarm frequently. A new IV was also placed and he pulled out his new IV and his previous IV. He currently has a sitter in his room as he is taking off his oxygen as well. He continues on 4LPM n/c. Non-productive cough.
[2022-10-14] VITALS (7 sets, daily range): BP systolic 130–143; BP diastolic 62–90; PULSE 65–98; RESP 18–24; TEMP 36.7–37.1; O2SAT 90–100; BMI 17.3
[2022-10-14 07:05] LABS: Blood Urea Nitrogen 15 mg/dl (9-20); Calcium 8.5 mg/dl (8.4-10.2); Chloride 92 mmol/L (98-107); Creatinine Clearance Estimated 80 mL/min (50-200); Estimated Glomerular Filt Rate 115 ml/min (>60); GFR (African American) 139 ML/MIN (>60); Glucose 106 mg/dl (74-100); Potassium 3.5 mmoL/L (3.5-5.1); Sodium 134 mmol/L (136-145)
[2022-10-14 07:12] LABS: Anion Gap 7.5 mEq/L (5-15); Carbon Dioxide 38 mmol/L (22.0-30.0)
[2022-10-14 07:15] LABS: NT Pro Brain Natriuretic Pep. 1510 pg/mL (0-125)
[2022-10-14 07:22] LABS: Procalcitonin 0.162 ng/mL (0.0-2.0)
[2022-10-14 08:41] LABS: Basophils # 0.3 K/mm3 (0-0.2); Basophils % 2.2 % (0.1-2.0); Eosinophils # 0.5 K/mm3 (0.0-0.4); Eosinophils % 4.5 % (0.1-12.0); Hematocrit 44.5 % (42.0-52.0); Hemoglobin 13.8 g/dL (14.1-18.0); Lymphocytes # 1.3 K/mm3 (0.7-4.5); Lymphocytes % 11.5 % (10-50); Mean Corpuscular Hemoglobin 31.9 pg (27.0-31.2); Mean Platelet Volume 8.2 fl (7.4-10.4); Monocytes # 0.7 K/mm3 (0.1-1.0); Monocytes % 6.5 % (1.7-9.3); Neutrophils # 8.4 K/mm3 (1.8-7.8); Neutrophils % 75.3 % (37.0-80.0); Platelet Count 360 K/mm3 (142-424); Red Blood Count 4.32 M/mm3 (4.60-6.20); Red Cell Distribution Width 15.1 % (11.5-17.5); White Blood Count 11.2 K/mm3 (4.8-10.8)
--- NOTE | 2022-10-14 10:14 | EXP.PN ---
Subjective *Date: 10/14/22 *Time: 16:38 Interval history: Date of service October 14, 2022 The patient reports no acute events overnight. He is alert and interactive today sitting up in bedside chair. He is wearing his nasal cannula oxygen. Exam Data for Last 24 hours Vital signs and Labs for Last 24 Hours: Temp Pulse Resp BP Pulse Ox FiO2 98.8 F 93 H 19 134/62 97 35 10/14/22 08:00 10/14/22 08:00 10/14/22 08:00 10/14/22 08:00 10/14/22 08:00 10/11/22 05:45 Laboratory Results - last 24 hr 10/14/22 06:30: WBC 11.2 H, RBC 4.32 L, Hgb 13.8 L, Hct 44.5, MCV 103.0 H, MCH 31.9 H, MCHC 31.0 L, RDW 15.1, Plt Count 360, MPV 8.2, Neut % (Auto) 75.3, Lymph % (Auto) 11.5, [place] % (Auto) 6.5, Eos % (Auto) 4.5, Baso % (Auto) 2.2 H, Neut # (Auto) 8.4 H, Lymph # (Auto) 1.3, [place] # (Auto) 0.7, Eos # (Auto) 0.5 H, Baso # (Auto) 0.3 H 10/14/22 06:30: Sodium 134 L, Potassium 3.5, Chloride 92 L, Carbon Dioxide 38 H, Anion Gap 7.5, BUN 15, Creatinine 0.70, Estimated Creat Clear 80, Estimated GFR 115, Est GFR ( Amer) 139, Glucose 106 H, Calcium 8.5, NT-Pro-B Natriuret Pep 1510 H, Procalcitonin 0.162 I & O for Last 24 hours: Intake & Output 10/11/22 10/12/22 10/13/22 10/14/22 23:59 23:59 23:59 23:59 Intake Total 570 / 570 600 / 600 480 / 480 470 / 470 Output Total 1200 / 1400 2250 / 2250 0 / 0 0 / 0 Balance -630 / -830 -1650 / -1650 480 / 480 470 / 470 Weight 48.9 kg 52.219 kg 52.418 kg 50.122 kg Constitutional Constitutional: no acute distress, thin, chronically ill appearing, disheveled and cooperative *Routine HEENT Exam Head: Present normocephalic Eye: Present EOMI and PERRL ENT: Present mucous membranes moist *Routine Neck Exam Neck: Present supple; Absent lymphadenopathy *Routine Respiratory Exam Respiratory: Present rhonchi, wheezes, normal respiratory effort and symmetric chest movement *Routine Cardiovascular Exam Cardiovascular: Present RRR *Routine Abdominal Exam Abdominal: Present soft and normoactive bowel sounds; Absent tenderness *Routine Extremities Exam Extremities: Absent cyanosis, clubbing or edema *Routine Skin Exam Skin: Present warm; Absent rash *Routine Neurological Exam Neurological: Present alert, moving all extremities, vision grossly intact and hearing grossly intact; Absent sensory deficit or motor deficit Routine Psychiatric Exam Psychiatric: Present unable to assess Assessment and Plan *Assessment and plan (1) Sepsis: Status: Acute Category: Medical Code(s): A41.9 - Sepsis, unspecified organism (2) Acute respiratory failure with hypoxia and hypercapnia: Status: Acute Category: Medical Code(s): J96.01 - Acute respiratory failure with hypoxia; J96.02 - Acute respiratory failure with hypercapnia (3) Pneumonia: Status: Acute Category: Medical Code(s): J18.9 - Pneumonia, unspecified organism (4) NSTEMI (non-ST elevated myocardial infarction): Status: Acute Category: Medical Code(s): I21.4 - Non-ST elevation (NSTEMI) myocardial infarction (5) JASS (acute kidney injury): Status: Acute Category: Medical Code(s): N17.9 - Acute kidney failure, unspecified (6) Schizophrenia: Status: Acute Category: Medical Code(s): F20.9 - Schizophrenia, unspecified (7) Encephalopathy: Status: Acute Category: Medical Code(s): G93.40 - Encephalopathy, unspecified Plan Mr. Abrams is a 62-year-old male who is a resident of a local Assisted Living Facility who presented with fevers, lethargy, hypoxia, Tachycardia, Tachypnea. Admitted for initially hypoxemic respiratory failure but developed worsening hypercarbia. Progressed to BiPAP first night of admission. Pulmonology consulted, appreciate their recommendations. Problems addressed as follows: Sepsis (POA) Tachypnea, tachycardia, leukocytoses, source on imaging Resolved IV fluid resuscitation with normalized lactic acid
--- NOTE | 2022-10-14 13:47 | PC.NURSE ---
report given to tana parks rn [id number]
[2022-10-14 21:46] LABS: MRSA DNA PCR NEGATIVE
[2022-10-15] VITALS (11 sets, daily range): BP systolic 132–146; BP diastolic 74–85; PULSE 82–104; RESP 16–19; TEMP 36.6–36.9; O2SAT 84–99; BMI 17.4
--- NOTE | 2022-10-15 06:15 | PC.NURSE ---
Pt bed alarm started going off. Upon entering room pt sitting up in bed with oxygen off. Oxygen reapplied and O2 sat 72%. O2 titrated up to 6 L nc. O2 now 91%.
[2022-10-15 08:02] LABS: Basophils # 0.1 K/mm3 (0-0.2); Basophils % 0.7 % (0.1-2.0); Eosinophils # 0.7 K/mm3 (0.0-0.4); Eosinophils % 5.4 % (0.1-12.0); Hemoglobin 14.1 g/dL (14.1-18.0); Lymphocytes # 2.6 K/mm3 (0.7-4.5); Lymphocytes % 19.2 % (10-50); Mean Corpuscular HGB Conc 32.1 g/dL (31.8-35.4); Mean Corpuscular Hemoglobin 32.3 pg (27.0-31.2); Mean Corpuscular Volume 100.7 fl (80-94); Mean Platelet Volume 7.7 fl (7.4-10.4); Monocytes # 1.1 K/mm3 (0.1-1.0); Monocytes % 7.8 % (1.7-9.3); Neutrophils % 66.9 % (37.0-80.0); Platelet Count 524 K/mm3 (142-424); Red Blood Count 4.37 M/mm3 (4.60-6.20); Red Cell Distribution Width 14.9 % (11.5-17.5); White Blood Count 13.4 K/mm3 (4.8-10.8)
[2022-10-15 08:45] LABS: Vitamin B12 411 pg/mL (239-931)
--- NOTE | 2022-10-15 13:38 | EXP.PN ---
Subjective *Date: 10/15/22 *Time: 13:38 Interval history: Date of service October 15, 2022 The patient reports no dyspnea or overnight concerns. Nursing staff report that he is afebrile with stable heart rates and blood pressures. He is still requiring supplemental oxygen to maintain appropriate oxygen saturations. A room air oxygen saturation identified pulse ox of 88%. We have reviewed and discussed and personally interpreted his morning labs as follows: CBC with a stable leukocytoses white blood cell count of 13,000, hemoglobin stable 14, hematocrit 44, platelet count 524. His procalcitonin is negative and his vitamin B12 level is 411. Exam Data for Last 24 hours Vital signs and Labs for Last 24 Hours: Temp Pulse Resp BP Pulse Ox FiO2 98.1 F 98 H 19 133/85 94 L 35 10/15/22 12:00 10/15/22 12:40 10/15/22 12:00 10/15/22 12:00 10/15/22 12:40 10/11/22 05:45 Laboratory Results - last 24 hr 10/09/22 20:15: MRSA (PCR) Negative 10/15/22 06:39: WBC 13.4 H, RBC 4.37 L, Hgb 14.1, Hct 44.0, MCV 100.7 H, MCH 32.3 H, MCHC 32.1, RDW 14.9, Plt Count 524 H D, MPV 7.7, Neut % (Auto) 66.9, Lymph % (Auto) 19.2, [place] % (Auto) 7.8, Eos % (Auto) 5.4, Baso % (Auto) 0.7, Neut # (Auto) 9.0 H, Lymph # (Auto) 2.6, [place] # (Auto) 1.1 H, Eos # (Auto) 0.7 H, Baso # (Auto) 0.1 10/15/22 06:39: Vitamin B12 411 I & O for Last 24 hours: Intake & Output 10/12/22 10/13/22 10/14/22 10/15/22 23:59 23:59 23:59 23:59 Intake Total 600 / 600 480 / 480 1190 / 1290 800 / 800 Output Total 2250 / 2250 0 / 0 0 / 0 0 / 0 Balance -1650 / -1650 480 / 480 1190 / 1290 800 / 800 Weight 52.219 kg 52.418 kg 50.122 kg 50.434 kg Microbiology Reports for the Last 24 Hours: Microbiology 10/09/22 14:47 Blood Blood Culture - Final NO GROWTH AFTER 5 DAYS 10/09/22 14:47 Blood Blood Culture - Final NO GROWTH AFTER 5 DAYS Constitutional Constitutional: no acute distress, thin, chronically ill appearing, disheveled and cooperative *Routine HEENT Exam Head: Present normocephalic Eye: Present EOMI and PERRL ENT: Present mucous membranes moist *Routine Neck Exam Neck: Present supple; Absent lymphadenopathy *Routine Respiratory Exam Respiratory: Present rhonchi, wheezes, normal respiratory effort and symmetric chest movement *Routine Cardiovascular Exam Cardiovascular: Present RRR *Routine Abdominal Exam Abdominal: Present soft and normoactive bowel sounds; Absent tenderness *Routine Extremities Exam Extremities: Absent cyanosis, clubbing or edema *Routine Skin Exam Skin: Present warm; Absent rash *Routine Neurological Exam Neurological: Present alert, oriented X3, moving all extremities, vision grossly intact, hearing grossly intact and normal speech; Absent sensory deficit or motor deficit Routine Psychiatric Exam Psychiatric: Present normal thought process and cooperative Assessment and Plan *Assessment and plan (1) Sepsis: Status: Acute Category: Medical Code(s): A41.9 - Sepsis, unspecified organism (2) Acute respiratory failure with hypoxia and hypercapnia: Status: Acute Category: Medical Code(s): J96.01 - Acute respiratory failure with hypoxia; J96.02 - Acute respiratory failure with hypercapnia (3) Pneumonia: Status: Acute Category: Medical Code(s): J18.9 - Pneumonia, unspecified organism (4) NSTEMI (non-ST elevated myocardial infarction): Status: Acute Category: Medical Code(s): I21.4 - Non-ST elevation (NSTEMI) myocardial infarction (5) JASS (acute kidney injury): Status: Acute Category: Medical Code(s): N17.9 - Acute kidney failure, unspecified (6) Schizophrenia: Status: Acute Category: Medical Code(s): F20.9 - Schizophrenia, unspecified (7) Encephalopathy: Status: Acute Category: Medical Code(s): G93.40 - Encephalopathy, unspecified Plan
--- NOTE | 2022-10-15 14:32 | PC.NURSE ---
pt pulled out iv in hand. this rn edicated pt on need to place new iv for abx. pt refused. will try again later.
--- NOTE | 2022-10-15 15:28 | PC.NURSE ---
pt still refusing iv insertion
--- NOTE | 2022-10-15 17:37 | PC.NURSE ---
tolerating 4lnc well. has ambulated multiple times this shift. refuses placement of new iv, md hernandez made aware. no acute changes
[2022-10-16] VITALS (11 sets, daily range): BP systolic 114–145; BP diastolic 58–80; PULSE 78–104; RESP 17–22; TEMP 36.6–37.2; O2SAT 82–99; BMI 17.6
--- NOTE | 2022-10-16 03:53 | PC.NURSE ---
Pt A/O x1. Pt has continued to refuse IV access. Pt has been getting up to BR standby assist to BR, tolerating well. Pt on 4 L nc, sats >90%. Bed alarm in place for safety.
--- NOTE | 2022-10-16 06:00 | XR_ITS ---
PROCEDURE INFORMATION: Exam: XR Chest Exam date and time: 10/16/2022 6:05 AM Age: 62 years old Clinical indication: Fever; Additional info: Pna TECHNIQUE: Imaging protocol: Radiologic exam of the chest. Views: 1 view. COMPARISON: CR XR CHEST PORTABLE 10/12/2022 10:49 AM FINDINGS: Lungs: Prominent lung markings/peribronchial thickening with patchy airspace opacities bilaterally. Pleural spaces: Skin folds simulating LEFT-sided pneumothorax. Heart/Mediastinum: Mild cardiomegaly with mild central pulmonary vascular congestion. Bones/joints: Chronic degenerative changes in the visualized spine. IMPRESSION: 1. Findings suspicious for multifocal pneumonia. 2. Skin folds simulating LEFT-sided pneumothorax. Recommend repeat examination.
[2022-10-16 06:29] LABS: Basophils # 0.1 K/mm3 (0-0.2); Basophils % 0.7 % (0.1-2.0); Eosinophils # 0.6 K/mm3 (0.0-0.4); Eosinophils % 4.7 % (0.1-12.0); Hemoglobin 13.2 g/dL (14.1-18.0); Lymphocytes # 1.6 K/mm3 (0.7-4.5); Lymphocytes % 13.2 % (10-50); Mean Corpuscular HGB Conc 30.6 g/dL (31.8-35.4); Mean Corpuscular Hemoglobin 31.9 pg (27.0-31.2); Mean Corpuscular Volume 104.2 fl (80-94); Mean Platelet Volume 7.9 fl (7.4-10.4); Monocytes # 0.7 K/mm3 (0.1-1.0); Monocytes % 6.2 % (1.7-9.3); Neutrophils % 75.2 % (37.0-80.0); Platelet Count 486 K/mm3 (142-424); Red Blood Count 4.13 M/mm3 (4.60-6.20); Red Cell Distribution Width 14.9 % (11.5-17.5)
[2022-10-16 06:34] LABS: Blood Urea Nitrogen 13 mg/dl (9-20); Calcium 8.3 mg/dl (8.4-10.2); Creatinine Clearance Estimated 94 mL/min (50-200); Estimated Glomerular Filt Rate 137 ml/min (>60); GFR (African American) 166 ML/MIN (>60); Glucose 102 mg/dl (74-100)
[2022-10-16 06:47] LABS: Chloride 92 mmol/L (98-107); Potassium 3.7 mmoL/L (3.5-5.1); Sodium 133 mmol/L (136-145)
[2022-10-16 06:59] LABS: Anion Gap 5.7 mEq/L (5-15); Carbon Dioxide 39 mmol/L (22.0-30.0)
--- NOTE | 2022-10-16 09:40 | EXP.PULM.PN ---
Subjective *Date: 10/16/22 *Time: 10:24 Interval history: No acute respiratory vents over the weekend. Patient denies any new respiratory complaints. Pulmonology Exam Inpatient Vital signs and Labs for Last 24 Hours: Temp Pulse Resp BP Pulse Ox FiO2 98.4 F 104 H 20 131/77 93 L 36 10/16/22 08:00 10/16/22 08:00 10/16/22 08:00 10/16/22 08:00 10/16/22 08:00 10/15/22 18:56 Laboratory Results - last 24 hr 10/16/22 05:33: WBC 12.0 H, RBC 4.13 L, Hgb 13.2 L, Hct 43.0, MCV 104.2 H, MCH 31.9 H, MCHC 30.6 L, RDW 14.9, Plt Count 486 H, MPV 7.9, Neut % (Auto) 75.2, Lymph % (Auto) 13.2, [place] % (Auto) 6.2, Eos % (Auto) 4.7, Baso % (Auto) 0.7, Neut # (Auto) 9.0 H, Lymph # (Auto) 1.6, [place] # (Auto) 0.7, Eos # (Auto) 0.6 H, Baso # (Auto) 0.1 10/16/22 05:33: Sodium 133 L, Potassium 3.7, Chloride 92 L, Carbon Dioxide 39 H, Anion Gap 5.7, BUN 13, Creatinine 0.60 L, Estimated Creat Clear 94, Estimated GFR 137, Est GFR ( Amer) 166, Glucose 102 H, Calcium 8.3 L I & O for Labs for Last 24 Hours: Intake & Output 10/13/22 10/14/22 10/15/22 10/16/22 23:59 23:59 23:59 23:59 Intake Total 480 / 480 1190 / 1290 1280 / 1280 120 / 120 Output Total 0 / 0 0 / 0 0 / 0 Balance 480 / 480 1190 / 1290 1280 / 1280 120 / 120 Weight 115 lb 9 oz 110 lb 8 oz 111 lb 3 oz 112 lb 1.6 oz Microbiology Reports for the Last 24 Hours: Microbiology 10/09/22 14:47 Blood Blood Culture - Preliminary NO GROWTH AFTER 48 HOURS 10/09/22 14:47 Blood Blood Culture - Preliminary NO GROWTH AFTER 48 HOURS Constitutional: Present moderate distress Head: Present normocephalic and atraumatic ENT: Present normal exam, normal oropharynx and mucous membranes moist Neck: Present normal inspection and full ROM Respiratory: Present prolonged expiratory phase, respiratory distress and rhonchi; Absent wheezes, diminished air movement or able to speak in complete sentences Cardiac: Present S1/S2, Tachycardia and radial pulses present GI: Present soft and distention; Absent tenderness or guarding Skin: Present intact; Absent cyanosis or jaundice Neuro: Present awake; Absent alert or oriented x 3 Extremities: Present normal inspection; Absent clubbing or cyanosis Psychiatric: Present normal affect and cooperative Assessment and Plan *Assessment and plan (1) Acute respiratory failure with hypoxia and hypercapnia: Status: Acute Category: Medical Code(s): J96.01 - Acute respiratory failure with hypoxia; J96.02 - Acute respiratory failure with hypercapnia (2) Pneumonia: Status: Acute Category: Medical Code(s): J18.9 - Pneumonia, unspecified organism Plan Mr. Abrams is a 62-year-old male prior history of tach ongoing tobacco abuse, schizophrenia hypertension CAD presented to the hospital with 3 to 4-day history of fevers and worsening respiratory distress upon admission patient found to be in hypoxic respiratory failure, altered mentation eventually needing high flow nasal cannula and BiPAP and pulmonary was called for further evaluation. #Acute hypoxic and hypercarbic respiratory failure: #Pneumonia History of tobacco abuse. Presented with worsening respiratory distress and altered mentation. Initial pH was 7.36 cannot explain patient's altered mentation especially with PCO2 54.6. CT head admission no acute findings Chest x-ray admission bilateral patchy airspace disease right greater than left. X-ray also concerning for increasing interstitial markings. Significant leukocytosis on admission. Lactate from this morning within normal limits. On admission - Patient initiated on vancomycin and cefepime as per sepsis protocol pending cultures. Patient also received 2 g of magnesium upon admission, post infusion magnesium was at 3.0. Patient clinical status continued to improve and was eventually weaned to nasal cannula. ABG on room air after being on nasal cannula for greater than 8 h
--- NOTE | 2022-10-16 09:41 | XR_ITS ---
FINAL REPORT CLINICAL HISTORY: Abnormal CXR COMPARISON: Earlier the same day FINDINGS: A single portable view of the chest was obtained. The heart size and pulmonary vascularity are within normal limits. The mediastinum is within normal limits. There is persistent mild bibasilar atelectasis or pneumonia. The bony thorax is intact. IMPRESSION: Persistent mild bibasilar atelectasis or pneumonia. Reviewed, Interpreted and Dictated by Jim Urbina III, MD Transcribed by Mariajose Casillas Authenticated and [facility]
--- NOTE | 2022-10-16 13:01 | EXP.DC.SUM ---
General Admission date:: 10/09/22 Exam Data for Last 24 hours Vital signs and Labs for Last 24 Hours: Temp Pulse Resp BP Pulse Ox FiO2 98.4 F 104 H 20 131/77 82 L 36 10/16/22 08:00 10/16/22 08:00 10/16/22 08:00 10/16/22 08:00 10/16/22 11:11 10/15/22 18:56 Laboratory Results - last 24 hr 10/16/22 05:33: WBC 12.0 H, RBC 4.13 L, Hgb 13.2 L, Hct 43.0, MCV 104.2 H, MCH 31.9 H, MCHC 30.6 L, RDW 14.9, Plt Count 486 H, MPV 7.9, Neut % (Auto) 75.2, Lymph % (Auto) 13.2, [place] % (Auto) 6.2, Eos % (Auto) 4.7, Baso % (Auto) 0.7, Neut # (Auto) 9.0 H, Lymph # (Auto) 1.6, [place] # (Auto) 0.7, Eos # (Auto) 0.6 H, Baso # (Auto) 0.1 10/16/22 05:33: Sodium 133 L, Potassium 3.7, Chloride 92 L, Carbon Dioxide 39 H, Anion Gap 5.7, BUN 13, Creatinine 0.60 L, Estimated Creat Clear 94, Estimated GFR 137, Est GFR ( Amer) 166, Glucose 102 H, Calcium 8.3 L I & O for Last 24 hours: Intake & Output 10/13/22 10/14/22 10/15/22 10/16/22 23:59 23:59 23:59 23:59 Intake Total 480 / 480 1190 / 1290 1280 / 1280 120 / 120 Output Total 0 / 0 0 / 0 0 / 0 Balance 480 / 480 1190 / 1290 1280 / 1280 120 / 120 Weight 52.418 kg 50.122 kg 50.434 kg 50.848 kg Results Data Completed and Pending Labs on day of discharge: Labs from last 24 hours 10/16/22 10/16/22 05:33 05:33 WBC 12.0 H RBC 4.13 L Hgb 13.2 L Hct 43.0 MCV 104.2 H MCH 31.9 H MCHC 30.6 L RDW 14.9 Plt Count 486 H MPV 7.9 Neut % (Auto) 75.2 Lymph % (Auto) 13.2 [place] % (Auto) 6.2 Eos % (Auto) 4.7 Baso % (Auto) 0.7 Neut # (Auto) 9.0 H Lymph # (Auto) 1.6 [place] # (Auto) 0.7 Eos # (Auto) 0.6 H Baso # (Auto) 0.1 Sodium 133 L Potassium 3.7 Chloride 92 L Carbon Dioxide 39 H Anion Gap 5.7 BUN 13 Creatinine 0.60 L Estimated Creat Clear 94 Estimated GFR 137 Est GFR ( Amer) 166 Glucose 102 H Calcium 8.3 L DS: Diagnosis Discharge Diagnosis (1) Acute respiratory failure with hypoxia and hypercapnia: Status: Acute (2) Pneumonia: Status: Acute Meds Home Medications and Allergies Home Medications Medication Instructions Recorded Confirmed Type aspirin 81 mg chewable tablet 81 mg PO DAILY Heart health 10/09/22 10/09/22 History chlorpromazine 200 mg tablet 200 mg PO HS Anxiety 10/09/22 10/09/22 History metoprolol succinate 100 mg 100 mg PO DAILY High blood pressure 10/09/22 10/09/22 History tablet,extended release 24 hr mirtazapine 45 mg tablet 45 mg PO HS Depression 10/09/22 10/09/22 History olanzapine 20 mg tablet 20 mg PO HS Depression 10/09/22 10/09/22 History omeprazole 40 mg capsule,delayed 40 mg PO DAILY acid reflux 10/09/22 10/09/22 History release oxcarbazepine 300 mg tablet 300 mg PO BID Seizure Control 10/09/22 10/09/22 History trazodone 100 mg tablet 100 mg PO HS Sleep 10/09/22 10/09/22 History umeclidinium 62.5 mcg-vilanterol 1 inh inhalation DAILY Breathing 10/09/22 10/09/22 History 25 mcg/actuation powdr for problems inhalation (Anoro Ellipta) acetaminophen 500 mg tablet 500 mg PO Q6H PRN Pain 10/10/22 10/10/22 History (Acetaminophen Extra Strength) bismuth subsalicylate 262 mg/15 mL 524 mg PO Q2HP PRN Diarrhea 10/10/22 10/10/22 History oral suspension clonazepam 1 mg tablet 1 mg PO HS Anxiety 10/10/22 10/10/22 History diphenhydramine HCl 25 mg capsule 25 mg PO QIDP PRN allergies 10/10/22 10/10/22 History (Banophen) guaifenesin 100 mg/5 mL oral 200 mg PO Q4HP PRN Cough 10/10/22 10/10/22 History liquid (Siltussin SA) ipratropium 20 mcg-albuterol 100 1 puff inhalation Q6HP PRN 10/10/22 10/10/22 History mcg/actuation mist for inhalation breathing problems (Combivent Respimat) nicotine 21 mg/24 hr daily 1 patch transdermal DAILYP PRN 10/10/22 10/10/22 History transdermal patch smoking cessation sertraline 100 mg tablet 100 mg PO DAILY Depression 10/10/22 10/10/22 History ipratropium 0.5 mg-albuterol 3 mg 3 ml inhalation Q6HP PRN Short
--- NOTE | 2022-10-16 15:40 | PC.NURSE ---
report from ZBIGNIEW Jin
--- NOTE | 2022-10-16 17:09 | EXP.PN ---
Subjective *Date: 10/16/22 *Time: 17:09 Interval history: Date of service October 16, 2022 The patient reports no acute events overnight. Nursing staff report that he remains afebrile with stable vital signs and still requiring 2 L to maintain appropriate oxygen saturations. Exam Data for Last 24 hours Vital signs and Labs for Last 24 Hours: Temp Pulse Resp BP Pulse Ox FiO2 98.9 F 92 H 20 119/77 91 L 36 10/16/22 16:00 10/16/22 16:00 10/16/22 16:00 10/16/22 16:00 10/16/22 16:00 10/15/22 18:56 Laboratory Results - last 24 hr 10/16/22 05:33: WBC 12.0 H, RBC 4.13 L, Hgb 13.2 L, Hct 43.0, MCV 104.2 H, MCH 31.9 H, MCHC 30.6 L, RDW 14.9, Plt Count 486 H, MPV 7.9, Neut % (Auto) 75.2, Lymph % (Auto) 13.2, [place] % (Auto) 6.2, Eos % (Auto) 4.7, Baso % (Auto) 0.7, Neut # (Auto) 9.0 H, Lymph # (Auto) 1.6, [place] # (Auto) 0.7, Eos # (Auto) 0.6 H, Baso # (Auto) 0.1 10/16/22 05:33: Sodium 133 L, Potassium 3.7, Chloride 92 L, Carbon Dioxide 39 H, Anion Gap 5.7, BUN 13, Creatinine 0.60 L, Estimated Creat Clear 94, Estimated GFR 137, Est GFR ( Amer) 166, Glucose 102 H, Calcium 8.3 L I & O for Last 24 hours: Intake & Output 10/13/22 10/14/22 10/15/22 10/16/22 23:59 23:59 23:59 23:59 Intake Total 480 / 480 1190 / 1290 1280 / 1280 720 / 720 Output Total 0 / 0 0 / 0 0 / 0 0 / 0 Balance 480 / 480 1190 / 1290 1280 / 1280 720 / 720 Weight 52.418 kg 50.122 kg 50.434 kg 50.848 kg Constitutional Constitutional: no acute distress, thin, chronically ill appearing, disheveled and cooperative *Routine HEENT Exam Head: Present normocephalic Eye: Present EOMI and PERRL ENT: Present mucous membranes moist *Routine Neck Exam Neck: Present supple; Absent lymphadenopathy *Routine Respiratory Exam Respiratory: Present rhonchi, wheezes, normal respiratory effort and symmetric chest movement *Routine Cardiovascular Exam Cardiovascular: Present RRR *Routine Abdominal Exam Abdominal: Present soft and normoactive bowel sounds; Absent tenderness *Routine Extremities Exam Extremities: Absent cyanosis, clubbing or edema *Routine Skin Exam Skin: Present warm; Absent rash *Routine Neurological Exam Neurological: Present alert, oriented X3, moving all extremities, vision grossly intact, hearing grossly intact and normal speech; Absent sensory deficit or motor deficit Routine Psychiatric Exam Psychiatric: Present normal thought process and cooperative Assessment and Plan *Assessment and plan (1) Sepsis: Status: Acute Category: Medical Code(s): A41.9 - Sepsis, unspecified organism (2) Acute respiratory failure with hypoxia and hypercapnia: Status: Acute Category: Medical Code(s): J96.01 - Acute respiratory failure with hypoxia; J96.02 - Acute respiratory failure with hypercapnia (3) Pneumonia: Status: Acute Category: Medical Code(s): J18.9 - Pneumonia, unspecified organism (4) NSTEMI (non-ST elevated myocardial infarction): Status: Acute Category: Medical Code(s): I21.4 - Non-ST elevation (NSTEMI) myocardial infarction (5) JASS (acute kidney injury): Status: Acute Category: Medical Code(s): N17.9 - Acute kidney failure, unspecified (6) Schizophrenia: Status: Acute Category: Medical Code(s): F20.9 - Schizophrenia, unspecified (7) Encephalopathy: Status: Acute Category: Medical Code(s): G93.40 - Encephalopathy, unspecified Plan Mr. Abrams is a 62-year-old male who is a resident of a local Assisted Living Facility who presented with fevers, lethargy, hypoxia, Tachycardia, Tachypnea. Admitted for initially hypoxemic respiratory failure but developed worsening hypercarbia. Progressed to BiPAP first night of admission. Pulmonology consulted, appreciate their recommendations. Problems addressed as follows: Sepsis (POA) Tachypnea, tachycardia, leukocytoses, source on imaging Resolved IV fluid resuscitation with
[2022-10-17 04:00] VITALS: BP 116/63; PULSE 85; RESP 18; TEMP 36.8; O2SAT 94; BMI 17.3
--- NOTE | 2022-10-17 04:00 | PC.NURSE ---
no changes from previous assessment, vss, no acute distress, 02 at 2L pnc with 02 sats 92-94%, pt with 02 sats 82% on room air, pt is alert to name and birthdate only, bed alarm in place, pt slept most of the night, no other issues or concerns at this time, bed alarm in place, pt without iv access in which md's are aware.
[2022-10-17 06:11] VITALS: O2SAT 82
--- NOTE | 2022-10-17 07:35 | EXP.DC.SUM ---
General Admission date:: 10/09/22 Discharge date: 10/17/22 HPI HPI HPI: Mr. Abrams is a 62-year-old male who is a resident of a local Assisted Living Facility, [facility].? He has a past medical history per chart review of Chronic Tobacco Use, history of Covid Pneumonia, history of Admissions for acute hypoxic respiratory failure, Schizophrenia, HTN and CAD. He presented to [facility] due to a 3-4 day history of fevers.? On evaluation of the patient on admission to the floor he is lethargic and unable to answer subjective questioning. In the ER on admission he was noted to be hypoxic, oxygen saturation on admission was noted to be 62 on 2L, also in the ER he was documented to be 82% on 15L.? ABG obtained on admission showed a pH of 7.36, pCO2 54.6, pO2 65.3, HCO3 30.4.? On arrival to the Medical Surgical unit he was on 30L 80% FiO2 and per [employer] his SpO2 was 89%.? ABG was obtained upon arrival to the floor, pH is 7.25, pCO2 65.2, pO2 70.9, HCO3 27.9, spO2 91%.? In the ER on admission the patient had a CBC that showed WBC 20.6, Temperature was 103.6, HR was 154, RR was 41.? Cxray showed new bilateral interstitial opacities with peripheral airspace disease on the right.? Troponin was elevated in the ER at 0.08.? EKG obtained on the floor showed ST with Rate of [address] segment elevation or depression. The patient will be admitted with initial impression:? Sepsis, Acute Hypoxic and Hypercapnic Respiratory Failure, Acute Respiratory Acidosis, Pneumonia, NSTEMI, JASS. The patient was placed on the step-down unit for close monitoring, ABG will be repeated on the BIPAP after 2 hours.? Pulmonary will be consulted for the am.? Hospital Course Hospital Course Hospital Course: Mr. Abrams is a 62-year-old male prior history of COPD with ongoing tobacco abuse, schizophrenia, hypertension, CAD who presented to the hospital with 3 to 4-day history of fevers and worsening respiratory distress upon admission patient found to be in hypoxemic and hypercapnic respiratory failure. Was encephalopathic. Initially treated with BiPAP. Pulmonology consulted. Patient has shown gradual improvement through course of admission. Stable for discharge to senior living facility for continued rehab. Problems addressed as follows: #Acute hypoxic and hypercarbic respiratory failure: #Pneumonia # Sepsis Presented with worsening respiratory distress and altered mentation.? Initial pH was 7.36, worsened with increased CO2 and became more encephalopathic. Pulmonology was consulted to assist with BiPAP management as patient requiring significant support to ventilate appropriately. CT head on admission obtained with no acute abnormalities. Chest x-ray on admission noted to have bilateral patchy airspace disease right greater than left. Responded well to noninvasive positive pressure ventilation. Antibiotics were broadened initially to vancomycin and cefepime for sepsis. Showed gradual improvement through hospitalization with his severe hypercarbia and improvement in pneumonia. Completed 7 days of antibiotics. No indication for further antibiotics at this time. Patient is continuing to require supplemental oxygen at 2 L to maintain saturations between 90 and 95%. Initiated on Trelegy inhaler. Plan to continue DuoNebs as needed every 6 hours. Will need to follow-up with cardiology as an outpatient in the next month. #NSTEMI, resolved Present on admission. Cardiology consulted. Supply/demand mismatch. Echo obtained during admission showing EF of 55%. Initially monitored on telemetry. Patient was symptom-free. Plan to continue aspirin Plavix dual antiplatelet therapy for 21 days. Decrease to aspirin daily thereafter. # JASS Present on admission. Creatinine normalized to baseline. Monitored throughout admission. Improvement with fluid resuscitation and treatment of sepsis. Repeat labs in a week for close following #Schizophrenia, POA, stable # Ence[place]
[2022-10-17 07:44] VITALS: O2SAT 93
[2022-10-17 08:00] VITALS: BP 161/79; PULSE 93; RESP 19; TEMP 36.6; O2SAT 97
[2022-10-17 09:57] LABS: Coronavirus 19, PCR Not Detected (NotDetected); Influenza A, PCR Not Detected (NotDetected); Influenza B, PCR Not Detected (NotDetected)
--- NOTE | 2022-10-17 10:14 | EXP.PULM.PN ---
Subjective *Date: 10/17/22 *Time: 10:14 Interval history: No acute respiratory events overnight. Patient denies any new complaint Pulmonology Exam Inpatient Vital signs and Labs for Last 24 Hours: Temp Pulse Resp BP Pulse Ox FiO2 98 F 93 H 19 161/79 H 97 36 10/17/22 08:00 10/17/22 08:00 10/17/22 08:00 10/17/22 08:00 10/17/22 08:00 10/15/22 18:56 I & O for Labs for Last 24 Hours: Intake & Output 10/14/22 10/15/22 10/16/22 10/17/22 23:59 23:59 23:59 23:59 Intake Total 1190 / 1290 1280 / 1280 1080 / 1080 240 / 240 Output Total 0 / 0 0 / 0 0 / 0 0 / 0 Balance 1190 / 1290 1280 / 1280 1080 / 1080 240 / 240 Weight 110 lb 8 oz 111 lb 3 oz 112 lb 1.6 oz 110 lb 9 oz Microbiology Reports for the Last 24 Hours: Microbiology 10/09/22 14:47 Blood Blood Culture - Preliminary NO GROWTH AFTER 48 HOURS 10/09/22 14:47 Blood Blood Culture - Preliminary NO GROWTH AFTER 48 HOURS Constitutional: Present no acute distress Head: Present normocephalic and atraumatic ENT: Present normal exam, normal oropharynx and mucous membranes moist Neck: Present normal inspection and full ROM Respiratory: Present rhonchi; Absent prolonged expiratory phase, respiratory distress, wheezes, diminished air movement or able to speak in complete sentences Cardiac: Present S1/S2, Tachycardia and radial pulses present GI: Present soft and distention; Absent tenderness or guarding Skin: Present intact; Absent cyanosis or jaundice Neuro: Present alert, awake and oriented x 3 Extremities: Present normal inspection; Absent clubbing or cyanosis Psychiatric: Present normal affect and cooperative Assessment and Plan *Assessment and plan (1) Acute respiratory failure with hypoxia and hypercapnia: Status: Acute Category: Medical Code(s): J96.01 - Acute respiratory failure with hypoxia; J96.02 - Acute respiratory failure with hypercapnia (2) Pneumonia: Status: Acute Category: Medical Code(s): J18.9 - Pneumonia, unspecified organism Plan Mr. Abrams is a 62-year-old male prior history of tach ongoing tobacco abuse, schizophrenia hypertension CAD presented to the hospital with 3 to 4-day history of fevers and worsening respiratory distress upon admission patient found to be in hypoxic respiratory failure, altered mentation eventually needing high flow nasal cannula and BiPAP and pulmonary was called for further evaluation. #Acute hypoxic and hypercarbic respiratory failure: #Pneumonia History of tobacco abuse. Presented with worsening respiratory distress and altered mentation. Initial pH was 7.36 cannot explain patient's altered mentation especially with PCO2 54.6. CT head admission no acute findings Chest x-ray admission bilateral patchy airspace disease right greater than left. X-ray also concerning for increasing interstitial markings. Significant leukocytosis on admission. Lactate from this morning within normal limits. On admission - Patient initiated on vancomycin and cefepime as per sepsis protocol pending cultures. Patient also received 2 g of magnesium upon admission, post infusion magnesium was at 3.0. Patient clinical status continued to improve and was eventually weaned to nasal cannula. ABG on room air after being on nasal cannula for greater than 8 hours did not show any evidence of severe hypercarbic respiratory failure, with a pH of 7.37 and PCO2 48.5. He completed 4-day course of vancomycin and 7 day course of cefepime upon this hospital admission. Blood and sputum cultures no growth. Chest x-ray continues to improve along with leukocytosis and oxygen requirements, weaned eventually to 2 L nasal cannula with disease, see requirements. Repeat chest x-ray from 10/16/2022 showed airspace disease improved from prior. Patient is being discharged today to [facility]. We will follow the patient as scheduled in 4 to 6 weeks with a PFT and walk testing. Sandy
[2022-10-17 11:54] VITALS: BP 139/81; PULSE 75; RESP 19; TEMP 36.6; O2SAT 100
--- NOTE | 2022-10-17 12:05 | PC.NURSE ---
Report called to [facility], spoke to ZBIGNIEW Grajeda
--- NOTE | 2022-10-18 13:30 | CARE MANAGER ---
Contacted [facility]. They state patient is doing well. he is still 88% on RA and the nurse keeps reminding him to put his Oxygen on. They deny any questions or concerns.
== END 2022-10-17 12:55 | DRG 871 ==
LOC: ER 17:06 → 2ND 18:16
PROVIDERS: Family Medicine; Internal Medicine Pulmonary Disease; Nurse Practitioner Family; Admitting Provider Internal Medicine Adolescent Medicine; Emergency Provider Emergency Medicine; PCP Emergency Medicine; Visit Provider Internal Medicine Adolescent Medicine
DX: J18.9 Pneumonia, unspecified organism (principal); A41.9 Sepsis, unspecified organism; I21.A1 Myocardial infarction type 2; J96.01 Acute respiratory failure with hypoxia; J96.02 Acute respiratory failure with hypercapnia; N17.9 Acute kidney failure, unspecified; J44.0 Chronic obstructive pulmonary disease with (acute) lower respiratory infection; E87.20 Acidosis, unspecified; G93.40 Encephalopathy, unspecified; F20.9 Schizophrenia, unspecified; I25.118 Atherosclerotic heart disease of native coronary artery with other forms of angina pectoris; J20.9 Acute bronchitis, unspecified; Z79.899 Other long term (current) drug therapy; F17.210 Nicotine dependence, cigarettes, uncomplicated; Z79.82 Long term (current) use of aspirin; Z86.16 Personal history of COVID-19
CPT/HCPCS: 36415; 71045; 80048; 80053; 80061; 80076; 80202; 81001; 82607; 82803; 83605; 83735; 83880; 84145; 84484; 85007; 85025; 85378; 85610; 85730; 87040; 87070; 87205; 87581; 87632; 87641; 87798; 87899; 92610; 93005; 93306; 94640; 94660; 94761; 97162; 97165; 99291; C9803; J0131; J0456; J0696; J3370; J3475; U0003; U0005

== ENCOUNTER 2023-10-21 15:00 | Inpatient (IN) | payer MEDICARE, BC, SELFPAY ==
[2023-10-21] VITALS (13 sets, daily range): BP systolic 110–200; BP diastolic 52–111; PULSE 75–104; RESP 22–30; TEMP 37.1–38.6; O2SAT 75–93; BMI 18.2; BMI 18.7
--- NOTE | 2023-10-21 15:11 | XR_ITS ---
PROCEDURE INFORMATION: Exam: XR Chest Exam date and time: 10/21/2023 3:15 PM Age: 63 years old Clinical indication: Dyspnea TECHNIQUE: Imaging protocol: Radiologic exam of the chest. Views: 1 view. COMPARISON: CR XR CHEST PORTABLE 10/16/2022 10:02 AM FINDINGS: Lungs: Focal consolidation at the right lung base. Faint airspace disease also noted at the left lung base. Pleural spaces: Unremarkable. No pleural effusion. No pneumothorax. Heart/Mediastinum: Unremarkable. No cardiomegaly. Bones/joints: Unremarkable. IMPRESSION: Bilateral pneumonia much more severe on the right.
--- NOTE | 2023-10-21 15:12 | CT_ITS ---
PROCEDURE INFORMATION: Exam: CT Head Without Contrast Exam date and time: 10/21/2023 2:26 PM Age: 63 years old Clinical indication: Altered mental status/memory loss; Additional info: AMS TECHNIQUE: Imaging protocol: Computed tomography of the head without contrast. Radiation optimization: All CT scans at this facility use at least one of these dose optimization techniques: automated exposure control; mA and/or kV adjustment per patient size (includes targeted exams where dose is matched to clinical indication); or iterative reconstruction. COMPARISON: CT HEAD/BRAIN WO CON 04/13/2022 8:43 AM FINDINGS: Brain: There is age-appropriate cerebral atrophy. Moderate changes of chronic small vessel ischemia within the cerebral white matter regions bilaterally. No acute infarct or hemorrhage. No mass or midline shift. Cerebral ventricles: No ventriculomegaly. Paranasal sinuses: Visualized sinuses are unremarkable. No fluid levels. Mastoid air cells: Visualized mastoid air cells are well aerated. Bones/joints: Unremarkable. No acute fracture. Soft tissues: Unremarkable. IMPRESSION: No acute intracranial abnormality.
--- NOTE | 2023-10-21 15:14 | HMH.EDGENADL ---
Discharge Plan Disposition Patient Disposition: Admitted Prescriptions Prescriptions: No Action ipratropium-albuterol 0.5 mg-3 mg(2.5 mg base)/3 mL solution for nebulization 3 ml inhalation QID PRN (Reason: shortness of breath or wheezing) Qty: 90 3RF albuterol sulfate 90 mcg/actuation HFA aerosol inhaler 2 inh inhalation QID PRN (Reason: shortness of breath or wheezing) 90 Days Qty: 8.5 2RF Trelegy Ellipta 100-62.5-25 mcg blister with device 1 inh inhalation DAILY 90 Days Qty: 90 3RF clonazepam 1 mg tablet 1 mg PO QHS Qty: 30 5RF metoprolol succinate 100 mg tablet extended release 24 hr 100 mg PO DAILY oxcarbazepine 300 mg tablet 300 mg PO BID omeprazole 40 mg capsule,delayed release(DR/EC) 40 mg PO DAILY trazodone 100 mg tablet 100 mg PO HS mirtazapine 45 mg tablet 45 mg PO HS aspirin 81 mg tablet,chewable 81 mg PO DAILY chlorpromazine 200 mg tablet 200 mg PO HS olanzapine 20 mg tablet 20 mg PO HS sertraline 100 mg tablet 100 mg PO DAILY acetaminophen [Acetaminophen Extra Strength] 500 mg Tablet 500 mg PO Q6H PRN (Reason: Pain) guaifenesin [Siltussin SA] 100 mg/5 mL Liquid 200 mg PO Q4HP PRN (Reason: Cough) diphenhydramine HCl [Banophen] 25 mg Capsule 25 mg PO QIDP PRN (Reason: allergies) bismuth subsalicylate 262 mg/15 mL Suspension 524 mg PO Q2HP PRN (Reason: Diarrhea) Rx Instructions: do not exceed 8 doses in a 24 hour period nicotine 21 mg/24 hr Patch 24 Hour 1 patch transdermal DAILYP PRN (Reason: smoking cessation ) clopidogrel [Plavix] 75 mg tablet 75 mg PO DAILY 21 Days Qty: 21 0RF Clinical Impressions Clinical Impression: CAP (community acquired pneumonia), Hypoxic respiratory failure, Severe sepsis, Hyponatremia Instructions Patient Instructions: DI for Altered Mental Status Discharge ED Provider: Renaldo Clifton General Adult HPI General Chief complaint: Altered Mental Status Stated complaint: ams Time Seen by Provider: 10/21/23 15:08 Mode of Arrival: EMS Source of Information: EMS Limitations: Altered Mental Status Description of Symptoms (Recalled from ER Triage Doc. by RN): ams,low saturation,fever History of Present Illness HPI narrative: Patient is a 63-year-old male who is brought in by EMS from [facility] encephalopathic and hypoxic no further history is able to be obtained from the patient due to his clinical status the remainder of history is from old notes which include COPD schizophrenia history of pneumonia coronary artery disease and smoking. Related Data Home Medications Medication Instructions Recorded Confirmed aspirin 81 mg chewable tablet 81 mg PO DAILY Heart health 10/09/22 11/21/22 chlorpromazine 200 mg tablet 200 mg PO HS Anxiety 10/09/22 11/21/22 metoprolol succinate 100 mg 100 mg PO DAILY High blood pressure 10/09/22 11/21/22 tablet,extended release 24 hr mirtazapine 45 mg tablet 45 mg PO HS Depression 10/09/22 11/21/22 olanzapine 20 mg tablet 20 mg PO HS Depression 10/09/22 11/21/22 omeprazole 40 mg capsule,delayed 40 mg PO DAILY acid reflux 10/09/22 11/21/22 release oxcarbazepine 300 mg tablet 300 mg PO BID Seizure Control 10/09/22 11/21/22 trazodone 100 mg tablet 100 mg PO HS Sleep 10/09/22 11/21/22 acetaminophen 500 mg tablet 500 mg PO Q6H PRN Pain 10/10/22 11/21/22 (Acetaminophen Extra Strength) bismuth subsalicylate 262 mg/15 mL 524 mg PO Q2HP PRN Diarrhea 10/10/22 11/21/22 oral suspension diphenhydramine HCl 25 mg capsule 25 mg PO QIDP PRN allergies 10/10/22 11/21/22 (Banophen) guaifenesin 100 mg/5 mL oral 200 mg PO Q4HP PRN Cough 10/10/22 11/21/22 liquid (Siltussin SA) nicotine 21 mg/24 hr daily 1 patch transdermal DAILYP PRN 10/10/22 11/21/22 transdermal patch smoking cessation sertraline 100 mg tablet 100 mg PO DAILY Depression 10/10/22 11/21/22 Previous Rx's Medication Instructions Recorded clopidogrel 75 mg tablet (Plavix) 75 mg PO DAILY 21 days #21 tabs 10/17/22 albuterol sulfate 90 mcg/actuation 2 inh inhalation QID PRN shortness 11/21/22 aerosol inhaler of breath or wheezing 90 days #8.5 grams fluticasone fur. 100 mcg-umeclid 1 inh inhalation DAILY 90 days #90 11/21/22 62.5 mcg-vilant 25 mcg ea inhalat.powder (Trelegy Ellipta) ipratropium 0.5 mg-albuterol 3 mg 3 ml inhalation QID PRN shortness 11/21/22 (2.5 mg base)/3 mL nebulization of breath or wheezing #90 mL soln clonazepam 1 mg tablet 1 mg PO QHS Anxiety #30 tabs 05/16/23 Allergies Allergy/AdvReac Type Severity Reaction Status Date / Time No Known Allergies Allergy Verified 11/21/22 13:07 [facility] Disclaimer: The information contained in this section may have been updated after the patient was seen, as this information can be updated by other users. Medical History (Updated 10/21/23 @ 15:43 by Renaldo Clifton MD) Cancer screening COPD mixed type Dyspnea on exertion Smoking greater than 30 pack years Coronary artery disease Hypertension Elevated troponin Elevated brain natriuretic peptide (BNP) level Elevated d-dimer Schizophrenia JASS (acute kidney injury) NSTEMI (non-ST elevated myocardial infarction) Respiratory acidosis Acute respiratory failure with hypoxia and hypercapnia Sepsis Pneumonia COPD (chronic obstructive pulmonary disease) with acute bronchitis Acute respiratory failure with hypoxia Pneumonia due to COVID-19 virus Chest pain Palpitations Anxiety Tobacco dependence syndrome Dyspnea Angina, class IV Abnormal stress test Surgical History (Updated 11/21/22 @ 13:08 by Marika John) No history of previous surgery Family History Other Poor historian Social History Smoking Status: Current every day smoker tobacco type: cigarettes alcohol intake: former substance use type: denies use current occupational status: disabled Travel in the last 8 weeks: None household members: other housing: assisted living facility lives independently: Yes marital status: single service: No ROS Obtained: Yes All systems reviewed & no additional complaints except as documented Physical Exam General General appearance: alert Comment: Patient is disheveled very dirty in appearance he is awake not in any significant distress Head Head exam: atraumatic Eye Eye exam: Present normal appearance and PERRL Respiratory Respiratory exam: Present normal lung sounds bilaterally and other (Oxygen saturation 75% on room air when placed on 5 L nasal cannula patient's saturations are in the low 90s no significant respiratory distress wheezing or accessory muscle use); Absent respiratory distress Cardiovascular Cardiovascular exam: Present tachycardia Abdominal Exam Abdominal exam: Present soft; Absent distention or tenderness Neurological Exam Neurological exam: Present alert and other (Nonfocal but unable to cooperate with a full neurologic exam); Absent oriented X3 Medical Decision Making Danial Inquiry Pt receiving controlled substance: No Vital Signs: 10/21/23 15:12 Temperature 101.4 F H Temperature Source Axillary Pulse Rate [Right Radial] 104 H Respiratory Rate 24 Blood Pressure [Right Arm] 200/111 H Blood Pressure Mean [Right Arm] 140 02 Sat by Pulse Oximetry 75 L Oxygen Delivery Method Room Air Lab Data Lab results reviewed: Yes I reviewed the patient's lab results. Lab Results 10/21/23 15:06: WBC 15.3 H, RBC 4.57 L, Hgb 10.8 L, Hct 37.1 L, MCV 81.2, MCH 23.7 L, MCHC 29.2 L, RDW 17.4, Plt Count 457 H, MPV 8.1, Neut % (Auto) 91.4 H, Lymph % (Auto) 3.4 L, Gr[place]gs % (Auto) 4.6, Eos % (Auto) 0.3, Baso % (Auto) 0.3, Neut # (Auto) 14.0 H, Lymph # (Auto) 0.5 L, Griggs # (Auto) 0.7, Eos # (Auto) 0.1, Baso # (Auto) 0.1, D-Dimer 0.61 H, Sodium 128 L, Potassium 4.4, Chloride 86 L, Carbon Dioxide 36 H, Anion Gap 10.4, BUN 12, Creatinine 0.90, Estimated Creat Clear 60, Estimated GFR 86, Est GFR ( Amer) 104, Glucose 107 H, Calcium 8.6, Total Bilirubin 0.5, AST 50, ALT 43, Alkaline Phosphatase 110, Total Protein 7.3, Albumin 4.2, Globulin 3.1, Albumin/Globulin Ratio 1.4 10/21/23 15:16: VBG pH 7.37, VBG pCO2 59.7 H, VBG pO2 36.7, VBG HCO3 33.9 H, VBG Total CO2 35.7 H, VBG O2 Saturation 66.9, VBG Base Excess 8.6 H, VBG Lactic Acid 1.9 10/21/23 15:06 10/21/23 15:06 Orders (Tests/Meds): ED MEDICATIONS Generic Name Dose Route Start Last Admin Trade Name Eduarda PRN Reason Stop Dose Admin Lactated Ringer's 1,000 mls @ 999 mls/hr 10/21/23 15:15 10/21/23 15:38 Lactated Ringer's 1000 Ml Bag IV 10/21/23 16:15 Not Given .Q1H1M [facility] Lactated Ringer's 2,050 mls @ 1,025 mls/hr 10/21/23 15:33 10/21/23 15:38 Lactated Ringer's 1000 Ml Bag 30 ml/kg infuse over 2 hr (2050 ml) 10/21/23 17:32 1,025 mls/hr IV Administration .Q2H ONE Piperacillin Sod/Tazobactam 50 mls @ 100 mls/hr 10/21/23 15:38 Sod 3.375 gm/ Sodium Chloride IV 10/21/23 16:07 ONCE ONE Azithromycin 500 mg/ Sodium 250 mls @ 250 mls/hr 10/21/23 15:39 Chloride IV 10/21/23 15:40 ONCE ONE Miscellaneous 1 each 10/21/23 15:45 Vancomycin Consult Request NOTAPPLIC 11/20/23 15:44 CONSULT PHARMACY [facility] ORDERS Category Date Time Status CT head/brain wo con Stat Cat Scan 10/21/23 15:12 Taken CXR --portable [XR chest portable] Stat Exams 10/21/23 15:11 Taken Ammonia Stat Lab 10/21/23 15:11 Ordered CBC w/Auto Diff [Complete Blood Count Auto Diff] Stat Lab 10/21/23 15:06 Results CMP [Comprehensive Metabolic Panel] Stat Lab 10/21/23 15:06 Results D-Dimer Stat Lab 10/21/23 15:06 Completed Ethanol [Ethyl Alcohol] Stat Lab 10/21/23 15:06 Received Lactate Venous Stat Lab 10/21/23 15:16 Completed Rapid PCR Covid and Flu A/B Stat Lab 10/21/23 15:06 Received TSH [Thyroid Stimulating Hormone] Stat Lab 10/21/23 15:06 Results Trop I [Troponin I] Stat Lab 10/21/23 15:06 Results Troponin I Q3H Lab 10/21/23 18:15 Ordered Troponin I Q3H Lab 10/21/23 21:15 Ordered UA [Urinalysis and Microscopic] Stat Lab 10/21/23 15:11 Ordered UDS [Drug Screen,Urine] Stat Lab 10/21/23 15:11 Ordered Blood Culture Stat Micro 10/21/23 15:06 ORD Venous Blood Gas Stat RT 10/21/23 15:16 Completed Tissue Perfus/Sepsis Re-Eval Sepsis Re-Evaluation Performed: Yes Date Performed: 10/21/23 Time Performed: 15:42 Medical Decision Narrative: 63-year-old acutely altered gentleman with hypoxia. Leading on the differential would be cardiopulmonary disease including heart failure pneumonia pulmonary embolism etc. Does not appear to be any significant distress aside from the hypoxia. He has a nonfocal neurologic exam will get a noncontrasted CT of his scan to evaluate for possible intracranial pathology such as subdural etc. Additionally we will get a venous blood gas to assess for possible hypercapnia. Further metabolic and infectious workup is being performed at the moment as well as toxicologic workup as well. Chest x-ray performed to person interpreted shows a right middle and right lower lobe consolidation consistent with pneumonia. Patient did have some vomit on his shirt to possible that he had some aspiration prior to this we will treat with bank Zosyn and azithromycin for broad-spectrum coverage. Cultures have been sent. Does have endorgan damage with hypoxemia. Was tachycardic febrile has leukocytosis all consistent with severe sepsis. He is on 5 L nasal cannula saturations in the 90s at this point. Hemodynamically he is stable. CT scan of the head performed which I personally interpreted shows no acute intracranial abnormality. Patient also has hyponatremia. Patient will need to be admitted for further evaluation and management. Critical Care Critical Care Time Critical Care Time: Yes Attestation: On , the high probability of a clinically significant, sudden or life threatening deterioration of the following system(s) required my full and direct attention, intervention and personal management. The time I documented below is in addition to time spent performing reported procedures but includes the following listed in this critical care notation. Total Time Total Critical Care Time: 35
[2023-10-21 15:23] LABS: Coronavirus 19, PCR Not Detected (NotDetected); Influenza A, PCR Not Detected (NotDetected); Influenza B, PCR Not Detected (NotDetected)
[2023-10-21 15:25] LABS: VBG Base Excess 8.6 mmol/L (-2.4-2.3); VBG HCO3 33.9 mmol/L (23-30); VBG Oxygen Saturation 66.9 % (50-70); VBG PCO2 59.7 mmol/L (35-51); VBG PH 7.37 mmol/L (7.31-7.41); VBG PO2 36.7 mmol/L (28-40); VBG Total CO2 35.7 mmol/L (23-27)
[2023-10-21 15:27] LABS: Lactate Venous 1.9 mmol/L (0.4-2.0)
[2023-10-21 15:30] LABS: Basophils # 0.1 K/mm3 (0-0.2); Basophils % 0.3 % (0.1-2.0); Eosinophils # 0.1 K/mm3 (0.0-0.4); Eosinophils % 0.3 % (0.1-12.0); Hematocrit 37.1 % (42.0-52.0); Hemoglobin 10.8 g/dL (14.1-18.0); Lymphocytes # 0.5 K/mm3 (0.7-4.5); Lymphocytes % 3.4 % (10-50); Mean Corpuscular HGB Conc 29.2 g/dL (31.8-35.4); Mean Corpuscular Hemoglobin 23.7 pg (27.0-31.2); Mean Corpuscular Volume 81.2 fl (80-94); Mean Platelet Volume 8.1 fl (7.4-10.4); Monocytes # 0.7 K/mm3 (0.1-1.0); Monocytes % 4.6 % (1.7-9.3); Neutrophils % 91.4 % (37.0-80.0); Platelet Count 457 K/mm3 (142-424); Red Blood Count 4.57 M/mm3 (4.60-6.20); Red Cell Distribution Width 17.4 % (11.5-17.5); White Blood Count 15.3 K/mm3 (4.8-10.8)
[2023-10-21 15:34] LABS: Alanine Aminotransferase 43 U/L (12-78); Albumin Level 4.2 g/dl (3.5-5.0); Albumin/Globulin Ratio 1.4 (1.1-1.8); Alkaline Phosphatase 110 U/L (38-126); Anion Gap 10.4 mEq/L (5-15); Aspartate Amino Transferase 50 U/L (17-59); Bilirubin,Total 0.5 mg/dl (0.2-1.3); Blood Urea Nitrogen 12 mg/dl (9-20); Calcium 8.6 mg/dl (8.4-10.2); Carbon Dioxide 36 mmol/L (22.0-30.0); Chloride 86 mmol/L (98-107); Creatinine Clearance Estimated 60 mL/min (50-200); Estimated Glomerular Filt Rate 86 ml/min (>60); GFR (African American) 104 ML/MIN (>60); Globulin 3.1 g/dL (1.3-3.2); Glucose 107 mg/dl (74-100); Potassium 4.4 mmoL/L (3.5-5.1); Sodium 128 mmol/L (136-145); Total Protein,Serum 7.3 g/dl (6.3-8.2)
[2023-10-21 15:36] LABS: MANUAL DIFFERENTIAL MANUAL DIFFERENTIAL (MANUAL DIFF)
[2023-10-21] MEDS: LACTATED RINGERS 1000ML 2,050 ML 1025 ML IV (15:38)
[2023-10-21 15:39] LABS: D-Dimer 0.61 ug/mL (0.0-0.5)
--- NOTE | 2023-10-21 15:39 | ECG_ITS ---
APPROVED REPORT Exam: Resting ECG HR:100 bpm ECG Measurements Heart Rate 100 AXES WA 135 P 64 QRSd 93 QRS 65 QT 329 T 107 QTc 386 Conclusion SINUS TACHYCARDIA MODERATE ST DEPRESSION [0.05+ mV ST DEPRESSION] ABNORMAL ECG UNCONFIRMED REPORT Electronically signed by : Ford Clifton, 10/21/2023 23:15:00
[2023-10-21 15:42] LABS: Ethyl Alcohol < 10 mg/dl (0-10)
[2023-10-21 15:49] LABS: Troponin I < 0.01 ng/ml (0.00-0.034)
[2023-10-21 16:06] LABS: Thyroid Stimulating Hormone 1.34 uIU/mL (0.465-4.68)
--- NOTE | 2023-10-21 16:07 | PC.NURSE ---
Dr Clifton speaking to Dr Tejeda
[2023-10-21 16:10] LABS: Hypochromasia 2+; Lymphocytes % 4 % (10-50); Macrocytosis 1+; Monocytes % 1 % (2-9); Neutrophils % 95 % (42-76); Platelet Estimate Slight Increase; Target Cells 1+; Total Cells Counted 100
[2023-10-21] MEDS: AZITHROMYCIN 500 MG in 0.9 % SODIUM CHLORIDE 250 ML 250 MG IV (16:11)
--- NOTE | 2023-10-21 16:12 | PC.NURSE ---
house called advised of admission
--- NOTE | 2023-10-21 16:22 | PC.NURSE ---
I notified the pt is 75% on RA and restless. pt keeps removing his oxygen, pacing and pulling at all cords. pt pulled out one of his IV'S. Pt is placed on an oxygen mask at this time to see if he tolerates that better than the NC.
--- NOTE | 2023-10-21 16:23 | PC.NURSE ---
pt continues to be restless. he continues to pull off his oxygen and make multiple attempts to get in and out of bed despite unsteady gait. nursing staff is @ bedside for safety
[2023-10-21 16:24] LABS: Microscopic, Urine URINE MICROSCOPIC (MICROSCOPIC)
[2023-10-21 16:34] LABS: Appearance,Urine CLEAR (Clear); Bilirubin,Urine Negative (Negative); Blood, Urine TRACE-I (Negative); Color,Urine YELLOW (Yellow); Glucose,Urine (UA) Negative (Negative); Ketones,Urine Negative (Negative); Leukocyte Esterase,Urine Negative (Negative); Nitrate,Urine Negative (Negative); Protein,Urine TRACE (Negative); Specific Gravity, Urine 1.015 (1.005-1.030); Urobilinogen,Urine 0.2 EU/dl (0.2)
[2023-10-21 16:47] LABS: Barbiturates Screen,Urine Negative ng/ml (<200)
[2023-10-21 16:48] LABS: Amphetamine/Metha Screen,Urine Negative ng/ml (<1000); Benzodiazepines Screen,Urine Negative ng/ml (<200)
--- NOTE | 2023-10-21 16:48 | PC.NURSE ---
report given to Yakelin COY. pt currently on a simple mask saturation is 93%
[2023-10-21 16:49] LABS: Cannabinoid Screen,Urine Negative ng/ml (<50); Cocaine Screen,Urine Negative ng/ml (<300)
[2023-10-21 16:50] LABS: Methadone Screen,Urine Negative ng/ml (<300); RBC,Urine Occasional #/hpf (0-3)
[2023-10-21 16:51] LABS: Opiate Screen,Urine Negative ng/ml (<300); Phencyclidine Screen,Urine Negative ng/ml (<25)
--- NOTE | 2023-10-21 16:51 | PC.NURSE ---
pt going up for admission
--- NOTE | 2023-10-21 17:11 | PC.NURSE ---
I sat in room with pt due to AMS and nonviolent but uncooperative behavior upon arrival at 1500. pt kept trying to stand although gait was unstable, taking oxygen off while stats were dropping. Pt was also jerking/tremoring when standing, with many persuasive attempts to sit, pt cooperated for a few minutes at a time.
--- NOTE | 2023-10-21 17:33 | P.HP_ITS ---
History of Present Illness *Admission Date: 10/21/23 *Reason for visit:: Shortness of breath, confusion *History of present illness: Mr. Abrams is a 63-year-old male who lives at [facility]. History of tobacco dependence, COPD, CAD, schizophrenia, hypertension. He prese nted to the ER because of confusion, low oxygen and fever. He is unable to give significant history. States he is feeling better by the time I interviewed him. Denies significant chest pain, nausea or vomiting. Patient appears however to have vomited by the time he got to the ER. Frankly encephalopathic and hypoxic on arrival to the ER. Majority of history obtained from previous notes. Workup in the ER concerning for sepsis with leukocytosis, tachycardia, tachypnea, hypoxia. Febrile to 101. Also noted to have hyponatremia of 128. Chest imaging with right lower lobe pneumonia. Medicine consulted for admission and further management of sepsis with acute hypoxemic respiratory failure secondary to pneumonia. On my evaluation, patient is resting comfortably on 6 L nasal cannula. Appears no acute distress. Answers basic questions of his name and how he is feeling but unable to give significant review of systems, anderson negative when asked questions. [facility] Disclaimer: The information contained in this section may have been updated after the patient was seen, as this information can be updated by other users. Medical History Cancer screening COPD mixed type Dyspnea on exertion Smoking greater than 30 pack years Coronary artery disease Hypertension Elevated troponin Elevated brain natriuretic peptide (BNP) level Elevated d-dimer Schizophrenia JASS (acute kidney injury) NSTEMI (non-ST elevated myocardial infarction) Respiratory acidosis Acute respiratory failure with hypoxia and hypercapnia Sepsis Pneumonia COPD (chronic obstructive pulmonary disease) with acute bronchitis Acute respiratory failure with hypoxia Pneumonia due to COVID-19 virus Chest pain Palpitations Anxiety Tobacco dependence syndrome Dyspnea Angina, class IV Abnormal stress test Surgical History No history of previous surgery Family History Other Poor historian Social History Smoking Status: Current every day smoker tobacco type: cigarettes alcohol intake: former substance use type: denies use current occupational status: disabled Travel in the last 8 weeks: None household members: other housing: assisted living facility lives independently: Yes marital status: single service: No Review of Systems Review of Systems Review of systems:: unable to obtain Meds Home Medications and Allergies Home Medications Medication Instructions Recorded Confirmed Type aspirin 81 mg chewable tablet 81 mg PO DAILY Heart health 10/09/22 11/21/22 History chlorpromazine 200 mg tablet 200 mg PO HS Anxiety 10/09/22 11/21/22 History metoprolol succinate 100 mg 100 mg PO DAILY High blood pressure 10/09/22 11/21/22 History tablet,extended release 24 hr mirtazapine 45 mg tablet 45 mg PO HS Depression 10/09/22 11/21/22 History olanzapine 20 mg tablet 20 mg PO HS Depression 10/09/22 11/21/22 History omeprazole 40 mg capsule,delayed 40 mg PO DAILY acid reflux 10/09/22 11/21/22 History release oxcarbazepine 300 mg tablet 300 mg PO BID Seizure Control 10/09/22 11/21/22 History trazodone 100 mg tablet 100 mg PO HS Sleep 10/09/22 11/21/22 History acetaminophen 500 mg tablet 500 mg PO Q6H PRN Pain 10/10/22 11/21/22 History (Acetaminophen Extra Strength) bismuth subsalicylate 262 mg/15 mL 524 mg PO Q2HP PRN Diarrhea 10/10/22 11/21/22 History oral suspension diphenhydramine HCl 25 mg capsule 25 mg PO QIDP PRN allergies 10/10/22 11/21/22 History (Banophen) guaifenesin 100 mg/5 mL oral 200 mg PO Q4HP PRN Cough 10/10/22 11/21/22 History liquid (Siltussin SA) nicotine 21 mg/24 hr daily 1 patch transdermal DAILYP PRN 10/10/22 11/21/22 History transdermal patch smoking cessation sertraline 100 mg tablet 100 mg PO DAILY Depression 10/10/22 11/21/22 History clopidogrel 75 mg tablet (Plavix) 75 mg PO DAILY 21 days #21 tabs 10/17/22 11/21/22 Rx albuterol sulfate 90 mcg/actuation 2 inh inhalation QID PRN shortness 11/21/22 11/21/22 Rx aerosol inhaler of breath or wheezing 90 days #8.5 grams fluticasone fur. 100 mcg-umeclid 1 inh inhalation DAILY 90 days #90 11/21/22 11/21/22 Rx 62.5 mcg-vilant 25 mcg ea inhalat.powder (Trelegy Ellipta) ipratropium 0.5 mg-albuterol 3 mg 3 ml inhalation QID PRN shortness 11/21/22 11/21/22 Rx (2.5 mg base)/3 mL nebulization of breath or wheezing #90 mL soln clonazepam 1 mg tablet 1 mg PO QHS Anxiety #30 tabs 05/16/23 Rx New Prescriptions to Start Prescriptions: Allergies Allergy/AdvReac Type Severity Reaction Status Date / Time No Known Allergies Allergy Verified 11/21/22 13:07 Exam Data for Last 24 hours Vital signs and Labs for Last 24 Hours: Temp Pulse Resp BP Pulse Ox O2 Del Method 100.4 F H 102 H 22 187/109 H 92 L Simple Mask 10/21/23 16:54 10/21/23 16:54 10/21/23 16:54 10/21/23 16:54 10/21/23 16:00 10/21/23 16:54 Laboratory Results - last 24 hr 10/21/23 15:06: WBC 15.3 H, RBC 4.57 L, Hgb 10.8 L, Hct 37.1 L, MCV 81.2, MCH 23.7 L, MCHC 29.2 L, RDW 17.4, Plt Count 457 H, MPV 8.1, Neut % (Auto) 91.4 H, Lymph % (Auto) 3.4 L, [place] % (Auto) 4.6, Eos % (Auto) 0.3, Baso % (Auto) 0.3, Neut # (Auto) 14.0 H, Lymph # (Auto) 0.5 L, [place] # (Auto) 0.7, Eos # (Auto) 0.1, Baso # (Auto) 0.1, Total Counted 100, Neutrophils % (Manual) 95 H, Lymphocytes % (Manual) 4 L, Monocytes % (Manual) 1 L, Platelet Estimate Slight increase, Hypochromasia 2+, Macrocytosis 1+, Target Cells 1+, D-Dimer 0.61 H, Sodium 128 L , Potassium 4.4, Chloride 86 L, Carbon Dioxide 36 H, Anion Gap 10.4, BUN 12, Creatinine 0.90, Estimated Creat Clear 60, Estimated GFR 86, Est GFR ( Amer) 104, Glucose 107 H, Calcium 8.6, Total Bilirubin 0.5, AST 50, ALT 43, Alkaline Phosphatase 110, Troponin I < 0.01, Total Protein 7.3, Albumin 4.2, Globulin 3.1, Albumin/Globulin Ratio 1.4, TSH 1.34, Plasma/Serum Alcohol < 10, SARS-CoV-2 (PCR) Not detected, Influenza A Untype (PCR) Not detected, Influenza Type B (PCR) Not detected 10/21/23 15:16: VBG pH 7.37, VBG pCO2 59.7 H, VBG pO2 36.7, VBG HCO3 33.9 H, VBG Total CO2 35.7 H, VBG O2 Saturation 66.9, VBG Base Excess 8.6 H, VBG Lactic Acid 1.9 10/21/23 16:20: Urine Color Yellow, Urine Appearance Clear, Urine pH 8.0, Ur Specific [place] 1.015, Urine Protein Trace, Urine Glucose (UA) Negative, Urine Ketones Negative, Urine Blood Trace-i, Urine Nitrate Negative, Urine Bilirubin Negative, Urine Urobilinogen 0.2, Ur Leukocyte Esterase Negative, Urine RBC Occasional, Urine WBC None, Ur Squamous Epith Cells None, Urine Bacteria None, Urine Opiates Screen Negative, Urine Methadone Screen Negative, Ur Barbituates Screen Negative, Ur Phencyclidine Scrn Negative, Ur Amphetamines Screen Negative, U Benzodiazepines Scrn Negative, Urine Cocaine Screen Negative, U Marijuana (THC) Screen Negative I & O for Last 24 hours: Intake & Output 10/18/23 10/19/23 10/20/23 10/22/23 23:59 23:59 23:59 00:59 Weight 54.431 kg Constitutional Constitutional: mild distress, thin, chronically ill appearing and cooperative *Routine HEENT Exam Head: Present normocephalic Eye: Present PERRL and normal accommodation ENT: Present mucous membranes dry *Routine Neck Exam Neck: Present trachea midline *Routine Respiratory Exam Respiratory: Present rhonchi and crackles (Right lower lobe) *Routine Cardiovascular Exam Cardiovascular: Present tachycardia Comments: Regular rhythm *Routine Abdominal Exam Abdominal: Present soft and normoactive bowel sounds; Absent tenderness *Routine Rectal Exam Rectal:: deferred *Routine Genitalia Exam Genitalia:: deferred *Routine Extremities Exam Extremities: Absent cyanosis, clubbing or edema *Routine Neurological Exam Neurological: Present alert and moving all extremities Comments: Cooperative, oriented to self only Assessment and Plan *Assessment and plan (1) Severe sepsis: Status: Acute Category: Medical Code(s): A41.9 - Sepsis, unspecified organism; R65.20 - Severe sepsis without septic shock (2) Hyponatremia: Status: Acute Category: Medical Code(s): E87.1 - Hypo-osmolality and hyponatremia (3) Hypoxic respiratory failure: Status: Acute Category: Medical Code(s): J96.91 - Respiratory failure, unspecified with hypoxia (4) CAP (community acquired pneumonia): Status: Acute Category: Medical Code(s): J18.9 - Pneumonia, unspecified organism (5) Smoking greater than 30 pack years: Status: Chronic Category: Social Hx Code(s): F17.210 - Nicotine dependence, cigarettes, uncomplicated (6) Schizophrenia: Status: Acute Category: Medical Code(s): F20.9 - Schizophrenia, unspecified (7) Coronary artery disease: Status: Acute Qualifiers: Associated angina: without angina Coronary Disease-Associated Art kianna/Lesion type: [place] artery [place] vs. transplanted heart: [place] heart Qualified Code(s): I25.10 - Atherosclerotic heart disease of [place] coronary artery without angina pectoris Category: Medical Code(s): I25.10 - Atherosclerotic heart disease of [place] coronary artery without angina pectoris (8) Hypertension: Status: Acute Qualifiers: Hypertension type: primary hypertension Qualified Code(s): I10 - Essential (primary) hypertension Category: Medical Code(s): I10 - Essential (primary) hypertension (9) Moderate protein-calorie malnutrition: Status: Acute Category: Medical Code(s): E44.0 - Moderate protein-calorie malnutrition (10) Anxiety: Status: Chronic Category: Medical Code(s): F41.9 - Anxiety disorder, unspecified Plan 63-year-old male meeting severe sepsis criteria with tachypnea, tachycardia, fever, leukocytosis, chest imaging with multifocal pneumonia. Workup in the ER concerning for new oxygen requirement, Acute hypoxemic respiratory failure. Discussed case with ER physician, request admission for treatment of her severe sepsis, IV antibiotics, and further management. Medicine agreed to admit. Continue IV antibiotics with broad-spectrum vancomycin, azithromycin, and Zosyn. Given location of pneumonia predominantly right lower lobe, concern for aspiration component. Necessitating inpatient admission. PSI/port score 101 (Age 63, male, altered mental status, sodium less than 130), class IV risk. Problems addressed as follows: Severe sepsis Acute hypoxemic respiratory failure RLL pneumonia -Supplemental oxygen for goal sats greater 90%, currently on simple mask -Personally reviewed chest x-ray, positive for right lower lobe airspace disease and consolidation, no appreciable effusion -Received azithromycin in the ER, awaiting first vancomycin and Zosyn dose. Continue broad-spectrum antibiotics with Vanco, azithromycin and Zosyn. Monitor for toxicity. concern for component of aspiration. -DuoNebs every 6 hours scheduled -Blood cultures pending; sputum cultures pending -White cell count elevated at 15 -Tylenol 650 mg as needed every 6 hours for fever pain -Status post IV fluids in the ER. Electrolyte disturbances: Sodium 128, chloride 86. Potassium normal at 4.4. Kidney function stable BUN of 12 and creatinine of 0.9. Repeat labs in the morning to monitor for improvement with sepsis fluids. Monitor with repeat CBC, CMP, magnesium ordered for the morning. Schizophrenia and mood disorder: Continue chlorpromazine 200 mg nightly Continue Klonopin 1 mg nightly Continue olanzapine 20 mg nightly Continue mirtazapine 45 mg nightly Continue oxcarbazepine 300 mg twice daily Continue Zoloft 100 mg daily CAD: Continue Plavix and aspirin daily. GERD: Continue PPI daily Hypertension: Continue metoprolol succinate 100 mg daily, monitor for additional medications given hypertension Tobacco use disorder: Nicotine patch as needed Full code Regular diet Heparin SQ twice daily
[2023-10-21] MEDS: PIPERCILLIN/TAZO 3.375 GM in 0.9 % SODIUM CHLORIDE 50 ML IV ×2 (18:19→23:25)
[2023-10-21] MEDS: IPRATROPIUM/ALBUTEROL 3 ML NEB IH ×2 (18:35→23:10)
[2023-10-21 18:38] LABS: Ammonia 40 umol/L (9-30)
[2023-10-21] MEDS: VANCOMYCIN CONSULT REQUEST 1 EACH NOTAPPLIC (18:41)
[2023-10-21 18:54] LABS: Troponin I < 0.01 ng/ml (0.00-0.034)
[2023-10-21] MEDS: VANCOMYCIN/WATER FOR INJ (PEG) 1.25 GM/250 ML PIGGYBACK IV (19:02)
[2023-10-21] MEDS: OLANZAPINE 20 MG 20 EACH PO (20:11)
[2023-10-21] MEDS: MIRTAZAPINE 45 MG 45 EACH PO (20:12)
[2023-10-21] MEDS: OXcarbazepine 300MG TABLET 300 MG PO (20:12)
[2023-10-21] MEDS: HEPARIN SODIUM 5,000 UNIT/ML VIAL 5000 UNIT SQ (20:13)
[2023-10-21] MEDS: PANTOPRAZOLE 40MG VIAL 40 MG IV (20:13)
[2023-10-21 23:09] LABS: Troponin I < 0.01 ng/ml (0.00-0.034)
[2023-10-22] VITALS (15 sets, daily range): BP systolic 117–134; BP diastolic 72–78; PULSE 74–90; RESP 16–22; TEMP 36.9; O2SAT 82–95; BMI 18.0
--- NOTE | 2023-10-22 01:17 | PC.NURSE ---
This RN took over care of pt at 0100.
[2023-10-22] MEDS: PIPERCILLIN/TAZO 3.375 GM in 0.9 % SODIUM CHLORIDE 50 ML IV ×3 (05:09→18:15)
--- NOTE | 2023-10-22 05:18 | PC.NURSE ---
Since taking over care, pt has became more alert, pt can tell me name,birthday, hes in a hospital, when ask what city with options, he can tell me [place], not sure of year. Pt is on 4.5L NC, O2 >90%. NSR on tele. Pt uses urinal with one assist. Pt has voiced no complaints. Call light in reach.
[2023-10-22 06:24] LABS: Basophils # 0.1 K/mm3 (0-0.2); Basophils % 0.3 % (0.1-2.0); Eosinophils # 0.1 K/mm3 (0.0-0.4); Eosinophils % 0.4 % (0.1-12.0); Hemoglobin 9.8 g/dL (14.1-18.0); Lymphocytes # 1.7 K/mm3 (0.7-4.5); Lymphocytes % 9.3 % (10-50); Mean Corpuscular HGB Conc 28.7 g/dL (31.8-35.4); Mean Corpuscular Hemoglobin 23.4 pg (27.0-31.2); Mean Corpuscular Volume 81.6 fl (80-94); Mean Platelet Volume 7.5 fl (7.4-10.4); Monocytes # 1.2 K/mm3 (0.1-1.0); Monocytes % 6.2 % (1.7-9.3); Neutrophils # 15.5 K/mm3 (1.8-7.8); Neutrophils % 83.7 % (37.0-80.0); Platelet Count 426 K/mm3 (142-424); Red Blood Count 4.17 M/mm3 (4.60-6.20); Red Cell Distribution Width 17.4 % (11.5-17.5); White Blood Count 18.5 K/mm3 (4.8-10.8)
[2023-10-22 06:31] LABS: Alanine Aminotransferase 31 U/L (12-78); Albumin Level 3.6 g/dl (3.5-5.0); Albumin/Globulin Ratio 1.3 (1.1-1.8); Alkaline Phosphatase 96 U/L (38-126); Anion Gap 7.8 mEq/L (5-15); Aspartate Amino Transferase 31 U/L (17-59); Bilirubin,Total 0.5 mg/dl (0.2-1.3); Blood Urea Nitrogen 9 mg/dl (9-20); Calcium 8.3 mg/dl (8.4-10.2); Carbon Dioxide 37 mmol/L (22.0-30.0); Chloride 91 mmol/L (98-107); Creatinine Clearance Estimated 59 mL/min (50-200); Estimated Glomerular Filt Rate 86 ml/min (>60); GFR (African American) 104 ML/MIN (>60); Globulin 2.8 g/dL (1.3-3.2); Glucose 92 mg/dl (74-100); Potassium 3.8 mmoL/L (3.5-5.1); Sodium 132 mmol/L (136-145); Total Protein,Serum 6.4 g/dl (6.3-8.2)
[2023-10-22] MEDS: IPRATROPIUM/ALBUTEROL 3 ML NEB IH ×3 (06:31→18:56)
[2023-10-22 06:37] LABS: MANUAL DIFFERENTIAL MANUAL DIFFERENTIAL (MANUAL DIFF)
[2023-10-22 07:23] LABS: Lymphocytes % 6 % (10-50); Monocytes % 7 % (2-9); Neutrophils % 87 % (42-76); Total Cells Counted 100
[2023-10-22 07:24] LABS: Hypochromasia 2+; Platelet Estimate Slight Increase
--- NOTE | 2023-10-22 07:40 | PC.NURSE ---
increased o2 to 6l nc with sats now at 90%.
--- NOTE | 2023-10-22 07:47 | P.CONPHA_ITS ---
Pharmacy Consult Date: 10/22/23 Time: 07:47 Referring provider: DR. DELGADO Reason for Consult:: VANCOMYCIN DOSING Allergies Allergy/AdvReac Type Severity Reaction Status Date / Time No Known Allergies Allergy Verified 11/21/22 13:07 Home Medications Medication Instructions Recorded Confirmed Type aspirin 81 mg chewable tablet 81 mg PO DAILY Heart health 10/09/22 11/21/22 History chlorpromazine 200 mg tablet 200 mg PO HS Anxiety 10/09/22 11/21/22 History metoprolol succinate 100 mg 100 mg PO DAILY High blood pressure 10/09/22 11/21/22 History tablet,extended release 24 hr mirtazapine 45 mg tablet 45 mg PO HS Depression 10/09/22 11/21/22 History olanzapine 20 mg tablet 20 mg PO HS Depression 10/09/22 11/21/22 History omeprazole 40 mg capsule,delayed 40 mg PO DAILY acid reflux 10/09/22 11/21/22 History release oxcarbazepine 300 mg tablet 300 mg PO BID Seizure Control 10/09/22 11/21/22 History trazodone 100 mg tablet 100 mg PO HS Sleep 10/09/22 11/21/22 History acetaminophen 500 mg tablet 500 mg PO Q6H PRN Pain 10/10/22 11/21/22 History (Acetaminophen Extra Strength) bismuth subsalicylate 262 mg/15 mL 524 mg PO Q2HP PRN Diarrhea 10/10/22 11/21/22 History oral suspension diphenhydramine HCl 25 mg capsule 25 mg PO QIDP PRN allergies 10/10/22 11/21/22 History (Banophen) guaifenesin 100 mg/5 mL oral 200 mg PO Q4HP PRN Cough 10/10/22 11/21/22 History liquid (Siltussin SA) nicotine 21 mg/24 hr daily 1 patch transdermal DAILYP PRN 10/10/22 11/21/22 History transdermal patch smoking cessation sertraline 100 mg tablet 100 mg PO DAILY Depression 10/10/22 11/21/22 History clopidogrel 75 mg tablet (Plavix) 75 mg PO DAILY 21 days #21 tabs 10/17/22 11/21/22 Rx albuterol sulfate 90 mcg/actuation 2 inh inhalation QID PRN shortness 11/21/22 11/21/22 Rx aerosol inhaler of breath or wheezing 90 days #8.5 grams fluticasone fur. 100 mcg-umeclid 1 inh inhalation DAILY 90 days #90 11/21/22 11/21/22 Rx 62.5 mcg-vilant 25 mcg ea inhalat.powder (Trelegy Ellipta) ipratropium 0.5 mg-albuterol 3 mg 3 ml inhalation QID PRN shortness 11/21/22 11/21/22 Rx (2.5 mg base)/3 mL nebulization of breath or wheezing #90 mL soln clonazepam 1 mg tablet 1 mg PO QHS Anxiety #30 tabs 05/16/23 Rx New Prescriptions to Start Prescriptions: Height: 1.73 m Weight: 54.023 kg Laboratory Results:: Laboratory Results - last 24 hr 10/21/23 15:06: WBC 15.3 H, RBC 4.57 L, Hgb 10.8 L, Hct 37.1 L, MCV 81.2, MCH 23.7 L, MCHC 29.2 L, RDW 17.4, Plt Count 457 H, MPV 8.1, Neut % (Auto) 91.4 H, Lymph % (Auto) 3.4 L, [place] % (Auto) 4.6, Eos % (Auto) 0.3, Baso % (Auto) 0.3, Neut # (Auto) 14.0 H, Lymph # (Auto) 0.5 L, [place] # (Auto) 0.7, Eos # (Auto) 0.1, Baso # (Auto) 0.1, Total Counted 100, Neutrophils % (Manual) 95 H, Lymphocytes % (Manual) 4 L, Monocytes % (Manual) 1 L, Platelet Estimate Slight increase, Hypochromasia 2+, Macrocytosis 1+, Target Cells 1+, D-Dimer 0.61 H, Sodium 128 L , Potassium 4.4, Chloride 86 L, Carbon Dioxide 36 H, Anion Gap 10.4, BUN 12, Creatinine 0.90, Estimated Creat Clear 60, Estimated GFR 86, Est GFR ( Amer) 104, Glucose 107 H, Calcium 8.6, Total Bilirubin 0.5, AST 50, ALT 43, Alkaline Phosphatase 110, Troponin I < 0.01, Total Protein 7.3, Albumin 4.2, Globulin 3.1, Albumin/Globulin Ratio 1.4, TSH 1.34, Plasma/Serum Alcohol < 10, SARS-CoV-2 (PCR) Not detected, Influenza A Untype (PCR) Not detected, Influenza Type B (PCR) Not detected 10/21/23 15:16: VBG pH 7.37, VBG pCO2 59.7 H, VBG pO2 36.7, VBG HCO3 33.9 H, VBG Total CO2 35.7 H, VBG O2 Saturation 66.9, VBG Base Excess 8.6 H, VBG Lactic Acid 1.9 10/21/23 16:20: Urine Color Yellow, Urine Appearance Clear, Urine pH 8.0, Ur Specific [place] 1.015, Urine Protein Trace, Urine Glucose (UA) Negative, Urine Ketones Negative, Urine Blood Trace-i, Urine Nitrate Negative, Urine Bilirubin Negative, Urine Urobilinogen 0.2, Ur Leukocyte Esterase Negative, Urine RBC Occasional, Urine WBC None, Ur Squamous Epith Cells None, Urine Bacteria None, Urine Opiates Screen Negative, Urine Methadone Screen Negative, Ur Barbituates Screen Negative, Ur Phencyclidine Scrn Negative, Ur Amphetamines Screen Negative, U Benzodiazepines Scrn Negative, Urine Cocaine Screen Negative, U Marijuana (THC) Screen Negative 10/21/23 18:05: Ammonia 40 H 10/21/23 18:10: Troponin I < 0.01 10/21/23 22:40: Troponin I < 0.01 10/22/23 05:12: WBC 18.5 H, RBC 4.17 L, Hgb 9.8 L, Hct 34.0 L, MCV 81.6, MCH 23.4 L, MCHC 28.7 L, RDW 17.4, Plt Count 426 H, MPV 7.5, Neut % (Auto) 83.7 H, Lymph % (Auto) 9.3 L, [place] % (Auto) 6.2, Eos % (Auto) 0.4, Baso % (Auto) 0.3, Neut # (Auto) 15.5 H, Lymph # (Auto) 1.7, [place] # (Auto) 1.2 H, Eos # (Auto) 0.1, Baso # (Auto) 0.1, Total Counted 100, Neutrophils % (Manual) 87 H, Lymphocytes % (Manual) 6 L, Monocytes % (Manual) 7, Platelet Estimate Slight increase, Hypochromasia 2+, Sodium 132 L, Potassium 3.8, Chloride 91 L, Carbon Dioxide 37 H, Anion Gap 7.8, BUN 9, Creatinine 0.90, Estimated Creat Clear 59, Estimated GFR 86, Est GFR ( Amer) 104, Glucose 92, Calcium 8.3 L, Magnesium 2.0, Total Bilirubin 0.5, AST 31 D, ALT 31 D, Alkaline Phosphatase 96, Total Protein 6.4, Albumin 3.6 D, Globulin 2.8, Albumin/Globulin Ratio 1.3 Medical History: Medical History (Updated 10/21/23 @ 15:43 by Renaldo Delgado MD) Cancer screening COPD mixed type Dyspnea on exertion Smoking greater than 30 pack years Coronary artery disease Hypertension Elevated troponin Elevated brain natriuretic peptide (BNP) level Elevated d-dimer Schizophrenia JASS (acute kidney injury) NSTEMI (non-ST elevated myocardial infarction) Respiratory acidosis Acute respiratory failure with hypoxia and hypercapnia Sepsis Pneumonia COPD (chronic obstructive pulmonary disease) with acute bronchitis Acute respiratory failure with hypoxia Pneumonia due to COVID-19 virus Chest pain Palpitations Anxiety Tobacco dependence syndrome Dyspnea Angina, class IV Abnormal stress test Assessment and Plan Assessment and plan all Dx Assessment and Plan for all problems:: Pharmacokinetic dosing service Objective: Patient: Floor: Age: 63 yo Serum creatinine: 0.90 mg/dL Height: 68.1 Inches Weight (kg): 54 Assessment: IBW (kg): 68.63 Dosing wt(kg): 54 Estimated Creatinine clearance (ml/min): 65.8 CRCL method: Cockcroft and Gault using ibw(default). Drug selected: Vancomycin Loading dose (mg): Vd (liters): 43.2 (factor used: 0.8 L/kg) David (hr-1): 0.059 Half life (hrs): 11.75 CLvanco=?? 2.549 L/hr Recommended dose: 1000 mg Interval: 18 hrs Infusion time (hrs): 2.0 Predicted peak (mcg/mL): 33.4 Predicted trough (mcg/mL): 12.99 Total body weight is being used for vancomycin dosing. Recommendations: Give Vancomycin 1000 mg q 18 hrs with an expected Cpeak of 33.4 mcg/ml and an expected Ctrough of 12.99 mcg/ml AUC 0-24 /RANDY Data: RANDY 0.5 mcg/mL:?? AUC/RANDY:? 1046.2 RANDY 1.0 mcg/mL:?? AUC/RANDY:? 523.1 --------- RANDY 1.5 mcg/mL:?? AUC/RANDY:? 348.7 RANDY 2.0 mcg/mL:?? AUC/RANDY:? 261.5 Thank you for the consult, will continue to follow. -FARZANEH AMARO, NATHAND
--- NOTE | 2023-10-22 08:07 | PC.NURSE ---
in room talking with patient at this time.
--- NOTE | 2023-10-22 08:23 | PC.NURSE ---
patient up to chair with assistants at this time.
[2023-10-22] MEDS: METOPROLOL SUCCINATE XL 100MG TABLET 100 MG PO (08:28)
[2023-10-22] MEDS: HEPARIN SODIUM 5,000 UNIT/ML VIAL 5000 UNIT SQ ×2 (08:28→20:27)
[2023-10-22] MEDS: OXcarbazepine 300MG TABLET 300 MG PO ×2 (08:28→20:28)
[2023-10-22] MEDS: ASPIRIN 81MG CHEWABLE TABLET 81 MG PO (08:28)
[2023-10-22] MEDS: CLOPIDOGREL 75MG TAB 75 MG PO (08:28)
[2023-10-22] MEDS: SERTRALINE 100MG TABLET 100 MG PO (08:28)
[2023-10-22] MEDS: NICOTINE 21MG/24HR PATCH 21 MG TD (08:34)
--- NOTE | 2023-10-22 08:57 | PC.NURSE ---
PT/OT in room with patient at this time.
--- NOTE | 2023-10-22 09:52 | HMH.OTEV ---
OT Inpatient Evaluation Rehab OT IP Evaluation Start: 10/22/23 08:09 Freq: ONCE Status: Active Protocol: Document 10/22/23 09:46 [id number] (Rec: 10/22/23 09:52 [facility] [id number]) Rehab OT IP Assessment Subjective History Pt oriented x 3 on arrival. Pt agreeable to engage in therapy evaluation. Pt admitted on 10/21/23 due to PNA and sepsis. History and Physical report: Mr. Abrams is a 63-year-[facility] History of tobacco dependence, COPD, CAD, schizophrenia, hypertension. He presented to the ER because of confusion, low oxygen and fever. He is unable to give significant history. States he is feeling better by the time I interviewed him. Denies significant chest pain, nausea or vomiting. Patient appears however to have vomited by the time he got to the ER. Frankly encephalopathic and hypoxic on arrival to the ER. Majority of history obtained from previous notes. Workup in the ER concerning for sepsis with leukocytosis, tachycardia, tachypnea, hypoxia. Febrile to 101. Also noted to have hyponatremia of 128. Chest imaging with right lower lobe pneumonia. Medicine consulted for admission and further management of sepsis with acute hypoxemic respiratory failure secondary to pneumonia . Subjective I am feeling better. Prior to being in the hospital , pt was living at [facility]. Pt claims normally he independent with all ADLs. Pt did not require any type of AE during functional transfers . Objective Patient Orientation Person,Place,Birthday Right Upper Extremity Gross ROM WFL Left Upper Extremity Gross ROM WFL Bed Mobility bed mobility-scooting,bed mobility - supine/sit Assist Level Contact Guard/Hand Hold Transfer Training Sit/Stand Transfer Assist Level Contact Guard/Hand Hold Chair Transfer Ability Contact Guard/Hand Hold Chair Transfer Technique Sit to/from Ambulatory Rehab OT IP prob,goals,plan Problems Date of Evaluation: 10/22/23 OT IP Problems Bed Mobility,Transfers,Balance ,Self care,Safety Rehab Potential Rehab Potential Good Equipment Needs Assistive Devices None / NA Plan OT intervention Plan Bed Mobility,Transfers,Balance ,Self care,Safety,Therapeutic Exercise OT Plan Frequency Daily Duration LOS Discharge Goals Bed Mobility Ability Standby Assistance Sit to Stand Chair Transfer Ability Supervision/Stand by Chair Transfer Ability Supervision/Stand by Chair Transfer Technique Sit to/from Ambulatory Chair Transfer Assistive Devices None Self care skills uses utensils to feed self Feeding Ability Assist with Tray Set Up Lower Body Dressing Ability Standby Assistance Upper Body Dressing Ability Standby Assistance Bathing Ability Standby Assistance Performing Toilet Hygiene Ability Standby Assistance Overall Commode/Toilet Transfer Ability Standby Assistance Commode/Toilet Transfer Technique Sit to/from Ambulatory Oral Care Assist Standby Assistance Decrease in Endurance No Discharge Plan OT Discharge Plan Pt appears to be close to his baseline with functional transfers and ADL independence . Pt can return back to [facility] once he is medically stable per physician. Therapist recommends OT evaluation as needed. Eval Complexity Eval Charge Codes 66474 - Moderate Complexity PHYSICIAN CERTIFICATION: I certify the specified therapy services for Dov Abrams are required, authorized, and reviewed every 30 days.
--- NOTE | 2023-10-22 09:55 | HMH.PTEV ---
Physical Therapy Evaluation Rehab PT IP Evaluation Start: 10/22/23 08:08 Freq: ONCE Status: Active Protocol: Document 10/22/23 09:49 OTILIA (Rec: 10/22/23 09:55 OTILIA [email or web address]) Subjective/History History History Per H&P: Mr. Abrams is a 63-year-old male who lives at [facility]. History of tobacco dependence, COPD, CAD, schizophrenia, hypertension. He presented to the ER because of confusion, low oxygen and fever. He is unable to give significant history. States he is feeling better by the time I interviewed him. Denies significant chest pain, nausea or vomiting. Patient appears however to have vomited by the time he got to the ER. Frankly encephalopathic and hypoxic on arrival to the ER. Majority of history obtained from previous notes. Workup in the ER concerning for sepsis with leukocytosis, tachycardia, tachypnea, hypoxia. Febrile to 101. Also noted to have hyponatremia of 128. Chest imaging with right lower lobe pneumonia. Subjective Subjective PLOF per pt report: Living at [facility]. IND with ADLs and mobility without AD use. New diagnosis of cancer in past 12 No months? Rehab PT IP Eval Objective Appearance Patient Behavior Appropriate,Cooperative Patient Orientation Person,Place Difficulty following instructions none Speech Pattern Clear Ambulation Patient Able to Ambulate Yes Ambulation Observation IP General Gait Pattern Observation Wide Based Gait Ambulation Distance (feet) 5 Ambulation Assistive Device None Ambulation Ability Contact Guard/Hand Hold Transfers Bed Transfer Ability Supervision/Stand by Sit to Stand Chair Transfer Ability Contact Guard/Hand Hold Rehab PT IP prob,goals,plan Problems Date of Evaluation: 10/22/23 PT IP Problems Transfers,Gait,Balance,Self care,Safety Rehab Potential Rehab Potential Good Equipment Needs Assistive Devices None / NA Plan PT Intervention Plan Transfers,Gait,Balance,Safety, Therapeutic Exercise Other Intervention Plan 1-2 times PT Plan Frequency Daily Duration LOS Discharge Goals Bed Transfer Ability Independent Sit to Stand Chair Transfer Ability Independent Ambulation Assistive Device None Ambulation Distance (feet) 20 Discharge Plan PT Discharge Plan Pt safe to d/c back to previous living arrangement when deemed medically necessary d/t current level of mobility and home set-up. Pt would benefit from skilled PT while at [facility] to prevent further functional decline and maximize safety with mobility . HH services recommended upon d/c. Eval Complexity Eval Charge Codes 84883 - High Complexity PHYSICIAN CERTIFICATION: I certify the specified therapy services for [place] are required, authorized, and reviewed every 30 days.
--- NOTE | 2023-10-22 10:55 | PC.NURSE ---
pts brother yohan called for update, pt okay with giving yohan information. updated pts emergency contact info
--- NOTE | 2023-10-22 12:01 | SW/DCPLANNER ---
Addendum entered by [facility] 10/23/23 10:19: Patient discharged to [facility] level of care. Addendum entered by Delma Brown RN 10/22/23 16:03: Spoke with ZBIGNIEW Ordoñez. She states patient will qualify for ambulance transport to [facility]. Spoke with brother as [facility] accept and he is good with this plan. Spoke with Nathan, EMS, and they will transport patient in the morning, the earlier the better, but at least by 9am. Relayed this information to Dr. Tejeda. Addendum entered by [facility] 10/22/23 15:26: *evaluate Patient's brother (Sid) is aware that if patient d/c to [facility] he will have to transport patient. Addendum entered by [facility] 10/22/23 15:26: [facility] is unable to accept this patient. Nadiya w/ [facility] will be onsite to evalute this patient today. Addendum entered by [facility] 10/22/23 14:31: [facility] patient under [facility]. I attempted to contact patient's brother: no answer at this time. Addendum entered by [facility] 10/22/23 12:54: [phone] per patient/family request. Addendum entered by [facility] 10/22/23 12:04: I have also updated Magaly w/ [facility] that patient will need LTC prior to returning due to O2 requirement. Original Note: I spoke w/ patient and his brother regarding plans once medically stable for discharge. PT/OT evaluated patient and stated that he was safe to return to [facility]. Due to patient's oxygen requirement he will need LTC prior to returning to [facility]. Patient's brother (Sid) requested that patient information be faxed to [facility] due to his family living in this area. I attempted to call [facility]: no answer VM left at this time. I explained to family that due to patient being medically stable for discharge I would also need to fax information to local facility [facility]: patient is agreeable. I will continue to follow up w/ facilities and patient/family.
[2023-10-22] MEDS: VANCOMYCIN HCL 1,000 MG in 0.9 % SODIUM CHLORIDE 250 ML 125 MG IV (13:11)
--- NOTE | 2023-10-22 15:16 | PC.NURSE ---
stephani from [facility] talking with patient at this time.
[2023-10-22] MEDS: AZITHROMYCIN 500 MG in 0.9 % SODIUM CHLORIDE 250 ML 250 MG IV (15:21)
--- NOTE | 2023-10-22 18:20 | PC.NURSE ---
pt has done well this shift. alert and oriented, mild confusion this morning when asked where the pt was. currently on 4l nc with sats 90-95%. large bowl movement with very little bright red blood due to straining, notified. nsr on tele. per garo, plan is for dc tomorrow to snf, ambulance pepper picker at 9am.
--- NOTE | 2023-10-22 18:59 | PC.NURSE ---
ROOM AIR SATS PATIENT IS O2 IS AT 94 ON 4L. HE DESATS VERY QUICKLY.
--- NOTE | 2023-10-22 19:54 | P.PN_ITS ---
Subjective *Date: 10/22/23 *Time: 21:50 Interval history: Patient resting comfortably on 4 L oxygen this morning. Afebrile. Tolerating p.o. intake. No behavioral disturbances. Pleasant and cooperative. Oriented to self and place. Asking when he can go home. Denies chest pain, shortness of breath, nausea, vomiting, diarrhea. Medical Exam Vital signs and Labs for Last 24 Hours: Vital Signs Temp Pulse Pulse Resp BP Pulse Ox O2 Del Method 10/22/23 19:25 98.5 F 78 16 134/78 92 L Nasal Cannula 10/22/23 18:56 77 10/22/23 18:56 76 10/22/23 18:56 94 L Nasal Cannula 10/22/23 18:19 Nasal Cannula 10/22/23 17:00 Nasal Cannula 10/22/23 16:00 75 10/22/23 15:59 98.5 F 129/77 93 L Nasal Cannula 10/22/23 15:00 Nasal Cannula 10/22/23 13:00 Nasal Cannula 10/22/23 12:00 87 10/22/23 11:55 75 10/22/23 11:55 76 10/22/23 11:55 95 Nasal Cannula 10/22/23 11:47 74 126/73 94 L Nasal Cannula 10/22/23 11:00 Nasal Cannula 10/22/23 10:16 82 L Room Air 10/22/23 09:00 Nasal Cannula 10/22/23 08:00 90 10/22/23 08:00 Nasal Cannula 10/22/23 07:50 78 117/72 92 L Nasal Cannula 10/22/23 06:33 Nasal Cannula 10/22/23 06:31 78 10/22/23 06:31 76 10/22/23 06:31 95 Nasal Cannula 10/22/23 04:42 Nasal Cannula 10/22/23 04:00 90 10/22/23 03:55 98.5 F 83 22 129/75 90 L Nasal Cannula 10/22/23 03:00 Nasal Cannula 10/22/23 00:42 Nasal Cannula 10/22/23 00:00 77 10/21/23 23:50 98.8 F 75 26 H 131/75 92 L Nasal Cannula 10/21/23 23:10 90 10/21/23 23:10 90 10/21/23 23:00 Nasal Cannula 10/21/23 20:48 Nasal Cannula 10/21/23 20:00 94 H O2 Flow Rate 10/22/23 19:25 4 10/22/23 18:56 10/22/23 18:56 10/22/23 18:56 6 10/22/23 18:19 4 10/22/23 17:00 4 10/22/23 16:00 10/22/23 15:59 4 10/22/23 15:00 4 10/22/23 13:00 4 10/22/23 12:00 10/22/23 11:55 10/22/23 11:55 10/22/23 11:55 3 10/22/23 11:47 4 10/22/23 11:00 4 10/22/23 10:16 10/22/23 09:00 5 10/22/23 08:00 10/22/23 08:00 5 10/22/23 07:50 6 10/22/23 06:33 4.5 10/22/23 06:31 10/22/23 06:31 10/22/23 06:31 4 10/22/23 04:42 4.5 10/22/23 04:00 10/22/23 03:55 4 10/22/23 03:00 5 10/22/23 00:42 5 10/22/23 00:00 10/21/23 23:50 5 10/21/23 23:10 10/21/23 23:10 10/21/23 23:00 5 10/21/23 20:48 5 10/21/23 20:00 Intake and Output 10/22/23 10/22/23 10/22/23 07:59 15:59 23:59 Intake Total 1460 / 1460 Output Total 1155 / 2880 1200 / 2880 525 / 2880 Balance -1155 / -1420 260 / -1420 -525 / -1420 Intake: Intake, Oral Amount 1460 / 1460 Output: Output, Urine Amount 1155 / 2880 1200 / 2880 525 / 2880 Other: Number of Unmeasured Voids 0 Number of Bowel Movements 1 Weight 54.023 kg Patient Weight 10/22/23 23:59 Weight 54.023 kg Laboratory Results - last 24 hr 10/21/23 22:40: Troponin I < 0.01 10/22/23 05:12: WBC 18.5 H, RBC 4.17 L, Hgb 9.8 L, Hct 34.0 L, MCV 81.6, MCH 23.4 L, MCHC 28.7 L, RDW 17.4, Plt Count 426 H, MPV 7.5, Neut % (Auto) 83.7 H, Lymph % (Auto) 9.3 L, [place] % (Auto) 6.2, Eos % (Auto) 0.4, Baso % (Auto) 0.3, Neut # (Auto) 15.5 H, Lymph # (Auto) 1.7, [place] # (Auto) 1.2 H, Eos # (Auto) 0.1, Baso # (Auto) 0.1, Total Counted 100, Neutrophils % (Manual) 87 H, Lymphocytes % (Manual) 6 L, Monocytes % (Manual) 7, Platelet Estimate Slight increase, Hypochromasia 2+, Sodium 132 L, Potassium 3.8, Chloride 91 L, Carbon Dioxide 37 H, Anion Gap 7.8, BUN 9, Creatinine 0.90, Estimated Creat Clear 59, Estimated GFR 86, Est GFR ( Amer) 104, Glucose 92, Calcium 8.3 L, Magnesium 2.0, Total Bilirubin 0.5, AST 31 D, ALT 31 D, Alkaline Phosphatase 96, Total Protein 6.4, Albumin 3.6 D, Globulin 2.8, Albumin/Globulin Ratio 1.3 I & O for Labs for Last 24 Hours: Intake & Output 10/19/23 10/20/23 10/21/23 10/22/23 22:59 22:59 23:59 23:59 Intake Total 1460 / 1460 Output Total 2880 / 2880 Balance -1420 / -1420 Weight 54.023 kg Constitutional: Present mild distress, thin and chronically ill appearing Head: Present atraumatic and normocephalic ENT: Present normal exam Neck: Present normal inspection Respiratory: Present rhonchi, wheezes and diminished air movement; Absent crackles Cardiac: Present Tachycardia GI: Present normal bowel sounds; Absent tenderness Extremities: Present normal inspection and full ROM Skin: Present intact; Absent erythema Neuro: Present Grossly Intact, alert and moves all extremities Comment:: Will awaken to voice and stimuli. Follows commands with opening eyes and squeezing hand. Assessment and Plan *Assessment and plan (1) Severe sepsis: Status: Acute Category: Medical Code(s): A41.9 - Sepsis, unspecified organism; R65.20 - Severe sepsis without septic shock (2) Hyponatremia: Status: Acute Category: Medical Code(s): E87.1 - Hypo-osmolality and hyponatremia (3) Hypoxic respiratory failure: Status: Acute Category: Medical Code(s): J96.91 - Respiratory failure, unspecified with hypoxia (4) CAP (community acquired pneumonia): Status: Acute Category: Medical Code(s): J18.9 - Pneumonia, unspecified organism (5) Smoking greater than 30 pack years: Status: Chronic Category: Social Hx Code(s): F17.210 - Nicotine dependence, cigarettes, uncomplicated (6) Schizophrenia: Status: Acute Category: Medical Code(s): F20.9 - Schizophrenia, unspecified (7) Coronary artery disease: Status: Acute Qualifiers: Coronary Disease-Associated Artery/Lesion type: [place] artery [place] vs. transplanted heart: [place] heart Associated angina: without angina Qualified Code(s): I25.10 - Atherosclerotic heart disease of [place] coronary artery without angina pectoris Category: Medical Code(s): I25.10 - Atherosclerotic heart disease of [place] coronary artery without angina pectoris (8) Hypertension: Status: Acute Qualifiers: Hypertension type: primary hypertension Qualified Code(s): I10 - Essential (primary) hypertension Category: Medical Code(s): I10 - Essential (primary) hypertension (9) Moderate protein-calorie malnutrition: Status: Acute Category: Medical Code(s): E44.0 - Moderate protein-calorie malnutrition (10) Anxiety: Status: Chronic Category: Medical Code(s): F41.9 - Anxiety disorder, unspecified Plan 63-year-old male meeting severe sepsis criteria with tachypnea, tachycardia, fever, leukocytosis, chest imaging with multifocal pneumonia. Workup in the ER concerning for new oxygen requirement, Acute hypoxemic respiratory failure. Discussed case with ER physician, request admission for treatment of her severe sepsis, IV antibiotics, and further management. Medicine agreed to admit. Continue IV antibiotics with broad-spectrum vancomycin, azithromycin, and Zosyn. Given location of pneumonia predominantly right lower lobe, concern for aspiration component. Necessitating inpatient admission. PSI/port score 101 (Age 63, male, altered mental status, sodium less than 130), class IV risk. Patient showing improvement. Will need to be discharged to SNF given oxygen requirement and eligibility to go back [facility]. Case management assisting with dispo. Problems addressed as follows: Severe sepsis Acute hypoxemic respiratory failure RLL pneumonia -Supplemental oxygen for goal sats greater 90%, currently on 4 L - Continue broad-spectrum antibiotics with Vanco, azithromycin and Zosyn. Will transition to Augmentin for total of 7 days and complete 3 days of azithromycin 500 mg daily at time of discharge. -DuoNebs every 6 hours scheduled -Blood cultures pending; sputum cultures pending -White cell count elevated at 18 -Tylenol 650 mg as needed every 6 hours for fever pain -Repeat CBC, CMP, magnesium ordered for the morning Electrolyte disturbances: Sodium improving at 132, chloride 91. Potassium 3.8 with normal kidney function with BUN of 9 creatinine of 0.9 Schizophrenia and mood disorder: Continue chlorpromazine 200 mg nightly Continue Klonopin 1 mg nightly Continue olanzapine 20 mg nightly Continue mirtazapine 45 mg nightly Continue oxcarbazepine 300 mg twice daily Continue Zoloft 100 mg daily CAD: Continue Plavix and aspirin daily. GERD: Continue PPI daily Hypertension: Continue metoprolol succinate 100 mg daily, monitor for additional medications given hypertension Tobacco use disorder: Nicotine patch as needed Full code Regular diet Heparin SQ twice daily
[2023-10-22] MEDS: CHLORPROMAZINE 25MG TABLET 200 MG PO (20:27)
[2023-10-22] MEDS: PANTOPRAZOLE 40MG VIAL 40 MG IV (20:28)
[2023-10-22] MEDS: MIRTAZAPINE 15 MG TABLET 45 MG PO (20:28)
[2023-10-22] MEDS: OLANZapine 5 MG ODT TABLET 20 MG SL (20:28)
[2023-10-22] MEDS: SODIUM CHLORIDE 0.9% 10ML VIAL 10 ML IV (20:28)
[2023-10-23] VITALS (7 sets, daily range): BP systolic 132–158; BP diastolic 71–89; PULSE 70–95; RESP 17–21; TEMP 36.5–37.2; O2SAT 86–92; BMI 19.1
[2023-10-23] MEDS: IPRATROPIUM/ALBUTEROL 3 ML NEB IH ×2 (00:09→06:33)
[2023-10-23] MEDS: PIPERCILLIN/TAZO 3.375 GM in 0.9 % SODIUM CHLORIDE 50 ML IV ×2 (00:39→05:08)
--- NOTE | 2023-10-23 04:58 | PC.NURSE ---
Pt is alert to self and place. Pt is currently on 4.5L NC, O2 sat >90%. Pt has had to go up to 6L at times while sleeping, but after being aroused, pt is able to be weaned back to 4.5L. Pt has had no complaints this shift. Used urinal with assistance. Bed alarm on. Call light in reach.
[2023-10-23] MEDS: VANCOMYCIN HCL 1,000 MG in 0.9 % SODIUM CHLORIDE 250 ML 125 MG IV (06:01)
[2023-10-23 06:43] LABS: Basophils % 0.3 % (0.1-2.0); Eosinophils # 0.4 K/mm3 (0.0-0.4); Eosinophils % 3.7 % (0.1-12.0); Hematocrit 35.2 % (42.0-52.0); Hemoglobin 9.9 g/dL (14.1-18.0); Lymphocytes # 1.7 K/mm3 (0.7-4.5); Lymphocytes % 17.3 % (10-50); Mean Corpuscular HGB Conc 28.2 g/dL (31.8-35.4); Mean Corpuscular Hemoglobin 23.5 pg (27.0-31.2); Mean Corpuscular Volume 83.4 fl (80-94); Mean Platelet Volume 7.3 fl (7.4-10.4); Monocytes # 0.7 K/mm3 (0.1-1.0); Monocytes % 6.8 % (1.7-9.3); Platelet Count 353 K/mm3 (142-424); Red Blood Count 4.22 M/mm3 (4.60-6.20); Red Cell Distribution Width 17.6 % (11.5-17.5); White Blood Count 9.7 K/mm3 (4.8-10.8)
[2023-10-23 06:47] LABS: Blood Urea Nitrogen 8 mg/dl (9-20); Calcium 8.2 mg/dl (8.4-10.2); Carbon Dioxide 36 mmol/L (22.0-30.0); Chloride 97 mmol/L (98-107); Creatinine Clearance Estimated 63 mL/min (50-200); Estimated Glomerular Filt Rate 98 ml/min (>60); GFR (African American) 119 ML/MIN (>60); Glucose 87 mg/dl (74-100); Sodium 135 mmol/L (136-145)
--- NOTE | 2023-10-23 07:54 | P.DS_ITS ---
General Admission date:: 10/21/23 Discharge date: 10/23/23 HPI HPI HPI: Mr. Abrams is a 63-year-old male who lives at [facility]. History of tobacco dependence, COPD, CAD, schizophrenia, hypertension. He presented to the ER because of confusion, low oxygen and fever. He is unable to give significant history. States he is feeling better by the time I interviewed him. Denies significant chest pain, nausea or vomiting. Patient appears however to have vomited by the time he got to the ER. Frankly encephalopathic and hypoxic on arrival to the ER. Majority of history obtained from previous notes. Workup in the ER concerning for sepsis with leukocytosis, tachycardia, tachypnea, hypoxia. Febrile to 101. Also noted to have hyponatremia of 128. Chest imaging with right lower lobe pneumonia. Medicine consulted for admission and further management of sepsis with acute hypoxemic respiratory failure secondary to pneumonia. On my evaluation, patient is resting comfortably on 6 L nasal cannula. Appears no acute distress. Answers basic questions of his name and how he is feeling but unable to give significant review of systems, anderson negative when asked questions. Hospital Course Hospital Course Hospital Course: 63-year-old male meeting severe sepsis criteria with tachypnea, tachycardia, fever, leukocytosis, chest imaging with multifocal pneumonia. Workup in the ER concerning for new oxygen requirement, Acute hypoxemic respiratory failure. Discussed case with ER physician, request admission for treatment of her severe sepsis, IV antibiotics, and further management. Medicine agreed to admit. Continue IV antibiotics with broad-spectrum vancomycin, azithromycin, and Zosyn. Given location of pneumonia predominantly right lower lobe, concern for aspiration component. Necessitating inpatient admission. PSI/port score 101 (Age 63, male, altered mental status, sodium less than 130), class IV risk. Patient showing improvement. Will need to be discharged to SNF given oxygen requirement and eligibility to go back [facility]. Case management assisting with dispo. Problems addressed as follows: Severe sepsis - dc on oral ABx Acute hypoxemic respiratory failure - stable RLL pneumonia - DC on oral Abx Electrolyte disturbances: Sodium improving at 132, chloride 91. Potassium 3.8 with normal kidney function with BUN of 9 creatinine of 0.9 Schizophrenia and mood disorder: Continue chlorpromazine 200 mg nightly Continue Klonopin 1 mg nightly Continue olanzapine 20 mg nightly Continue mirtazapine 45 mg nightly Continue oxcarbazepine 300 mg twice daily Continue Zoloft 100 mg daily CAD: Continue Plavix and aspirin daily. GERD: Continue PPI daily Hypertension: Continue metoprolol succinate 100 mg daily, monitor for additional medications given hypertension Tobacco use disorder: Nicotine patch as needed plan for Discharge to SNF, planned by Hospital physician before my arrival Exam Data for Last 24 hours Vital signs and Labs for Last 24 Hours: Temp Pulse Resp BP Pulse Ox O2 Del Method O2 Flow Rate 97.7 F 79 21 150/85 H 86 L Nasal Cannula 6 10/23/23 07:32 10/23/23 07:32 10/23/23 07:32 10/23/23 07:32 10/23/23 07:32 10/23/23 07:32 10/23/23 07:32 Laboratory Results - last 24 hr 10/23/23 05:14: WBC 9.7 D, RBC 4.22 L, Hgb 9.9 L, Hct 35.2 L, MCV 83.4, MCH 23.5 L, MCHC 28.2 L, RDW 17.6 H, Plt Count 353, MPV 7.3 L, Neut % (Auto) 72.0, Lymph % (Auto) 17.3, [place] % (Auto) 6.8, Eos % (Auto) 3.7, Baso % (Auto) 0.3, Neut # (Auto) 7.0, Lymph # (Auto) 1.7, [place] # (Auto) 0.7, Eos # (Auto) 0.4, Baso # (Auto) 0.0, Sodium 135 L, Potassium 4.0, Chloride 97 L, Carbon Dioxide 36 H, Anion Gap 6.0, BUN 8 L, Creatinine 0.80, Estimated Creat Clear 63, Estimated GFR 98, Est GFR ( Amer) 119, Glucose 87, Calcium 8.2 L I & O for Last 24 hours: Intake & Output 10/20/23 10/21/23 10/22/23 10/23/23 22:59 23:59 23:59 23:59 Intake Total 1460 / 1760 420 / 420 Output Total 2880 / 2880 Balance -1420 / -1120 420 / 420 Weight 54.023 kg 57.107 kg Constitutional Constitutional: no acute distress, thin, chronically ill appearing, disheveled and cooperative *Routine HEENT Exam Head: Present normocephalic Eye: Present EOMI and PERRL ENT: Present mucous membranes moist *Routine Neck Exam Neck: Present supple; Absent lymphadenopathy *Routine Respiratory Exam Respiratory: Present rhonchi, wheezes, normal respiratory effort and symmetric chest movement *Routine Cardiovascular Exam Cardiovascular: Present RRR *Routine Abdominal Exam Abdominal: Present soft and normoactive bowel sounds; Absent tenderness *Routine Rectal Exam Patient deferred: visual exam *Routine Exam Patient deferred: penile exam *Routine Extremities Exam Extremities: Absent cyanosis, clubbing or edema *Routine Skin Exam Skin: Present warm; Absent rash *Routine Neurological Exam Neurological: Present alert and oriented X3; Absent sensory deficit or motor deficit Routine Psychiatric Exam Psychiatric: Present normal thought process and cooperative Results Data Completed and Pending Labs on day of discharge: Labs from last 24 hours 10/23/23 05:14 WBC 9.7 D RBC 4.22 L Hgb 9.9 L Hct 35.2 L MCV 83.4 MCH 23.5 L MCHC 28.2 L RDW 17.6 H Plt Count 353 MPV 7.3 L Neut % (Auto) 72.0 Lymph % (Auto) 17.3 [place] % (Auto) 6.8 Eos % (Auto) 3.7 Baso % (Auto) 0.3 Neut # (Auto) 7.0 Lymph # (Auto) 1.7 [place] # (Auto) 0.7 Eos # (Auto) 0.4 Baso # (Auto) 0.0 Sodium 135 L Potassium 4.0 Chloride 97 L Carbon Dioxide 36 H Anion Gap 6.0 BUN 8 L Creatinine 0.80 Estimated Creat Clear 63 Estimated GFR 98 Est GFR ( Amer) 119 Glucose 87 Calcium 8.2 L DS: Diagnosis Discharge Diagnosis (1) Severe sepsis: Status: Acute Code(s): A41.9 - Sepsis, unspecified organism; R65.20 - Severe sepsis without septic shock (2) Hyponatremia: Status: Acute Code(s): E87.1 - Hypo-osmolality and hyponatremia (3) Hypoxic respiratory failure: Status: Acute Code(s): J96.91 - Respiratory failure, unspecified with hypoxia (4) CAP (community acquired pneumonia): Status: Acute Code(s): J18.9 - Pneumonia, unspecified organism (5) Smoking greater than 30 pack years: Status: Chronic Code(s): F17.210 - Nicotine dependence, cigarettes, uncomplicated (6) Schizophrenia: Status: Acute Code(s): F20.9 - Schizophrenia, unspecified (7) Coronary artery disease: Status: Acute Code(s): I25.10 - Atherosclerotic heart disease of [place] coronary artery without angina pectoris Qualifiers: Coronary Disease-Associated Artery/Lesion type: [place] artery [place] vs. transplanted heart: [place] heart Associated angina: without angina Qualified Code(s): I25.10 - Atherosclerotic heart disease of [place] coronary artery without angina pectoris (8) Hypertension: Status: Acute Code(s): I10 - Essential (primary) hypertension Qualifiers: Hypertension type: primary hypertension Qualified Code(s): I10 - Essential (primary) hypertension (9) Moderate protein-calorie malnutrition: Status: Acute Code(s): E44.0 - Moderate protein-calorie malnutrition (10) Anxiety: Status: Chronic Code(s): F41.9 - Anxiety disorder, unspecified Meds Home Medications and Allergies Home Medications Medication Instructions Recorded Confirmed Type aspirin 81 mg chewable tablet 81 mg PO DAILY Heart health 10/09/22 11/21/22 History metoprolol succinate 100 mg 100 mg PO DAILY High blood pressure 10/09/22 11/21/22 History tablet,extended release 24 hr omeprazole 40 mg capsule,delayed 40 mg PO DAILY acid reflux 10/09/22 11/21/22 Hi story release acetaminophen 500 mg tablet 500 mg PO Q6H PRN Pain 10/10/22 11/21/22 History (Acetaminophen Extra Strength) bismuth subsalicylate 262 mg/15 mL 524 mg PO Q2HP PRN Diarrhea 10/10/22 11/21/22 History oral suspension diphenhydramine HCl 25 mg capsule 25 mg PO QIDP PRN allergies 10/10/22 11/21/22 History (Banophen) guaifenesin 100 mg/5 mL oral 200 mg PO Q4HP PRN Cough 10/10/22 11/21/22 History liquid (Siltussin SA) nicotine 21 mg/24 hr daily 1 patch transdermal DAILYP PRN 10/10/22 11/21/22 History transdermal patch smoking cessation clopidogrel 75 mg tablet (Plavix) 75 mg PO DAILY 21 days #21 tabs 10/17/22 11/21/22 Rx albuterol sulfate 90 mcg/actuation 2 inh inhalation QID PRN shortness 11/21/22 11/21/22 Rx aerosol inhaler of breath or wheezing 90 days #8.5 grams fluticasone fur. 100 mcg-umeclid 1 inh inhalation DAILY 90 days #90 11/21/22 11/21/22 Rx 62.5 mcg-vilant 25 mcg ea inhalat.powder (Trelegy Ellipta) ipratropium 0.5 mg-albuterol 3 mg 3 ml inhalation QID PRN shortness 11/21/22 11/21/22 Rx (2.5 mg base)/3 mL nebulization of breath or wheezing #90 mL soln amoxicillin 500 mg-potassium 1 tab PO TID 4 days #12 tabs 10/22/23 Rx clavulanate 125 mg tablet (Augmentin) azithromycin 500 mg tablet 500 mg PO Q24H 1 day #1 tab 10/22/23 Rx chlorpromazine 200 mg tablet 200 mg PO HS Anxiety 30 days #30 10/22/23 Rx tabs clonazepam 1 mg tablet 1 mg PO QHS Anxiety #30 tabs 10/22/23 Rx mirtazapine 45 mg tablet 45 mg PO HS Depression 30 days #30 10/22/23 Rx tabs olanzapine 20 mg tablet 20 mg PO HS Depression 30 days #30 10/22/23 Rx tabs oxcarbazepine 300 mg tablet 300 mg PO BID Seizure Control 30 10/22/23 Rx days #60 tabs sertraline 100 mg tablet 100 mg PO DAILY Depression 30 days 10/22/23 Rx #30 tabs trazodone 100 mg tablet 100 mg PO HS Sleep 30 days #30 tabs 10/22/23 Rx New Prescriptions to Start Prescriptions: amoxicillin-pot clavulanate [Augmentin] Nikhil,Ford azithromycin Nikhil,Ford chlorpromazine Nikhil,Ford clonazepam Nikhil,Ford mirtazapine Nikhil,Ford olanzapine Nikhil,Ford oxcarbazepine Nikhil,Frod sertraline Nikhil,Ford trazodone Ford Tejeda Allergies Allergy/AdvReac Type Severity Reaction Status Date / Time No Known Allergies Allergy Verified 11/21/22 13:07 Discharge Plan Disposition Patient Disposition: [facility] Condition: Fair Discharge Order Discharge Orders: Discharge Order (Routine); Ordered 10/23/23 Ordered By: Theresa Benítez Follow up Plan Prescriptions/Medication Reconciliation: New azithromycin 500 mg tablet 500 mg PO Q24H 1 Days Qty: 1 0RF Rx Instructions: due 10/22 amoxicillin-pot clavulanate [Augmentin] 500-125 mg tablet 1 tab PO TID 4 Days Qty: 12 0RF Rx Instructions: start evening of 10/22 Continued ipratropium-albuterol 0.5 mg-3 mg(2.5 mg base)/3 mL solution for nebulization 3 ml inhalation QID PRN (Reason: shortness of breath or wheezing) Qty: 90 3RF albuterol sulfate 90 mcg/actuation HFA aerosol inhaler 2 inh inhalation QID PRN (Reason: shortness of breath or wheezing) 90 Days Qty: 8.5 2RF Trelegy Ellipta 100-62.5-25 mcg blister with device 1 inh inhalation DAILY 90 Days Qty: 90 3RF sertraline 100 mg tablet 100 mg PO DAILY 30 Days Qty: 30 0RF clonazepam 1 mg tablet 1 mg PO QHS Qty: 30 5RF oxcarbazepine 300 mg tablet 300 mg PO BID 30 Days Qty: 60 0RF trazodone 100 mg tablet 100 mg PO HS 30 Days Qty: 30 0RF mirtazapine 45 mg tablet 45 mg PO HS 30 Days Qty: 30 0RF chlorpromazine 200 mg tablet 200 mg PO HS 30 Days Qty: 30 0RF olanzapine 20 mg tablet 20 mg PO HS 30 Days Qty: 30 0RF metoprolol succinate 100 mg tablet extended release 24 hr 100 mg PO DAILY omeprazole 40 mg capsule,delayed release(DR/EC) 40 mg PO DAILY aspirin 81 mg tablet,chewable 81 mg PO DAILY acetaminophen [Acetaminophen Extra Strength] 500 mg Tablet 500 mg PO Q6H PRN (Reason: Pain) guaifenesin [Siltussin SA] 100 mg/5 mL Liquid 200 mg PO Q4HP PRN (Reason: Cough) diphenhydramine HCl [Banophen] 25 mg Capsule 25 mg PO QIDP PRN (Reason: allergies) bismuth subsalicylate 262 mg/15 mL Suspension 524 mg PO Q2HP PRN (Reason: Diarrhea) Rx Instructions: do not exceed 8 doses in a 24 hour period nicotine 21 mg/24 hr Patch 24 Hour 1 patch transdermal DAILYP PRN (Reason: smoking cessation ) clopidogrel [Plavix] 75 mg tablet 75 mg PO DAILY 21 Days Qty: 21 0RF Problem Reconciliation Problems Reviewed?: Yes Patient Discharge Instructions ACTIVITY: Continue current activity DIET: continue same diet Providers Primary Care Provider: Provider,Referral Admit Provider: Ford Tejeda Attending Provider: Ford Tejeda
--- NOTE | 2023-10-23 08:59 | PC.NURSE ---
Report called to Vera Pritchard to ZBIGNIEW Martell.
[2023-10-23] MEDS: OXcarbazepine 300MG TABLET 300 MG PO (09:23)
[2023-10-23] MEDS: SERTRALINE 100MG TABLET 100 MG PO (09:23)
[2023-10-23] MEDS: ASPIRIN 81MG CHEWABLE TABLET 81 MG PO (09:23)
[2023-10-23] MEDS: CLOPIDOGREL 75MG TAB 75 MG PO (09:23)
[2023-10-23] MEDS: METOPROLOL SUCCINATE XL 100MG TABLET 100 MG PO (09:24)
== END 2023-10-23 10:00 | DRG 871 ==
LOC: ER 15:40 → ICU 17:02
PROVIDERS: Admitting Provider Internal Medicine Adolescent Medicine; Emergency Provider Student in an Organized Health Care Education/Training Program; Visit Provider Internal Medicine Adolescent Medicine
DX: A41.9 Sepsis, unspecified organism (principal); J18.9 Pneumonia, unspecified organism; J96.01 Acute respiratory failure with hypoxia; E44.0 Moderate protein-calorie malnutrition; E87.1 Hypo-osmolality and hyponatremia; Z68.1 Body mass index [BMI] 19.9 or less, adult; G93.40 Encephalopathy, unspecified; R65.20 Severe sepsis without septic shock; I25.2 Old myocardial infarction; F17.210 Nicotine dependence, cigarettes, uncomplicated; F20.9 Schizophrenia, unspecified; F41.9 Anxiety disorder, unspecified; K21.9 Gastro-esophageal reflux disease without esophagitis; I25.10 Atherosclerotic heart disease of native coronary artery without angina pectoris; I10 Essential (primary) hypertension
CPT/HCPCS: 36415; 70450; 71045; 80048; 80053; 80307; 81001; 82140; 82803; 83605; 83735; 84443; 84484; 85007; 85025; 85378; 87040; 87081; 87636; 93005; 94640; 94761; 97163; 97166; 97530; 99291; J0456; J2543; J3370